=== PATIENT | male | born 1970 | race Caucasian/White ===

== ENCOUNTER 2021-11-07 06:23 | Outpatient (REF) | payer BC, SELFPAY ==
[2021-11-07 11:33] LABS: Appearance Urine TURBID; Color Urine YELLOW; Glucose Urine UA NEG (NEG); Leukocyte Esterase Urine NEG (NEG); Nitrite Urine NEG (NEG); Specific Gravity - Urine >= 1.030 (1.005-1.025); Urine Blood NEG (NEG); Urine Ketones NEG (NEG); Urine Protein NEG (NEG-TRACE)
[2021-11-07 12:00] LABS: Hematocrit 42.7 % (42.0-52.0); Hemoglobin 14.9 g/dl (14.0-18.0); Mean Corpuscular HGB Conc 34.9 g/dl (31.0-36.0); Mean Corpuscular Volume 91.8 fL (80.0-98.0); Mean Platelet Volume 10.6 fL (9.4-12.4); Platelet Count 236 X10*3/uL (160-400); Red Blood Count 4.65 X10*6/uL (4.60-5.80); Red Cell Distribution Width 11.2 % (11.0-16.0); White Blood Count 4.8 X10*3/uL (4.8-10.8)
[2021-11-07 12:03] LABS: Amorphous Sediment Urine 4+ /LPF; RBC Urine 0 /HPF (0); Squamous Epithelial Cell Urine TRACE /LPF; WBC Urine 0 /HPF (0-4)
[2021-11-07 12:52] LABS: Prostate Specific Antigen Scr 2.74 ng/mL (<0.05-4.0)
[2021-11-07 13:21] LABS: Alanine Aminotransferase 31 U/L (0-40); Albumin Level 4.3 g/dL (3.5-5.0); Alkaline Phosphatase 73 U/L (39-117); Anion Gap 13 (12-20); Aspartate Amino Transferase 20 U/L (5-37); Blood Urea Nitrogen 14 mg/dL (9-16); Calcium 9.3 mg/dL (8.4-10.2); Carbon Dioxide 23 mmol/L (22-29); Chloride 107 mmol/L (96-108); Cholesterol 180 mg/dL; Estimated Glomerular Filt Rate > 60; Glucose Fasting 98 mg/dL (60-99); HDL Cholesterol 44 mg/dL; LDL Cholesterol Calculated 111 mg/dl; Potassium 4.2 mmol/L (3.3-5.1); Sodium 139 mmol/L (135-145); Total Protein 6.7 g/dL (6.5-8.0); Triglycerides 128 mg/dL
== END 2021-11-07 06:24 | disposition home or self-care (01) ==
LOC: HO.HMGCLDS 06:23
PROVIDERS: PCP Internal Medicine; Visit Provider Internal Medicine
DX: Z00.00 Encounter for general adult medical examination without abnormal findings (principal); Z12.5 Encounter for screening for malignant neoplasm of prostate; E78.2 Mixed hyperlipidemia
CPT/HCPCS: 36415; 80053; 80061; 81001; 84153; 85027

== ENCOUNTER 2022-03-13 11:40 | Outpatient (REF) | payer BC, SELFPAY ==
[2022-03-13 15:08] LABS: Blood Urea Nitrogen 14 mg/dL (9-16); Estimated Glomerular Filt Rate > 60
== END 2022-03-13 11:41 | disposition home or self-care (01) ==
LOC: HO.HMGCLDS 11:40
PROVIDERS: PCP Internal Medicine; Visit Provider Internal Medicine
DX: Z98.890 Other specified postprocedural states (principal); Z82.49 Family history of ischemic heart disease and other diseases of the circulatory system
CPT/HCPCS: 36415; 82565; 84520

== ENCOUNTER 2022-03-25 08:58 | Outpatient (REF) | payer BC, SELFPAY ==
--- NOTE | ~2022-03-25 | CT_ITS ---
EXAMINATION: CTA OF THE CHEST WITHOUT AND WITH CONTRAST CLINICAL INFORMATION: Family history of ischemic heart disease COMPARISON: Chest x-ray 10/21/2016. TECHNIQUE: CT angiography of the chest was performed without and with contrast. 70 mL Omnipaque 350 administered intravenously without complication. 3D POSTPROCESSING: Multiple 3-D angiographic images were processed from the initial data set by the [facility] under concurrent physician supervision. DOSE LOWERING TECHNIQUES: This CT examination was performed using dose optimization techniques as appropriate, variously including the following: - Automated exposure control - Adjustment of mA and/or kV according to patient size (this includes techniques or standardized protocols for targeted exams where dose is matched to indication/reason for exam; i.e. extremities or head) - Use of iterative construction technique DOSE-LENGTH PRODUCT: 1087 FINDINGS: CORONARY ARTERIES: No substantial calcium. ASCENDING AORTA: Pulsation artifact obscures the aortic root and creates artifact. The valve appears tricuspid and the sinuses measure up to 5.1 x 4.3 cm, which may be artifactually enlarged due to pulsation. This could be correlated with echocardiogram. The sinotubular junction measures 4.5 x 3.9 cm. The tubular segment measures 4.6 x 4.3 cm. AORTIC ARCH: The proximal aortic arch measures 3.8 x 3.5 cm. The distal aortic arch measures 3.0 x 2.8 cm. Variant aortic arch anatomy. The innominate artery and the left common carotid artery share an origin. The left vertebral artery arises independently from the arch as the second vessel. The left subclavian artery is the third vessel. The origins are widely patent. There is minimal atherosclerosis of the proximal left subclavian artery. DESCENDING AORTA: The proximal segment measures 3.0 x 2.8 cm. The distal segment measures 2.8 x 2.6 cm. INCLUDED UPPER ABDOMINAL AORTA: The upper abdominal aorta is normal in caliber. The included celiac artery is mildly stenosed at the origin. PULMONARY ARTERIES: The exam was performed in the systemic arterial phase and not timed to evaluate the pulmonary arteries. NONVASCULAR: Arterial phase imaging limits evaluation of nonvascular structures. No suspicious lung nodules. No mediastinal adenopathy. Fatty liver. Degenerative changes in the thoracic spine. CT/CT angio chest aorta IMPRESSION: Ascending aortic aneurysm measuring 4.6 x 4.3 cm. Pulsation artifact limits accurate evaluation of the aortic root which measures up to 5.1 x 4.3 cm. Recommend correlation with echocardiogram.
[2022-03-25] MEDS: iohexoL 350 MG/ML 75 ML INFUS..BTL 70 ML IV (09:50)
== END 2022-03-25 08:59 | disposition home or self-care (01) ==
LOC: HO.CT 08:58
PROVIDERS: PCP Internal Medicine; Visit Provider Internal Medicine
DX: Z13.6 Encounter for screening for cardiovascular disorders (principal); Z82.49 Family history of ischemic heart disease and other diseases of the circulatory system
CPT/HCPCS: 71275; Q9967

== ENCOUNTER → 2022-04-23 08:26 | Outpatient (REF) | payer BC, SELFPAY ==
--- NOTE | 2022-04-23 08:31 | CA_ITS ---
Transthoracic Echocardiogram Patient (Last, First, Middle): Stefano Simmons A Gender: Male Date of : 1970 Age: 51 Procedure Date: 04/23/2022 Procedure Type: Transthoracic Echocardiogram Location: OP Height: 190.5 cm Weight: 103.42 kg BSA: 2.32 m2 Heart Rate: 60 bpm BP: 130 / 100 mmHg Embroidery Supervisor: JANELLE García MD: Diane Polanco MD Marble Installer Supervisor: Devin Jay MD Symptoms: I77.810 - Thoracic aortic ectasia Study Quality: Fair ECG Rhythm: Sinus Conclusions: - 1. Moderately dilated ascending aorta at 4.5 cm 2. Normal LV systolic and diastolic function 3. Normal RV systolic pressure 4. Normal cardiac valvular Doppler 5. No gross pericardial effusion Findings Left Ventricle Normal left ventricular size, thickness, and systolic function. The visually estimated ejection fraction is between 55-60%. Spectral Doppler is indicative of a normal filling pattern. Right Ventricle Normal right ventricular cavity size. There is low normal right ventricular systolic function. Atria The left atrium is likely dilated. There is no evidence of interatrial shunt. The right atrium is normal in size. Aortic Valve There is mild calcification of the aortic valve. There is no aortic valve stenosis. There is no aortic valve regurgitation. Mitral Valve Normal mitral valve structure and function. There is trace mitral valve regurgitation. There is no mitral valve stenosis. Pulmonic Valve The pulmonic valve is likely normal. Tricuspid Valve Likely normal tricuspid valve structure and function. The right ventricular systolic pressure is normal. The right ventricular systolic pressure is 20 mmHg. Normal right atrial pressure. There is no evidence of pulmonary hypertension. Great Vessels The pulmonary artery was not well visualized. There is moderate dilatation of the ascending aorta measuring 4.50 cm. Venous The inferior vena cava is normal in size and collapses greater than 50% with inspiration. Pericardium/Pleural There is no evidence of pericardial effusion. Prior Study Comparison No prior study available for comparison. Measurements 2D Linear Measurements IVSd: 1.24 0.6-0.9/0.6-1.0 cm LVIDd: 5.44 3.9-5.3/4.2-5.9 cm LVIDd Index: 2.34 2.4-3.2/2.2-3.1 cm/m2 LVIDs: 3.58 2.0-3.6 cm LVPWd: 0.95 0.7-1.1 cm LA Diam: 4.00 2.7-3.8/3.0-4.0 cm LAIDs Index: 1.72 1.5-2.3 cm/m2 LV Mass: 295.26 67-162/88-224 g LV Mass Index: 127.27 43-95/49-115 g/m2 LVOT Diam: 2.60 3.0+(-)1.3 cm 2D Systolic Function EF 4C: 55.30 >55% EF 2C: 58.40 >55% EF BiP: 55.80 >55% Mitral Valve MV Pk E: 0.63 MV PK A: 0.52 MV Decel Time: 180.00 E/A: 1.20 E'Lateral: 11.30 E'Medial: 6.42 E/E' Med: 9.80 E/E' Lat: 5.50 PHT: 53.00 MVA PHT: 4.15 Decel [place]: 3.48 Aortic Valve AoV Pk Jean-Pierre: 1.24 AoV Mn Jean-Pierre: 0.92 AoV VTI: 0.28 AoV Pk Grad: 6.00 Aov Mn Grad: 4.00 SHAREE Cont.VTI: 4.95 LVOT LVOT Pk Jean-Pierre: 1.20 LVOT Mn Jean-Pierre: 0.75 LVOT VTI: 0.26 LVOT Pk Grad: 6.00 LVOT Mn Grad: 3.00 LVOT Diam: 2.60 LVOT Area: 5.31 Diastolic Function MV Pk E: 0.63 MV Pk A: 0.52 E/A: 1.20 E'Medial: 6.42 E/E' Med: 9.80 E' Laterial: 11.30 E/E' Lat: 5.50 Right Ventricle TAPSE (mm): 16.80 TVS' Jean-Pierre: 13.80 Tricuspid Valve TR Pk Jean-Pierre: 2.04 TR Pk Grad: 17.00 RA Press: 3.00 RVSP: 20.00 Great Vessels Aorta Sinus of Valsalva: 5.00 2.0-3.5 cm Ao Asc: 4.50 2.1-3.4 cm Pulmonary Valve PV Pk Jean-Pierre: 0.71 Peak PV Grad: 2.00 Updated in Other Vendor System with Status of Final Devin Jay MD electronically signed on 04/23/2022 12:02:24 PM with status of Final
== END ==
LOC: HO.CARD 08:26
PROVIDERS: PCP Internal Medicine; Visit Provider Internal Medicine
DX: I77.810 Thoracic aortic ectasia (principal)
CPT/HCPCS: 93306

== ENCOUNTER → 2023-04-16 10:16 | Outpatient (BNVA) | payer SELFPAY | PROVIDERS: PCP Internal Medicine; Visit Provider Physician Assistant ==

== ENCOUNTER 2023-04-23 08:48 | Outpatient (AMB) | payer BC, SELFPAY ==
[2023-04-23 08:57] VITALS: BP 110/76; PULSE 65; O2SAT 97; BMI 29.7
--- NOTE | 2023-04-23 08:57 | A.OFFPC_ITS ---
Vital Signs 04/23/23 08:57 Height 6 ft 3 in Weight 238 lb BMI 29.7 BP 110/76 Blood Pressure Location Lt brachial Position Sitting Pulse 65 Pulse Source Pulse Oximeter Pulse Oximetry (%) 97 Oxygen Delivery Method Room Air Intake Visit Reasons: Annual PE Intake Note: Pt is here today for PE. Allergies No Known Allergies Allergy (Verified 04/23/23 08:57) Medication List - Last Reconciled 04/23/23 by Diane Polanco MD omeprazole 20 mg PO DAILY simvastatin 20 mg PO DAILY Tobacco use date assessed: 04/23/23 Dental Screening Dental Screen Date: 04/23/23 Did you have a dental visit in the last 12 months?: Yes Did you have a dental problem in the last 6 months where you did not have access to dental care?: No Was dental information given to patient?: Patient has dentist HPI Annual PE HPI Details Patient presents for physical PFSH Medical History (Updated 04/23/23 @ 09:58 by Diane Polanco MD) Annual physical exam Surgical History (Updated 04/23/23 @ 09:59 by Diane Polanco MD) H/O esophagogastroduodenoscopy H/O colonoscopy Family History Father No problems noted. Mother No problems noted. Social History Household Members Other:: , 2 daughters in [place] school Housing: House Patient Tobacco Use Status: Never used Tobacco e-Cigarette/Vaping Use: Never Used Current occupational status: employed Cognitive needs: No Hearing needs: No Vision needs: No Questionnaire PHQ-9 Over the last 2 weeks, how often have you been bothered by any of the following problems? 1. Little interest or pleasure in doing things: not at all 2. Feeling down, depressed, or hopeless: not at all 3. Trouble falling or staying asleep, or sleeping too much: not at all 4. Feeling tired or having little energy: not at all 5. Poor appetite or overeating: not at all 6. Feeling bad about yourself - or that you are a failure or have let yourself or your family down: not at all 7. Trouble concentrating on things, such as reading the newspaper or watching television: not at all 8. Moving or speaking so slowly that other people could have noticed. Or the opp osite - being so fidgety or restless that you have been moving around a lot more than usual: not at all 9. Thoughts that you would be better off or of hurting yourself in some way: not at all Total score: 0 Depression Screening Interpretation: Negative Source: Developed by Drs. Ervin Sprague, Tiffany Siegel, Yuriy Burton and colleagues, with an educational oliverio from [employer]. Thrive Questionnaire Date Thrive assessed: 04/23/23 I am a: Patient What is your living situation today?: I have a steady place to live Within the past 12 months, did the food you bought not last and you didn't have the money to get more?: Never true Within the past 12 months, did you worry whether your food would run out before you got money to buy more?: Never true Do you have trouble paying for medicines?: No Do you have trouble getting transportation to medical appointments?: No Do you have trouble paying your heating and electricity bill?: No Do you have trouble taking care of your child, family member or friend?: No Do you have trouble with day-to-day activities such as bathing, preparing meals, shopping, managing finances, etc.?: No Are you currently unemployed and looking for a job?: No Are you interested in more education?: No Please select the resources that you would like help with: None Currently or been in a relationship where the following occur: no concerns reported AUDIT C Alcohol Use Questionnaire (AUDIT-C) 1. How often do you have a drink containing alcohol?: 2-3 times a week 2. How many drinks containing alcohol do you have on a typical day when you are drinking?: 3 or 4 3. How often do you have six or more drinks on one occasion?: Never Total Score: 4 RACIEL-7 AMB Questionnaire RACIEL-7 Date RACIEL - 7 assessed: 04/23/23 Feeling nervous, anxious, or on edge: 0 = Not at all Not being able to stop or control worryin = Not at all Worrying too much about different things: 0 = Not at all Trouble relaxin = Not at all Being so restless that it is hard to sit still: 0 = Not at all Becoming easily annoyed or irritable: 0 = Not at all Feeling afraid as if something awful might happen: 0 = Not at all Total RACIEL-7 score (0-4 normal; 5-9 mild; 10-14 moderate; 15-21 severe): 0 Source: Developed by Drs. Ervin Sprague, Tiffany Siegel, Yuriy Burton and colleagues, with an educational oliverio from [employer]. Review of Systems Const All systems reviewed & are unremarkable except as noted in HPI and below Reports no additional complaints Eyes Reports no additional complaints ENT Reports no additional complaints Card Reports no additional complaints Resp Reports no additional complaints GI Reports no additional complaints Reports no additional complaints Physical exam (Primary Care) Vital Signs: Last Vital Signs Pulse 65 04/23/23 08:57 BP 110/76 04/23/23 08:57 Pulse Ox 97 04/23/23 08:57 Oxygen Delivery Method Room Air 04/23/23 08:57 BMI result Body Mass Index 29.7 Tobacco/Smoking Status: Tobacco use Status Tobacco use date assessed 04/23/23 04/23/23 09:00 Patient Tobacco Use Status Never used Tobacco 04/23/23 09:00 e-Cigarette/Vaping Use Never Used 04/23/23 08:57 PHQ-9: PHQ-9 Score PHQ-9: Total score 0 04/23/23 09:13 Depression Screening Interpretation: Negative Thrive Assessment: Date of Thrive Assessment Date Thrive assessed 04/23/23 04/23/23 09:13 Currently or been in a relationship where the following occur: no concerns reported Const General: no acute distress HENOR Head: Yes normal to inspection Ears: hearing grossly normal bilaterally Face and sinus: Yes normal facial exam Throat: Yes posterior oropharynx normal Eyes General: appearance normal, both eyes and all related structures Neck Neck: Yes no lymphadenopathy and Yes supple Resp Effort & Inspection: normal respiratory effort Auscultation: clear to auscultation bilaterally Cardio Rhythm: regular rhythm Heart sounds: S1 normal heart sound present and S2 normal heart sound present GI Inspection: Yes normal to inspection Palpation (GI): Soft to palpation Percussion: Yes normal to percussion Auscultation: normal bowel sounds Assessment and Plan Assessment & Plan (1) Ascending aorta dilation: Comment: 4.4 cm , 06/2022, unchanged 10/2022 f/u with [facility] cardiac surgeon , CT Q 6 months Code(s): I77.810 - Thoracic aortic ectasia (2) FHx: aortic aneurysm: Comment: FATHER chest aneurysm, paternal chest aneurysm uncle 58 Code(s): Z82.49 - Family history of ischemic heart disease and other diseases of the circulatory system (3) Mixed hyperlipidemia: Code(s): E78.2 - Mixed hyperlipidemia Plan: Simvastatin will be changed to Crestor 20 mg a day to keep LDL less than 100. Patient will return for fasting blood work 1 month after starting Crestor. Low- cholesterol diet regular physical activity discussed with the patient (4) Annual physical exam: Code(s): Z00.00 - Encounter for general adult medical examination without abnormal findings Plan: Well-balanced diet regular physical activity discussed with the patient. He is up-to-date with colonoscopy EGD. Patient will return in 1 year for physical with fasting labs before (5) H/O esophagogastroduodenoscopy: Comment: pre Barretts esphagus EGD 2017, repeat [address] Elias, on lifetime PPI Code(s): Z98.890 - Other specified postprocedural states Plan: Continue PPI Orders: Orders Comprehensive [place]. Panel Fast Today E78.2 - Mixed hyperlipidemia, I77.810 - Thoracic aortic ectasia, Z00.00 - Encounter for general adult medical examination without abnormal findings, Z82.49 - Family history of ischemic heart disease and other diseases of the circulatory system Lipid Panel Today E78.2 - Mixed hyperlipidemia, I77.810 - Thoracic aortic ectasia, Z00.00 - Encounter for general adult medical examination without abnormal findings, Z82.49 - Family history of ischemic heart disease and other diseases of the circulatory system PSA,Total (Free>4and<10) Today E78.2 - Mixed hyperlipidemia, I77.810 - Thoracic aortic ectasia, Z00.00 - Encounter for general adult medical examination without abnormal findings, Z82.49 - Family history of ischemic heart disease and other diseases of the circulatory system Lipid Panel 365 Days E78.2 - Mixed hyperlipidemia, I77.810 - Thoracic aortic ectasia, Z00.00 - Encounter for general adult medical examination without abnormal findings PSA,Total (Free>4and<10) 365 Days E78.2 - Mixed hyperlipidemia, I77.810 - Thoracic aortic ectasia, Z00.00 - Encounter for general adult medical examination without abnormal findings Complete Blood Count Auto Diff Today E78.2 - Mixed hyperlipidemia, I77.810 - Thoracic aortic ectasia, Z00.00 - Encounter for general adult medical examination without abnormal findings, Z82.49 - Family history of ischemic heart disease and other diseases of the circulatory system TSH reflex Free T4 Today E78.2 - Mixed hyperlipidemia, I77.810 - Thoracic aortic ectasia, Z00.00 - Encounter for general adult medical examination without abnormal findings, Z82.49 - Family history of ischemic heart disease and other diseases of the circulatory system Comprehensive [place]. Panel Fast 365 Days E78.2 - Mixed hyperlipidemia, I77.810 - Thoracic aortic ectasia, Z00.00 - Encounter for general adult medical examination without abnormal findings Complete Blood Count Auto Diff 365 Days E78.2 - Mixed hyperlipidemia, I77.810 - Thoracic aortic ectasia, Z00.00 - Encounter for general adult medical examination without abnormal findings Medications: New rosuvastatin (Crestor) 20 mg PO DAILY 90 tabs 3RF Coding Level of Care Code Est Pt Prev Care 40-64y(94362) Diagnoses Ascending aorta dilation I77.810 FHx: aortic aneurysm Z82.49 Mixed hyperlipidemia E78.2 Annual physical exam Z00.00 H/O esophagogastroduodenoscopy Z98.890
== END 2023-04-23 10:00 | disposition home or self-care (01) ==
PROVIDERS: PCP Internal Medicine; Visit Provider Internal Medicine
DX: Z00.00 Encounter for general adult medical examination without abnormal findings (principal); I77.810 Thoracic aortic ectasia; Z82.49 Family history of ischemic heart disease and other diseases of the circulatory system; Z98.890 Other specified postprocedural states; E78.2 Mixed hyperlipidemia
CPT/HCPCS: 99396

== ENCOUNTER 2023-06-20 07:07 | Outpatient (REF) | payer BC, SELFPAY ==
[2023-06-20 11:22] LABS: MANUAL DIFF FLAG NO
[2023-06-20 11:42] LABS: Basophils Percent Auto 0.4 % (0-2); Eosinophils Absolute Auto 0.1 X10*3/uL (0.0-0.4); Eosinophils Percent Auto 2.7 % (0-4); Hematocrit 44.1 % (42.0-52.0); Hemoglobin 15.5 g/dl (14.0-18.0); Imm Gran Abs Auto 0.02 X10*3/uL (0.00-0.03); Imm Gran Pct Auto 0.4 % (0.0-0.4); Lymphocytes Absolute Auto 1.1 X10*3/uL (1.2-4.9); Lymphocytes Percent Auto 20.9 % (20-40); Mean Corpuscular HGB Conc 35.1 g/dl (31.0-36.0); Mean Corpuscular Hemoglobin 32.3 pg (27.0-33.0); Mean Corpuscular Volume 91.9 fL (80.0-98.0); Mean Platelet Volume 10.9 fL (9.4-12.4); Monocytes Absolute Auto 0.6 X10*3/uL (0.1-1.2); Monocytes Percent Auto 10.6 % (2-11); Neutrophils Absolute Auto 3.4 x10*3/uL (2.0-8.3); Platelet Count 262 X10*3/uL (160-400); Red Cell Distribution Width 11.2 % (11.0-16.0); White Blood Count 5.3 X10*3/uL (4.8-10.8)
[2023-06-20 12:17] LABS: PSA,Total (Free>4and<10) 2.96 ng/mL (0.00-4.00)
[2023-06-20 12:28] LABS: Alanine Aminotransferase 40 U/L (0-40); Albumin Level 4.5 g/dL (3.5-5.0); Alkaline Phosphatase 81 U/L (39-117); Anion Gap 11 (12-20); Aspartate Amino Transferase 25 U/L (5-37); Bilirubin Total 0.4 mg/dL (0.0-1.0); Blood Urea Nitrogen 14 mg/dL (9-16); Calcium 9.5 mg/dL (8.4-10.2); Carbon Dioxide 25 mmol/L (22-29); Chloride 110 mmol/L (96-108); Cholesterol 189 mg/dL (<200); Estimated Glomerular Filt Rate > 60; Glucose Fasting 93 mg/dL (60-99); HDL Cholesterol 46 mg/dL (>40); LDL Cholesterol Calculated 96 mg/dL (<100); Potassium 4.5 mmol/L (3.3-5.1); Sodium 141 mmol/L (135-145); Total Protein 7.3 g/dL (6.5-8.0); Triglycerides 239 mg/dL (<150)
[2023-06-20 12:29] LABS: TSH reflex Free T4 1.42 uIU/mL (0.32-4.0)
== END 2023-06-20 07:08 | disposition home or self-care (01) ==
LOC: HO.HMGCLDS 07:07
PROVIDERS: PCP Internal Medicine; Visit Provider Internal Medicine
DX: Z00.00 Encounter for general adult medical examination without abnormal findings (principal); Z12.5 Encounter for screening for malignant neoplasm of prostate; I77.810 Thoracic aortic ectasia; E78.2 Mixed hyperlipidemia; Z82.49 Family history of ischemic heart disease and other diseases of the circulatory system
CPT/HCPCS: 36415; 80053; 80061; 84153; 84443; 85025

== ENCOUNTER 2024-04-20 06:16 | Outpatient (REF) | payer BC, SELFPAY ==
[2024-04-20 10:41] LABS: Anion Gap 11 (12-20); Blood Urea Nitrogen 14 mg/dL (9-16); Calcium 9.6 mg/dL (8.4-10.2); Carbon Dioxide 25 mmol/L (22-29); Chloride 106 mmol/L (96-108); Estimated Glomerular Filt Rate > 60; Glucose Fasting 108 mg/dL (60-99); Potassium 4.2 mmol/L (3.3-5.1); Sodium 138 mmol/L (135-145)
== END 2024-04-20 06:17 | disposition home or self-care (01) ==
LOC: HO.HMGCLDS 06:16
PROVIDERS: PCP Internal Medicine; Visit Provider Internal Medicine Cardiovascular Disease
DX: E78.2 Mixed hyperlipidemia (principal); I71.21 Aneurysm of the ascending aorta, without rupture
CPT/HCPCS: 36415; 80048

== ENCOUNTER 2024-05-03 08:00 | Outpatient (AMB) | payer BC, SELFPAY ==
[2024-05-03 08:01] VITALS: BP 120/76; PULSE 67; O2SAT 96; BMI 29.0
--- NOTE | 2024-05-03 08:01 | MHC.PC.OV ---
Vital Signs 05/03/24 08:01 Height 6 ft 3 in Weight 232 lb BMI 29.0 BP 120/76 Blood Pressure Location Rt brachial Position Sitting Pulse 67 Pulse Source Pulse Oximeter Pulse Oximetry (%) 96 Oxygen Delivery Method Room Air Intake Visit Reasons: PE Intake Note: Pt is here today for PE. Allergies No Known Allergies Allergy (Verified 05/03/24 08:03) Medication List - Last Reconciled 05/03/24 by Diane Polanco MD omeprazole 20 mg PO DAILY rosuvastatin 20 mg PO DAILY Tobacco use date assessed: 05/03/24 Dental Screening Dental Screen Date: 05/03/24 Did you have a dental visit in the last 12 months?: Yes Did you have a dental problem in the last 6 months where you did not have access to dental care?: No Was dental information given to patient?: Patient has dentist HPI PE HPI Details Patient presents for physical. He is scheduled to have chest and abdominal CT angiogram of aorta to follow-up on ascending aorta aneurysm. Patient follows up with the Cardiology in [place]. Patient reports his witnessed him having apnea episodes and loud snoring. [facility] Medical History (Updated 05/03/24 @ 08:17 by Diane Polanco MD) Annual physical exam Surgical History H/O esophagogastroduodenoscopy H/O colonoscopy Family History Father No problems noted. Mother No problems noted. Social History Household Members Other:: , 2 daughters in [place] school Housing: House Patient Tobacco Use Status: Never used Tobacco e-Cigarette/Vaping Use: Never Used service: No Current occupational status: employed Cognitive needs: No Hearing needs: No Vision needs: No Questionnaire PHQ-9 Over the last 2 weeks, how often have you been bothered by any of the following problems? 1. Little interest or pleasure in doing things: not at all 2. Feeling down, depressed, or hopeless: not at all 3. Trouble falling or staying asleep, or sleeping too much: not at all 4. Feeling tired or having little energy: not at all 5. Poor appetite or overeating: not at all 6. Feeling bad about yourself - or that you are a failure or have let yourself or your family down: not at all 7. Trouble concentrating on things, such as reading the newspaper or watching television: not at all 8. Moving or speaking so slowly that other people could have noticed. Or the opposite - being so fidgety or restless that you have been moving around a lot more than usual: not at all 9. Thoughts that you would be better off or of hurting yourself in some way: not at all Total score: 0 Depression Screening Interpretation: Negative Depression Screening Done: Yes 54524 - PHQ-9 Billing: Yes Source: Developed by Drs. Ervin Sprague, Tiffany Siegel, Yuriy Burton and colleagues, with an educational oliverio from [employer]. Thrive Questionnaire Date Thrive assessed: 05/03/24 I am a: Patient What is your living situation today?: I have a steady place to live Within the past 12 months, did the food you bought not last and you didn't have the money to get more?: Never true Within the past 12 months, did you worry whether your food would run out before you got money to buy more?: Never true Do you have trouble paying for medicines?: No Do you have trouble getting transportation to medical appointments?: No Do you have trouble paying your heating and electricity bill?: No Do you have trouble taking care of your child, family member or friend?: No Do you have trouble with day-to-day activities such as bathing, preparing meals, shopping, managing finances, etc.?: No Are you currently unemployed and looking for a job?: No Are you interested in more education?: No Please select the resources that you would like help with: None Currently or been in a relationship where the following occur: No concerns reported THRIVE Score: 0 AUDIT C Alcohol Use Questionnaire (AUDIT-C) 1. How often do you have a drink containing alcohol?: 2-3 times a week 2. How many drinks containing alcohol do you have on a typical day when you are drinking?: 3 or 4 3. How often do you have six or more drinks on one occasion?: Monthly Total Score: 6 RACIEL-7 AMB Questionnaire RACIEL-7 Date RACIEL - 7 assessed: 05/03/24 Feeling nervous, anxious, or on edge: 0 = Not at all Not being able to stop or control worryin = Not at all Worrying too much about different things: 0 = Not at all Trouble relaxin = Not at all Being so restless that it is hard to sit still: 0 = Not at all Becoming easily annoyed or irritable: 0 = Not at all Feeling afraid as if something awful might happen: 0 = Not at all Total RACIEL-7 score (0-4 normal; 5-9 mild; 10-14 moderate; 15-21 severe): 0 Source: Developed by Drs. Ervin Sprague, Tiffany Siegel, Yuriy Burton and colleagues, with an educational oliverio from [employer]. RACIEL-7 Assessment Billing RACIEL-7 Assessment Tool: RACIEL-7 Assessment 04648 Review of Systems Const All systems reviewed & are unremarkable except as noted in HPI and below Eyes Reports no additional complaints ENT Reports no additional complaints Card Reports no additional complaints Resp Reports no additional complaints GI Reports no additional complaints Reports no additional complaints Musc Reports no additional complaints Physical exam (Primary Care) Vital Signs: Last Vital Signs Pulse 67 05/03/24 08:01 BP 120/76 05/03/24 08:01 Pulse Ox 96 05/03/24 08:01 Oxygen Delivery Method Room Air 05/03/24 08:01 BMI result Body Mass Index 29.0 Tobacco/Smoking Status: Tobacco use Status Tobacco use date assessed 05/03/24 05/03/24 08:06 Patient Tobacco Use Status Never used Tobacco 05/03/24 08:02 e-Cigarette/Vaping Use Never Used 05/03/24 08:02 PHQ-9: PHQ-9 Score PHQ-9: Total score 0 05/03/24 08:06 Depression Screening Interpretation: Negative Thrive Assessment: Date of Thrive Assessment Date Thrive assessed 05/03/24 05/03/24 08:06 Currently or been in a relationship where the following occur: No concerns reported Const General: no acute distress HENMT Head: Yes normal to inspection Ears: hearing grossly normal bilaterally General nose exam: Normal external nose present Mouth: Normal oral and palatal mucosa present Throat: Yes posterior oropharynx normal Eyes General: appearance normal, both eyes and all related structures Neck Neck: Yes no lymphadenopathy and Yes supple Resp Effort & Inspection: normal respiratory effort Auscultation: clear to auscultation bilaterally Cardio Rhythm: regular rhythm Heart sounds: S1 normal heart sound present and S2 normal heart sound present GI Inspection: Yes normal to inspection Palpation (GI): Soft to palpation Percussion: Yes normal to percussion Auscultation: normal bowel sounds Assessment and Plan Assessment & Plan (1) Mixed hyperlipidemia: Code(s): E78.2 - Mixed hyperlipidemia Plan: Continue rosuvastatin return for fasting labs including lipid profile (2) Annual physical exam: Code(s): Z00.00 - Encounter for general adult medical examination without abnormal findings Plan: Well-balanced diet regular physical activity discussed with the patient. He is up-to-date with colonoscopy (3) Ascending aorta dilation: Comment: 4.4 cm , 06/2022, unchanged 10/2022 f/u with [facility] cardiac surgeon , CT Q 6 months Code(s): I77.810 - Thoracic aortic ectasia Plan: Follow-up with Cardiology (4) Sleep apnea: Code(s): G47.30 - Sleep apnea, unspecified Plan: Scheduled sleep test to evaluate for obstructive sleep apnea (5) FHx: aortic aneurysm: Comment: FATHER chest aneurysm, paternal chest aneurysm uncle 58 Code(s): Z82.49 - Family history of ischemic heart disease and other diseases of the circulatory system Orders: Orders Hemoglobin A1c Today E78.2 - Mixed hyperlipidemia, Z00.00 - Encounter for general adult medical examination without abnormal findings UA w Microscopic 1 Year E78.2 - Mixed hyperlipidemia, G47.30 - Sleep apnea, unspecified, Z00.00 - Encounter for general adult medical examination without abnormal findings, Z82.49 - Family history of ischemic heart disease and other diseases of the circulatory system PSA,Total (Free>4and<10) 1 Year Z00.00 - Encounter for general adult medical examination without abnormal findings Comprehensive [place]. Panel Fast Today E78.2 - Mixed hyperlipidemia, I77.810 - Thoracic aortic ectasia, Z00.00 - Encounter for general adult medical examination without abnormal findings Lipid Panel Today E78.2 - Mixed hyperlipidemia, I77.810 - Thoracic aortic ectasia, Z00.00 - Encounter for general adult medical examination without abnormal findings Complete Blood Count Auto Diff Today E78.2 - Mixed hyperlipidemia, I77.810 - Thoracic aortic ectasia, Z00.00 - Encounter for general adult medical examination without abnormal findings PSA,Total (Free>4and<10) Today E78.2 - Mixed hyperlipidemia, I77.810 - Thoracic aortic ectasia, Z00.00 - Encounter for general adult medical examination without abnormal findings UA w Microscopic Today E78.2 - Mixed hyperlipidemia, I77.810 - Thoracic aortic ectasia, Z00.00 - Encounter for general adult medical examination without abnormal findings RT home sleep study Today G47.30 - Sleep apnea, unspecified Comprehensive [place]. Panel Fast 1 Year E78.2 - Mixed hyperlipidemia, G47.30 - Sleep apnea, unspecified, Z00.00 - Encounter for general adult medical examination without abnormal findings, Z82.49 - Family history of ischemic heart disease and other diseases of the circulatory system Lipid Panel 1 Year E78.2 - Mixed hyperlipidemia, G47.30 - Sleep apnea, unspecified, Z00.00 - Encounter for general adult medical examination without abnormal findings, Z82.49 - Family history of ischemic heart disease and other diseases of the circulatory system Complete Blood Count Auto Diff 1 Year E78.2 - Mixed hyperlipidemia, G47.30 - Sleep apnea, unspecified, Z00.00 - Encounter for general adult medical examination without abnormal findings, Z82.49 - Family history of ischemic heart disease and other diseases of the circulatory system Coding Level of Care Code Est Pt Prev Care 40-64y(74217) Diagnoses Mixed hyperlipidemia E78.2 Annual physical exam Z00.00 Ascending aorta dilation I77.810 Sleep apnea G47.30 FHx: aortic aneurysm Z82.49 Additional Codes RACIEL-7 Assessment Billing - RACIEL-7 Assessment Tool: RACIEL-7 Assessment [id number] ([id number])
== END 2024-05-03 08:41 | disposition home or self-care (01) ==
PROVIDERS: PCP Internal Medicine; Visit Provider Internal Medicine
DX: E78.2 Mixed hyperlipidemia (principal); Z00.00 Encounter for general adult medical examination without abnormal findings; I77.810 Thoracic aortic ectasia; G47.30 Sleep apnea, unspecified; Z82.49 Family history of ischemic heart disease and other diseases of the circulatory system

== ENCOUNTER → 2024-05-03 08:00 | Outpatient (BNVA) | payer BC, SELFPAY | PROVIDERS: PCP Internal Medicine; Visit Provider Internal Medicine | DX: Z00.00 Encounter for general adult medical examination without abnormal findings (principal); E78.2 Mixed hyperlipidemia; I77.810 Thoracic aortic ectasia; G47.30 Sleep apnea, unspecified; Z79.899 Other long term (current) drug therapy; Z82.49 Family history of ischemic heart disease and other diseases of the circulatory system | CPT/HCPCS: 96127 ==

== ENCOUNTER 2024-05-05 06:14 | Outpatient (REF) | payer BC, SELFPAY ==
[2024-05-05 10:10] LABS: MANUAL DIFF FLAG NO
[2024-05-05 10:17] LABS: Basophils Percent Auto 0.6 % (0-2); Eosinophils Absolute Auto 0.1 X10*3/uL (0.0-0.4); Eosinophils Percent Auto 1.8 % (0-4); Hematocrit 42.7 % (42.0-52.0); Hemoglobin 14.8 g/dl (14.0-18.0); Imm Gran Abs Auto 0.02 X10*3/uL (0.00-0.03); Imm Gran Pct Auto 0.4 % (0.0-0.4); Lymphocytes Absolute Auto 1.1 X10*3/uL (1.2-4.9); Lymphocytes Percent Auto 21.2 % (20-40); Mean Corpuscular HGB Conc 34.7 g/dl (31.0-36.0); Mean Corpuscular Volume 92.4 fL (80.0-98.0); Mean Platelet Volume 10.5 fL (9.4-12.4); Monocytes Absolute Auto 0.5 X10*3/uL (0.1-1.2); Monocytes Percent Auto 10.7 % (2-11); Neutrophils Absolute Auto 3.3 x10*3/uL (2.0-8.3); Neutrophils Percent Auto 65.3 % (45-73); Platelet Count 244 X10*3/uL (160-400); Red Blood Count 4.62 X10*6/uL (4.60-5.80); Red Cell Distribution Width 11.6 % (11.0-16.0)
[2024-05-05 10:31] LABS: Estimated Average Glucose 103 mg/dL; Hemoglobin A1C 123.7751 umol/L; Hemoglobin A1c % 5.2 % (<6.0)
[2024-05-05 10:34] LABS: Appearance Urine Clear; Color Urine Yellow; Glucose Urine UA Negative (Negative); Leukocyte Esterase Urine Negative (Negative); Nitrite Urine Negative (Negative); Specific Gravity - Urine 1.025 (1.005-1.025); Urine Blood Negative (Negative); Urine Ketones Negative (Negative); Urine Protein Negative (Neg-Trace)
[2024-05-05 10:45] LABS: Bacteria Urine None Seen (None Seen); Hyaline Casts Urine 0-2 /LPF (0-2); PSA,Total (Free>4and<10) 2.66 ng/mL (0.00-4.00); RBC Urine 0-2 /HPF (0-2); Squamous Epithelial Cell Urine 0-2 /HPF (0-2); WBC Urine 0-5 /HPF (0-5)
[2024-05-05 10:50] LABS: Alanine Aminotransferase 37 U/L (0-40); Albumin Level 4.4 g/dL (3.5-5.0); Alkaline Phosphatase 75 U/L (39-117); Anion Gap 10 (12-20); Aspartate Amino Transferase 22 U/L (5-37); Bilirubin Total 0.8 mg/dL (0.0-1.0); Blood Urea Nitrogen 17 mg/dL (9-16); Calcium 9.8 mg/dL (8.4-10.2); Carbon Dioxide 25 mmol/L (22-29); Chloride 107 mmol/L (96-108); Cholesterol 193 mg/dL (<200); Estimated Glomerular Filt Rate > 60; Glucose Fasting 112 mg/dL (60-99); HDL Cholesterol 53 mg/dL (>40); LDL Cholesterol Calculated 104 mg/dL (<100); Potassium 4.4 mmol/L (3.3-5.1); Sodium 138 mmol/L (135-145); Total Protein 7.2 g/dL (6.5-8.0); Triglycerides 182 mg/dL (<150)
== END 2024-05-05 06:15 | disposition home or self-care (01) ==
LOC: HO.HMGCLDS 06:14
PROVIDERS: PCP Internal Medicine; Visit Provider Internal Medicine
DX: Z00.00 Encounter for general adult medical examination without abnormal findings (principal); E78.2 Mixed hyperlipidemia; I77.810 Thoracic aortic ectasia; Z12.5 Encounter for screening for malignant neoplasm of prostate; Z13.1 Encounter for screening for diabetes mellitus
CPT/HCPCS: 36415; 80053; 80061; 81001; 83036; 84153; 85025

== ENCOUNTER → 2024-06-23 09:12 | Outpatient (REF) | payer BC, SELFPAY | LOC: HO.SL 09:12 | PROVIDERS: PCP Internal Medicine; Visit Provider Internal Medicine | DX: G47.30 Sleep apnea, unspecified (principal) | CPT/HCPCS: 95806 ==

== ENCOUNTER → 2024-06-23 09:32 | Outpatient (BNV) | payer BC, SELFPAY | PROVIDERS: PCP Internal Medicine; Visit Provider Internal Medicine | DX: R06.83 Snoring (principal) | CPT/HCPCS: 95806 ==

== ENCOUNTER 2024-09-06 06:24 | Outpatient (REF) | payer BC, SELFPAY ==
--- OUTSIDE RECORDS SUMMARY | 2024-09-06 06:37 | XMS_ITS | Encounter Summary ---
Author Organization [facility] Address [address] [place] [address] Care Team Providers Care Date Night Sitter Name Role Phone Diane Polanco MD Primary Care Provider [phone] Encounter Details Date Type Department Care Team (Latest Contact Info) Description 05/20/2024 9:04 AM EDT Hospital Encounter TH HISTORIC ENCOUNTERS EASTERN CONVERSION ONLY Mixed hyperlipidemia; Aneurysm of the ascending aorta, without rupture (CMS/HCC) Social History Tobacco Use Types Packs/Day Years Used Date Smoking Tobacco: Never Smokeless Tobacco: Never Alcohol Use Standard Drinks/Week Comments Yes 3 (1 standard drink = 0.6 oz pur e alcohol) soc Sex and Gender Information Value Date Recorded Sex Assigned at Male 09/01/2024 2:12 PM EST Gender Identity Male 09/01/2024 2:12 PM EST Sexual Orientation Not on file Job Start Date Occupation Industry Not on file Not on file Not on file documented as of this encounter Last Filed [...] documented in this encounter Plan of Treatment Scheduled Procedures Name Priority Associated Diagnoses Date/Ti me LEFT HEART CATH / CORONARY ANGIOGRAPHY CVD (cardiovascular disease) documented as of this encounter Procedures Procedure Name Priority Date/Time Associated Diagnosis Comments TRANSTHORACIC ECHOCARDIOGRAM (TTE) COMPLETE (CONTRAST/BUBBLE/3D/JASON CARDIAL STRAIN PRN) Routine 05/20/2024 9:32 AM EDT Mixed hyperlipidemia Aneurysm of the ascending aorta, without rupture (CMS/HCC) documented in this encounter Results * Transthoracic Echocardiogram (Tte) Complete (Contrast/Bubble/3D/Myocardial Strain Prn) (05/20/2024 9:32 AM EDT) Anatomical Region Laterality Modality Other 05/20/2024 Narrative 05/20/2024 9:32 AM EDT Report completed outside of [facility]. ??Refer to scanned document and/or notes for final report. Not Vldtd Procedure Note Historical, Cardiovascular Results, MD - 06/08/2024 Report completed outside of [facility]. Refer to scanned document and/or notesfor final report. Not Vldtd Victoriano Hanley MD CV HISTORICAL CONV P ROCEDURES documented in this encounter Visit Diagnoses Diagnosis Mixed hyperlipidemia Aneurysm of the ascending aorta, without rupture (CMS/HCC) documented in this encounter Care Teams Date Night Sitter Relationship Specialty Start Date End Date Diane Polanco MD [address] [place] [address] PCP - General 04/07/24 documented as of this encounter
--- OUTSIDE RECORDS SUMMARY | 2024-09-06 06:37 | XMS_ITS | Encounter Summary ---
Author Organization [facility] Address [address] [place] [address] Care Team Providers Care Web Engineer Name Role Phone Diane Polanco MD Primary Care Provider [phone] Reason for Visit * Consultation (Urgent) - Closed Specialty Diagnoses / Procedures Referred By Contac t Referred To Contact Cardiothoracic Surgery Diagnoses Mixed hyperlipidemia Aneurysm of ascending aorta without rupture (CMS/HCC) Elevated blood pressure reading Victoriano Hanley MD [address] [place] [address] Kit Gonzalez MD [address] [facility] [address] [place] [address] Referral ID Status Reason Start Date Expiration Date V isits Requested Visits Authorized [id number] Closed Specialty Services Required 08/10/2024 08/10/2025 1 1 Encounter Details Date Type Department Care Team ([facility] Contact Info) Description 08/12/2024 1:30 PM EST Consult Cardiothoracic Surgery - [place] [address] [facility] [address] [place] [phone] Kit Gonzalez MD [address] [facility] [address] [place] [address] Mixed hyperlipidemia; Aneurysm of ascending aorta without rupture (CMS/HCC); Elevated blood pressure reading Social History Tobacco Use Types Packs/Day Years [...] Sign Reading Time Taken Comments Blood Pressure 132/87 08/12/2024 1:29 PM EST Pulse 78 08/12/2024 1:29 PM EST Temperature - - Respiratory Rate 18 08/12/2024 1:29 PM EST Oxygen Saturation 96% 08/12/2024 1:29 PM EST Inhaled Oxygen Concentration - - Weight 107 kg (235 lb) 08/12/2024 1:29 PM EST Height 190.5 cm (6' 3 ) 08/12/2024 1:29 PM EST Body Mass Index 29.37 08/12/2024 1:29 PM EST documented in this encounter Progress Notes * Kit Gonzalez MD - 08/12/2024 1:30 PM EST Cardiac surgery consult note new patient visit This is a patient being referred by Dr. Hanley for consideration of aortic root and ascending aorta replacement. This a 53-year-old male who has a family history on his father side of both aortic and cerebral aneurysms. He has had no symptoms of shortness of breath syncope presyncope angina or back pain. His aneurysm was found incidentally and seen on both echo as well as CAT scan. His past medical history is significant for hyperlipidemia and an elevated blood pressure and GERD. No surgical history Afebrile vital signs stable Normocephalic atraumatic No scars over his chest no pectus Lungs clear Abdomen soft nontender No swelling in his legs I seen the report of the CAT scan with a 4.9 cm aortic root and a 4.7 ascending aorta. I have reviewed the echo myself with a 4.9 cm dilated root with only trace AI and what appears to be a trileaflet valve and normal ventricular function. Impression 53-year-old gentleman with a family history of aortic and cerebral aneurysms on his father side of the family and he has been genetic tested which has resulted in a negative genetic test. He has some degree of hypertension. I have given him 2 options based on the fact that this is a condition that is well-established and his family's booking about and has been a concern. 1 option is to follow his aorta closely with gated CAT scans and to start on a low-dose of losartan Second option is to have his aorta repaired at this point. We have gone over what a valve sparing aortic root is as well as replacing his ascending aorta with it. I have told him that even with this procedure I will still recommend that he go on losartan. This condition occupies his thoughts every day and is a concern for him he understands the indications for aortic replacement in the general population is 5.5 cm and that in patients that have established genetic conditions indications can be as low as 4.5 cm and that his is in nongenetic variant with a strong family history. Being at almost 5 cm and his valve being in good shape for a valve sparing aortic root the plan will be to get a gated CAT scan here at [facility] and a cardiac catheterization and then proceed with valve sparing aortic root replacement. He and his have had the opportunity to ask questions which were answered and there appeared roxana no barriers to learning. documented in this encounter Plan of Treatment Scheduled Procedures Name Priority Associated Diagnoses Date/Ti me LEFT HEART CATH / CORONARY ANGIOGRAPHY CVD (cardiovascular disease) documented as of this encounter Visit Diagnoses Diagnosis Mixed hyperlipidemia Aneurysm of ascending aorta without rupture (CMS/HCC) Elevated blood pressure reading Elevated blood pressure reading without diagnosis of hypertension documented in this encounter Orders Outpatient Referral Count Last Ordered Date Fir st Ordered Date AMB REFERRAL TO CARDIOTHORACIC SURGERY 1 documented in this encounter Care Teams Web Engineer Relationship Specialty Start Date End Date Diane Polanco MD [address] [place] [phone] PCP - General 04/07/24 documented as of this encounter
--- OUTSIDE RECORDS SUMMARY | 2024-09-06 06:37 | XMS_ITS ---
Author Name [facility] Organization Unknown History of Medication Use Medication Directions Dispensed Refills Start Date End Date Stat us iopamidoL (ISOVUE-370) 370 mg iodine /mL (76 %) injection 100 mL 100 mL, intravenous, Once in imaging, Starting on Fri09/01/24 at 1525, For 1 dose 09/01/2024 09/01/2024 completed sodium chloride 0.9 % intravenous solution 50 mL 50 mL, intravenous, Once in imaging, Starting on Fri09/01/24 at 1525, For 1 dose 09/01/2024 09/01/2024 completed sodium chloride 0.9 % flush 10 mL 10 mL, intravenous, Once, On Fri09/01/24 at 1545, For 1 dose 09/01/2024 09/01/2024 completed omeprazole (PriLOSEC) 20 MG capsule Take 1 capsule (20 mg total) by mouth daily. 03/22/2024 active Problems Problem Status Onset Date Problem Type Date of Resolution Source Aortic root dilatation (CMS/HCC) active EncounterDiagnosisAct CT_THSFRAN Aneurysm of ascending aorta without rupture (HCC) active EncounterDiagnosisAct CTTHNE MG Mixed hyperlipidemia active EncounterDiagnosisA ct CTTHNEMG
--- OUTSIDE RECORDS SUMMARY | 2024-09-06 06:37 | XMS_ITS | Encounter Summary ---
Author Organization [facility] Address [address] [place] [address] Care Team Providers Care Geophysical Prospecting Permit Agent Name Role Phone Diane Polanco MD Primary Care Provider [phone] Encounter Details Date Type Department Care Team (Late st Contact Info) Description 08/17/2024 Telephone Cardiothoracic Surgery - [facility] [address] [place] [address] Gala Giordano MA Social History Tobacco Use Types Packs/Day Years [...] on file documented as of this encounter Progress Notes * Gala Giordano MA - 08/17/2024 1:43 PM EST [facility] cert number : [id number] FOR CTA CHEST ON 09/01/24. 08/17/2024-10/15/2024 CALLED ALFA @140PM documented in this encounter Plan of Treatment Scheduled Procedures Name Priority Associated Diagnoses Date/Ti me LEFT HEART CATH / CORONARY ANGIOGRAPHY CVD (cardiovascular disease) documented as of this encounter Visit Diagnoses Not on filedocumented in this encounter Care Teams Geophysical Prospecting Permit Agent Relationship Specialty Start Date End Date Diane Polanco MD [address] [place] [address] PCP - General 04/07/24 documented as of this encounter
--- OUTSIDE RECORDS SUMMARY | 2024-09-06 06:37 | XMS_ITS | Clinical Summary ---
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 0 03/22/2024 Active rosuvastatin (CRESTOR) tablet 20 mg Take 1 tablet (20 mg total) by mouth daily. 0 02/11/2024 Active Family History Medical History Relation Name Comments Aneurysm Father Supra renal Aor tic Aneurysm repair in 55 Lung cancer Mother Kidney failure Sister 1 Renal Transpl ant Kidney failure Sister 2 Renal transpa lnt Relation Name Status Comments Brother Alive Father Mother Sister 1 Alive Sister 2 Alive Social History Tobacco Use Types Packs/Day Years Used Date Smoking Tobacco: Never Smokeless Tobacco: Never Tobacco Cessation:Counseling Given: Not Answered Alcohol Use Standard Drinks/Week Comments Yes 3 (1 standard drink = 0.6 oz pur e alcohol) 7-8 per week Sex and Gender Information Value Date Recorded Sex Assigned at Male 04/15/2024 9:42 AM EDT Gender Identity Not on file Sexual Orientation Not on file Job Start Date Occupation Industry Not on file Not on file Not on file Last Filed Vital Signs Vital Sign Reading Time Taken Comments Blood Pressure 120/88 04/15/2024 10:13 AM EDT Pulse 60 04/15/2024 10:13 AM EDT Temperature - - Respiratory Rate - - Oxygen Saturation 99% 04/15/2024 10:13 AM EDT Inhaled Oxygen Concentration - - Weight 107.5 kg (237 lb) 04/15/2024 10:13 AM EDT Height 190.5 cm (6' 3 ) 04/15/2024 10:13 AM EDT Body Mass Index 29.62 04/15/2024 10:13 AM EDT Plan of Treatment Health Maintenance Due Date Last Done Comments Hepatitis B Vaccines (1 of 3 - 3-dose series) 1968 Hepatitis C Screening 1968 COVID-19 Vaccine (#1) 05/21/1969 Depression Screening 1980 BMI Counseling 1986 Preventative Health Evaluation 1986 DTap / Tdap / Td (1 - Tdap) 11/20/1987 Colon Cancer Screening (Colonoscopy) 2013 Shingrix-Zoster Vaccine (1 of 2) 2018 Influenza Vaccine (#1) 2024 Pneumococcal Vaccine Aged Out No long er eligible based on patient's age to complete this topic RSV Ped < 20 months Aged Out No longe r eligible based on patient's age to complete this topic Care Teams Continuous Mining Machine Coal Miner Relationship Specialty Start Date End Date Diane Polanco MD [address] [place] [address] PCP - General Digital Retoucher 04/07/24
--- OUTSIDE RECORDS SUMMARY | 2024-09-06 06:37 | XMS_ITS | Encounter Summary ---
Author Organization [facility] Address [address] [place] [address] Care Team Providers Care Cardiac Cath Tech Name Role Phone Diane Polanco MD Primary Care Provider [phone] Reason for Referral * Consultation (Urgent) - Closed Specialty Diagnoses / Procedures Referred By Contac t Referred To Contact Cardiothoracic Surgery Diagnoses Mixed hyperlipidemia Aneurysm of ascending aorta without rupture (CMS/HCC) Elevated blood pressure reading Victoriano Hanley MD [address] [place] [address] Kit Richard MD [address] [place] [address] Referral ID Status Reason Start Date Expiration Date V isits Requested Visits Authorized [id number] Closed Specialty Services Required 08/10/2024 08/10/2025 1 1 Encounter Details Date Type Department Care Team (Late st Contact Info) Description 08/10/2024 11:15 AM EST Office Visit [facility] - [address] [place] [id number] Victoriano Hanley MD [address] [place] [address] Mixed hyperlipidemia (Primary Dx); Aneurysm of ascending aorta without rupture (CMS/HCC); [...] Sign Reading Time Taken Comments Blood Pressure 140/100 08/10/2024 11:20 AM EST Pulse 97 08/10/2024 11:20 AM EST Temperature - - Respiratory Rate - - Oxygen Saturation 96% 08/10/2024 11:20 AM EST Inhaled Oxygen Concentration - - Weight 110 kg (243 lb) 08/10/2024 11:20 AM EST Height 190.5 cm (6' 3 ) 08/10/2024 11:20 AM EST Body Mass Index 30.37 08/10/2024 11:20 AM EST documented in this encounter Patient Instructions * Attachments The following attachments cannot be sent through Care Everywhere. * Aneurysm: Thoracic Aortic (Arabic) documented in this encounter Progress Notes * Victoriano Hanley MD - 08/10/2024 11:15 AM EST DO: Maintain a healthy blood pressure (ideally, at or below 130/80). Your doctor can help you understand the blood pressure numbers that are right for you. Keep your body at a healthy weight. Get mild to moderate physical activity regularly (walking, biking, swimming, dancing, light joggingor stair climbing). Eat a heart-healthy diet (foods low in sodium, fat and cholesterol). Take antibiotics before a dental procedure or any invasive procedure if you've had a surgical repair of your aortic aneurysm. Follow up with your doctor regularly to monitor your aneurysm and overall health. Have all first-degree relatives (parents, siblings and adult children) screened by their doctors for a thoracic aortic aneurysm. Avoid a class of antibiotics known as fluoroquinolones: Cipro (ciprofloxacin), Levaquin (levofloxacin), Factive (gemifloxacin) and Avelox (moxifloxacin). These medications may increase the risk of aortic dissections or ruptures. DON'T: Push, pull, bear down or lift anything heavier than 30 pounds (or 10 pounds for patients recoveringfrom surgery). Get a tattoo or body piercing. Smoke (or be exposed to secondhand smoke) or use any other tobacco products. Shovel snow, chop wood, dig earth or use a sledgehammer or citrix lead. Take illicit drugs. Go on amusement park rides. Participate in rigorous, competitive or contact sports. Use a shotgun that has recoil energy of more than 45 foot-pounds (a specialist can recommend products to reduce recoil energy). Use a bow that has draw weight of more than 45 pounds (a specialist can recommend products to reduce draw weight). * Victoriano Hanley MD - 08/10/2024 11:15 AM EST Images from the original note were not included. [facility], [facility] SUBJECTIVE: The patient comes in for a follow-up hyperlipidemia, family history of aortic aneurysm and aortic aneurysm rupture in his father has significant history of snoring has been diagnosed withdescending thoracic aortic aneurysm. OBJECTIVE: Vitals: height is 1.905 m (75 ) and weight is 110 kg (243 lb). His blood pressure is 140/100 (abnormal) andhis pulse is 97. His oxygen saturation is 96%. Body mass index is 30.37 kg/m??. Review of system: ?Cardiovascular ?Neurological ? - + [x] [] Chest Discomfort [x] [] Palpitations [x] [] Fainting [x] [] High Blood Pressure [] [] Shortness of Breath [] [x] Cholesterol [x] [] Orthopnea or PND [x] [] Edema - + [x] [] Numbness [x] [] Visual Disturbance [x] [] Weakness [x] [] Vertigo [x] [] Sleep Disorder [x] [] Speech [x] [] Seizure - + [] [] Impotence [] [] Urinary Frequency [] [] Incontinence [] [] Menstrual Irregularity [] [] Bloody Urine [] [] Painful Urination ?Respiratory ?Musculoskeletal ?GI - + [x] [] Cough [x] [] Hemoptysis [x] [] Difficulty Breathing [x] [] Pleuritic Pain [x] [] Fever [x] [] Wheezing - + [x] [] Swollen or Painful Joints [x] [] Claudication [x] [] Edema [x] [] Myalgia [x] [] Injury - + [] [] Indigestion [] [] Pain [] [] Bloody Stools [] [] Constipation [] [] Diarrhea ?Eyes ?E-N-T ?Endocrine - + [x] [] Blurred Vision [x] [] Double Vision [x] [] Amaurosis - + [x] [] Nose Bleed [x] [] Difficulty Swallowing [x] [] Difficulty Hearing [x] [] Tinnitus - + [] [] Diabetes [] [] Weight Gain [] [] Weight Loss [] [] Hyperthyroid ?Head ?Neck ?Skin - + [x] [] Jaw Pain [x] [] Headache [x] [] Injury - + [x] [] Swelling [x] [] Pain - + [] [] Rash [] [] Itching [] [] Bruising ?Psychiatric ?Allergies - + [x] [] Depression [x] [] Anxiety - + [] [] Environmental [] [] Drug [] No Change since 06/13/2014 Comments: [] Past Medical History Reviewed: Past Medical History: Diagnosis Date HLD (hyperlipidemia) DX:HLD (hyperlipidemia) Thoracic aortic aneurysm (CMS/HCC) DX:Thoracic aortic aneurysm (HCC) Past Surgical History Reviewed: Past Surgical History: Procedure Laterality Date CYST REMOVAL PROCEDURE:CYST REMOVAL VASECTOMY PROCEDURE:VASECTOMY Family / Social History Reviewed: Family History Problem Relation Name Age of Onset Lung cancer Mother Aneurysm Father Supra renal Aortic Aneurysm repair in 57 Kidney failure Sister Renal Transplant Kidney failure Sister Renal transpalnt Social History Socioeconomic History Marital status: Spouse name: Not on file Number of children: Not on file Years of education: Not on file Highest education level: Not on file Occupational History Not on file Tobacco Use Smoking status: Never Smokeless tobacco: Never Substance and Sexual Activity Alcohol use: Yes Alcohol/week: 3.0 - 4.0 standard drinks of alcohol Drug use: Not Currently Sexual activity: Not on file Other Topics Concern Not on file Social History Narrative Not on file Allergies Reviewed: No Known Allergies Scheduled Medications Reviewed: Current Outpatient Medications Medication Sig Dispense Refill omeprazole (PriLOSEC) [address] capsule Take 1 capsule (20 mg total) by mouth 1 (one) time each day. rosuvastatin (CRESTOR) 20 mg tablet Take 1 tablet (20 mg total) by mouth 1 (one) time each day. No current facility-administered medications for this visit. Physical Exam: *Eyes Arcus Negative ?Xanthelasma Negative ?Lid Lag Negative ?Exopthalmus Negative ?Conjuntivae Normal ?Fundi Not examined Comments: *Ears, Nose, Mouth and Throat ?Teeth/Dentures Normal ?Mucosa: Pallor Negative ?Cyanosis Negative Comments: *Neck ?Thyroid [x] Normal [] Enlarged []Nodules ?Jugular Veins Normal Comments: *Respiratory ?A-P Diam Normal Effort: [x] Normal Lungs Clear to auscultation and percussion Comments: *Cardiovascular ?Palpation PMI Normal Lift Negative Thrill Negative ?Auscultation Rhythm [x] Regular Murmur Negative [] S1 Normal S2 Normal S3 Negative S4 Negative Click Negative Examination of ?Carotids (R) Normal (L) Normal[] Bruits None ?Abdominal aorta Normal [] Bruits Negative [] ?Femoral (R) 4/4 (L) 4/4 Bruits Negative ?Radial arteries (R) 4/4 (L) 4/4 ?Pedal pulses DP (R) 4/4 (L) 4/4 PT (R) 4/4 (L) 4/4 ?Edema Negative Varicosities Negative Comments: *Gastrointestinal ?Examination of ?Abdomen Soft, active bowel sounds, nontender ?Liver Not palpable Spleen Not palpable ?[] Obtain Stool sample (Patients who are considered for thrombolytic and anticoagulant therapy) Comments: *Musculoskeletal ?Back: Kyphosis Negative [] Scoliosis Negative ?Gait Normal Tendons Normal ?Muscle Strength Normal Comments: *Extremities ?Nails Normal Clubbing Negative Lesions Negative Cyanosis Negative Edema Negative Comments: *Skin ?Stasis dermatitis Negative Xanthomas Negative Ulcers Negative Comments: *Neurological ?Orientation X3 DTR Normal Gait Normal ?Mood Normal [] Strength Normal Comments: Labs Reviewed: Diagnostics Data Reviewed: CTA ABDOMINAL AORTA AND BILAT ILIOFEMORAL RUNOFF CTA AORTOILIOFEMORAL RUNOFF HISTORY: family history of Abd aortic aneurysm. History of thoracic aortic ectasia. TECHNIQUE: Helical CTA images of the abdomen are obtained from the dome of the liver to soles of the feet during the intravenous administration of 125 mL nonionic [id number] contrast with 1.5, 2 and 5 mm axial and coronal and sagittal MIP reconstructions at 3 mm and axial MIP reconstructions 3 mm. Repeat imaging of the calves after a brief delay was performed with 2 mm and 5 mm axial images as well as 3 mm axial and 3 mm coronal and sagittal MIP reformatted images. Automated exposure control (AEC) adjustment of the mA and/or KVP has been used according to patient's size for the purpose of dose reduction. Supervised, concurrent 3D Volume rendered reconstructions are obtained at a separate, in dependent workstation. COMPARISON: None. FINDINGS: SOFT TISSUE EVALUATION: ABDOMEN: Evaluation of the lung bases demonstrated no focal consolidation, pleural or pericardial effusion. Evaluation of the solid abdominal organs is limited by the early phase of contrast administration. The liver is normal in size and shape and appears essentially homogeneous in attenuation. There is no intra- or extrahepatic biliary dilatation. There is no perihepatic or pericholecystic fluid. There is a small amount of dependent density in the gallbladder, compatible with cholelithiasis. Spleen is also normal in size and shape and appears heterogeneous in attenuation, due to the early phase of contrast administration. The adrenal glands were normal in size and configuration. The pancreas is normal in size and configuration. The kidneys enhance symmetrically with contrast. There is no hydronephrosis or perinephric fluid. No focal cortical lesion is identified. There is no retroperitoneal or mesenteric adenopathy. There is no evidence for free air or free fluid throughout the abdomen. Evaluation of the GI tract is limited without oral contrast. There is a periampullary duodenal diverticulum. There are no dilated loops of small or large bowel. There is no evidence for pericolonic or perienteric inflammatory change. A normal appendix is seen. PELVIS: The urinary bladder is unremarkable. There is no pelvis or inguinal adenopathy. There are multiple pelvic phleboliths. LOWER EXTREMITIES: There is a symmetric appearance of the lower extremity musculature. OSSEOUS STRUCTURES: Osseous structures appear unremarkable for age. ANGIOGRAPHIC EVALUATION (INCLUDING EVALUATION OF 3D IMAGING): ABDOMEN The descending thoracic aorta tapers normally through the diaphragmatic hiatus. There is a downgoing celiac with moderate proximal stenosis which may be due to median arcuate ligament compression. There is poststenotic dilatation. 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 The superior mesenteric artery ap pears widely patent. There is a replaced common hepatic to the superior mesenteric. The inferior mesenteric artery is widely patent and demonstrates conventional branching anatomy. There are bilateral single renal arteries. Both appear widely patent. The abdominal aorta tapers normally. The common iliac arteries are widely patent. PELVIS: The internal iliac arteries are patent bilaterally. The external iliac arteries are patent bilaterally. RIGHT LOWER EXTREMITY: The common femoral artery appears patent. The profunda femoris artery appears patent. The superficial femoral artery appears patent. The popliteal artery appears patent. The tibioperoneal trunk appears patent. The anterior tibial artery appear patent and continues as the dorsalis pedis. The posterior tibial artery appears patent. There is mild atherosclerotic change present distally within the posterior tibial artery. The peroneal artery is patent but also demonstrates mild atherosclerotic changes.. A partial pedal arch is identified. LEFT LOWER EXTREMITY: The common femoral artery appears patent. The profunda femoris artery appears patent. The superficial femoral artery appears patent. The popliteal artery appears patent. The tibioperoneal trunk appears patent. The anterior tibial artery appear patent and continues as the dorsalis pedis. The posterior tibial artery appears patent. There is mild atherosclerotic change present distally within the posterior tibial artery. The peroneal artery appears patent. A partial pedal arch is identified. IMPRESSION: No abdominal aortic, peripheral or visceral artery aneurysms are identified. 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 There is a replaced common hepatic to the superior mesenteric which is widely patent. Mild atherosclerotic changes are present in the tibial vessels particularly the distal posterior tibial artery on each side but there is essentially 3 vessel runoff bilaterally. There is no aortoiliac inflow disease or significant peripheral arterial disease present. Cholelithiasis. Report reviewed and signed by : Dr. Alf Ascencio on 05/25/2024 1:09 PM. Workstation Name - [id number] Not Vldtd No results found for this or any previous visit (from the past 4464 hour(s)). CTA Review: Date 05/10/24: Aortic root 4.9 cm ascending aorta: 4.7 cm, proximal arch 3.9 cm, descending aorta 3.0 cm, aorta at from 2.5 cm. Date: 10/24/2023 Ao root: 4.5 cm Ascending Ao: 4.4 cm Transverse Ao: 4.3 cm Date: 11/04/2022 Ascending Ao: 4.5 cm Transverse Ao: 4.3 cm Date 03/25/2022 Ascending Ao: 4.5 cm Transverse Ao: 4.3 cm Ascending Aortic Aneurysm with variable size discrepancies due to different CT scanners and modalities with strong family hx of aneurysms. Genetic testing for Comprehensive Aortopathy panel was non diagnostic and his sisters have been evaluated. Echo: May 20, 2024 Left ventricle is mildly dilated with LVEF of 55 to 65%. Trace amount of aortic valve regurgitation. The aortic root is dilated at 5.0 cm and ascending aorta is dilated measuring up to 4.5 cm. CTA:05/25/24 No abdominal aortic, peripheral or visceral artery aneurysms are identified. 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 There is a replaced common hepatic to the superior mesenteric which is widely patent. Mild atherosclerotic changes are present in the tibial vessels particularly the distal posterior tibial artery on each side but there is essentially 3 vessel runoff bilaterally. There is no aortoiliac inflow disease or significant peripheral arterial disease present. Cholelithiasis. Tests Ordered: [ x] Chem-18, lipid profile, glycohemoglobin, TSH. [ x] CTA chest. Assessment: Patient is a 53 y.o. male who has past medical history significant for hyperlipidemia, family history of aortic aneurysm and aortic aneurysm rupture in his father has significant history of snoring has been diagnosed with ascending thoracic aorta /aortic root aneurysm of 4.9 cm remains hemodynamically stable, clinically appears euvolemic and has no symptoms for angina or CHF. He has elevated blood pressure in my office. Plan: Patient will be continued on current medications, he was advised to monitor his blood pressure at least 3 times a week and keep a diary and if blood pressure persistently remains elevated above 20 over 80 mmHg he must be considered for antihypertensive therapy in view of patient's aortic aneurysm. Patient was referred for CT surgery evaluation referral sent to Dr. Richard and also texted him for him to be seen [facility]. Patient was provided written material regarding aortic aneurysm and do's and don'ts. All questions were answered to patient patient's satisfaction. CTA suggested 6 months after last study which appears to be in October 2024 or earlier if deemed necessary by Dr. Kit Richard. Risk stratification, lifestyle modifications were discussed and recommended. Patient was advised to reduce caloric intake, observe portion controlled strictly, avoid sodium andsalt intake, exercise a regular basis to reduce weight for optimization of BMI for cardiovascular preventive purposes. Patient was encouraged to increase high-fiber diet with increase intake of fruits and vegetables, olive oil, beans, nuts, legumes as tolerated unless contraindicated in in the dietand avoid processed food/carbonated beverages for preventive purposes. Patient was advised to call us to check on his blood work-up or other diagnostic studies if not hear back from us to discuss the results and findings and plan of care. Follow-up in 3 months or earlier if patient develops new symptoms or current symptoms get worse. Victoriano Hanley MD., FACC., FASNC., FCPS., FACP. [facility], [facility] [phone]. 10:50 AM EST08/10/2024 This dictation was performed using voice recognition software. Word substitution may have occurred and may have gone unnoticed and uncorrected. documented in this encounter Plan of Treatment Scheduled Orders Name Type Priority Associated Diagnoses Orde r Schedule ECG 12 lead ECG Routine Mixed hyperlipidemia Aneurysm of ascending aorta without rupture (CMS/HCC) Elevated blood pressure reading Ordered: 08/10/2024 Scheduled Procedures Name Priority Associated Diagnoses Date/Ti me LEFT HEART CATH / CORONARY ANGIOGRAPHY CVD (cardiovascular disease) Scheduled Referrals Name Type Priority Associated Diagnoses Order Schedule Ambulatory referral to Cardiothoracic Surgery Outpatient Referral Routine Mixed hyperlipidemia Aneurysm of ascending aorta without rupture (CMS/HCC) Elevated blood pressure reading 1 Occurrences starting 08/10/2024 until 08/10/2025 documented as of this encounter Visit Diagnoses Diagnosis Mixed hyperlipidemia- Primary Aneurysm of ascending aorta without rupture (CMS/HCC) Elevated blood pressure reading Elevated blood pressure reading without diagnosis of hypertension documented in this encounter Care Teams Cardiac Cath Tech Relationship Specialty Start Date End Date Diane Polanco MD [address] [place] [address] PCP - General 04/07/24 documented as of this encounter
--- OUTSIDE RECORDS SUMMARY | 2024-09-06 06:37 | XMS_ITS | Clinical Summary ---
Author Organization [facility] ter Address [address] [place] [address] Phone Care Team Providers Care Service Captain Name Role Phone Diane Polanco MD Primary Care Provider [phone] Allergies No known active allergies Medications Medication Sig Dispensed Refills Start Date End Date Status rosuvastatin (CRESTOR) 20 mg tablet Take 1 tablet (20 mg total) by mouth 1 (one) time each day. 02/11/2024 Active omeprazole (PriLOSEC) [address] capsule Take 1 capsule (20 mg total) by mouth 1 (one) time each day. 03/22/2024 Active Encounters Date Type Department Care Team Description 09/01/2024 2:12 PM EST - 09/01/2024 11:59 PM EST Hospital Encounter [facility] CT Scan [address] [place] [address] Aortic root dilatation (CMS/HCC) Discharge Disposition: Home or Self Care 08/17/2024 Telephone Cardiothoracic Surgery [facility] [address] [place] [address] Gala Giordano [place] 08/12/2024 1:30 PM EST Consult Cardiothoracic Surgery [facility] [address] [place] [address] Kit Gonzalez MD Mixed hyperlipidemia; Aneurysm of ascending aorta without rupture (CMS/HCC); Elevated blood pressure reading 08/10/2024 11:15 AM EST Office Visit [facility] [place] [facility] [address] [place] [address] Victoriano Hanley MD Mixed hyperlipidemia (Primary Dx); Aneurysm of ascending aorta without rupture (CMS/HCC); Elevated blood pressure reading from Last 3 Months Surgical History Surgery Date Site/Laterality Comments CYST REMOVAL PROCEDURE:CYST REMOVAL VASECTOMY PROCEDURE:VASECTOMY Medical History Medical History Date Comments Thoracic aortic aneurysm (CMS/HCC) DX:Thoracic aortic aneurysm (HCC) HLD (hyperlipidemia) DX:HLD (hyp erlipidemia) Family History Medical History Relation Name Comments [...] file Not on file Not on file Obstetrics History Last Filed Vital Signs Vital Sign Reading [...] Mass Index 29.37 08/12/2024 1:29 PM EST Plan of Treatment Scheduled Procedures Name Priority Associated Diagnoses Date/Ti me LEFT HEART CATH / CORONARY ANGIOGRAPHY CVD (cardiovascular disease) Health Maintenance Due Date Last Done Comments DTaP,Tdap,and Td Vaccines (1 - Tdap) 11/20/1987 Hepatitis A Vaccines (1 of 2 - Risk 2-dose series) 11/20/1987 Hepatitis B Vaccines (1 of 3 - 19+ 3-dose series) 11/20/1987 Zoster Vaccines (1 of 2) 2018 Cholesterol Screening (Lipid Panel) 09/09/2023 Colorectal Cancer Screening: Colonoscopy 09/09/2023 Depression Screening 09/09/2023 HIV Screening 09/09/2023 Hepatitis C Screening 09/09/2023 Social Influencers of Health Screening 09/09/2023 COVID-19 Vaccine ( - 2023-2 5 season) 2024 Influenza Vaccine (#1) 2024 HIB Vaccines Aged Out No longer eligi ble based on patient's age to complete this topic HPV Vaccines Aged Out No longer eligi ble based on patient's age to complete this topic IPV Vaccines Aged Out No longer eligi ble based on patient's age to complete this topic MMR Vaccines Aged Out No longer eligi ble based on patient's age to complete this topic Meningococcal ACWY Vaccine Aged Out N o longer eligible based on patient's age to complete this topic Pneumococcal Vaccine: Pediat rics (0 to 5 Years) and At-Risk Patients (6 to 64 Years) Aged Out No longer eligible b ased on patient's age to complete this topic RSV Immunization Patients Un concepción 20 months Aged Out No longer eligible b ased on patient's age to complete this topic Varicella Vaccines Aged Out No longer eligible based on patient's age to complete this topic Procedures Procedure Name Priority Date/Time Associated Diagnosis Comments CT ANGIO CHEST WO AND/OR W CONTRAST Routine 09/01/2024 3:28 PM EST Aortic root dilatation (CMS/HCC) from Last 3 Months Results * CT Angio Chest wo and/or w Contrast (09/01/2024 3:28 PM EST) Anatomical Region Laterality Modality Body Computed Tomogra phy 09/01/2024 6:10 PM EST Impressions 09/01/2024 7:01 PM EST 1. Fusiform aneurysm of the aortic root (sinus of Valsalva measures 50.1 mm in diameter) and proximal ascending thoracic aorta (measuring up to 50.7 mm in diameter). The remaining thoracic aorta is normal in course and caliber. There is no thoracic aortic intramural hematoma or dissection. The aortic valve is tricuspid with no valvular thickening or calcifications. 2. Widely patent coronary arteries arising from the right and left coronary cusps. CAD-RADS category 0. 3. Normal appearance and opacification of the left heart. CAD-RADS? 2.0: 2021 Coronary Artery Disease-Reporting and Data System An Expert Consensus Document of the Society of Cardiovascular Computed Tomography (SCCT), the [place] [employer] Cardiology (ACC), the [place] College of Radiology (ACR), and the [place] Society of Cardiovascular Imaging (NASCI) Category ?Stenosis ?Interpretation ? CAD-RADS 0 ??0% ?Absence of CAD CAD-RADS 1 ??1?24% (Minimal stenosis or plaque with no stenosis) ?Minimal non-obstructive CAD CAD-RADS 2 ??25?49% (Mild stenosis) ?Mild non-obstructive CAD CAD-RADS 3 ??50?69% (Moderate stenosis) ?Moderate stenosis CAD-RADS 4 ??A - 70?99% stenosis or ?Severe stenosis ?B - Left main ?50% or 3- vessel obstructive (?70%) disease CAD-RADS 5 ??100% (Total occlusion) ?Total coronary occlusion or sub-total occlusion CAD-RADS N ??Non-diagnostic study ?Obstructive CAD cannot be excluded J Cardiovasc Comput Tomogr. 2021; 16:536-557. Report reviewed and signed by : Dr. Davon Quijano on 09/01/2024 7:01 PM. Workstation Name - [id number] -------- FINAL REPORT -------- Dictated By: Davon Quijano Dictated Date: 09/01/2024 18:10 ET Assigned Physician: Davon Quijano Reviewed and Electronically Signed By: Davon Quijano Signed Date: 09/01/2024 19:01 ET Workstation ID: [id number] Transcribed By: Self Edit Transcribed Date: 09/01/2024 18:10 ET Narrative 09/01/2024 7:[address] ANGIOGRAM CHEST DATE OF SERVICE: 09/01/2024 2:55 PM. HISTORY: SERVANDO HIDALGO is a 53 years-old Male with aortic root and ascending thoracic aortic aneurysm. Preoperative planning. COMPARISON: CTA abdomen/pelvis with runoff 05/25/2024. TECHNIQUE: Noncontrast axial imaging of the chest was performed at 5 mm intervals with coronal and sagittal reconstructions. Following the uneventful intravenous administration of iodinated contrast, repeat postcontrast axial imaging of the chest was performed at 1 mm intervals with prospective EKG gating. Postcontrast coronal and sagittal reconstructions were obtained. Contrast: 100 mL IOPAMIDOL 370 MG IODINE/ML (76 %) INTRAVENOUS SOLUTION Route: intravenous. All CT imaging was performed utilizing a combination of automated exposure control, adjustment of the mA and/or kV according to patient size and use of iterative reconstruction techniques to achieve dose as low as reasonably achievable. CT Dose Summary Up-to-date CT equipment and radiation dose reduction techniques were employed. CTDIvol: .6 - 16.4 mGy. DLP: 780 mGy-cm. These indicators are not patient dose, but values generated from the CT scanner acquisition factors. FINDINGS: Noncontrast imaging does not demonstrate any thoracic aortic intramural hematoma. There is fusiform aneurysm of the aortic root and proximal ascending thoracic aorta without dissection. The aortic annulus measures 29.7 mm in diameter. The sinus of Valsalva measures 50.1 mm in diameter. The sinotubular junction measures 39.1 mm in diameter. The aortic valve is tricuspid with no valvular thickening or calcifications. The proximal ascending thoracic aorta just above the sinotubular junction measures 50.7 x 43.1 mm in transverse dimensions and the at the level of the main pulmonary artery the ascending thoracic aorta measures 48.8 x 45 mm in transverse dimensions. The distal most ascending thoracic aorta is normal in caliber as is the aortic arch with type I configuration with variant anatomy of bovine origin of the left common carotid artery as well as direct origin of the left vertebral artery. The proximal great vessels are widely patent. The descending thoracic aorta is normal in course and caliber (measuring 29.1 mm in diameter at the level of the main pulmonary artery). The suprarenal abdominal aorta is normal in caliber with redemonstration of median arcuate ligament anatomy of the celiac origin and a replaced proper hepatic artery. The heart is normal in size and configuration with normal appearance and opacification of the left heart. The coronary arteries arise from the right and left coronary cusps and are widely patent with right dominance. There are no significant coronary artery calcifications. The pulmonary arteries are normal in caliber and patent with no proximal pulmonary embolism. The pulmonary veins are grossly unremarkable. There is trace physiologic pericardial effusion. There is no mediastinal mass or adenopathy. Lungs are clear. Upper abdominal structures are normal. Osseous structures are intact with degenerative changes in the thoracic spine. Soft tissues are normal. Procedure Note Davon Quijano MD - 09/01/2024 CT ANGIOGRAM CHEST DATE OF SERVICE: 09/01/2024 2:55 PM. HISTORY: SERVANDO HIDALGO is a 53 years-old Male with aortic root andascending thoracic aortic aneurysm. Preoperative planning. COMPARISON: CTA abdomen/pelvis with runoff 05/25/2024. TECHNIQUE: Noncontrast axial imaging of the chest was performed at 5 mmintervals with coronal and sagittal reconstructions. Following theuneventful intravenous administration of iodinated contrast, repeatpostcontrast axial imaging of the chest was performed at 1 mm intervalswith prospective EKG gating. Postcontrast coronal and sagittalreconstructions were obtained. Contrast: 100 mL IOPAMIDOL 370 MG IODINE/ML (76 %) INTRAVENOUS SOLUTIONRoute: intravenous. All CT imaging was performed utilizing a combination of automated exposurecontrol, adjustment of the mA and/or kV according to patient size and useof iterative reconstruction techniques to achieve dose as low asreasonably achievable. CT Dose Summary Up-to-date CT equipment and radiation dose reduction techniques wereemployed. CTDIvol: .6 - 16.4 mGy. DLP: 780 mGy-cm. These indicators are not patient dose, but values generated from the CTscanner acquisition factors. FINDINGS: Noncontrast imaging does not demonstrate any thoracic aorticintramural hematoma. There is fusiform aneurysm of the aortic root and proximal ascendingthoracic aorta without dissection. The aortic annulus measures 29.7 mm indiameter. The sinus of Valsalva measures 50.1 mm in diameter. Thesinotubular junction measures 39.1 mm in diameter. The aortic valve istricuspid with no valvular thickening or calcifications. The proximal ascending thoracic aorta just above the sinotubular junctionmeasures 50.7 x 43.1 mm in transverse dimensions and the at the level ofthe main pulmonary artery the ascending thoracic aorta measures 48.8 x 45mm in transverse dimensions. The distal most ascending thoracic aorta isnormal in caliber as is the aortic arch with type I configuration withvariant anatomy of bovine origin of the left common carotid artery as wellas direct origin of the left vertebral artery. The proximal great vesselsare widely patent. The descending thoracic aorta is normal in course and caliber (mokwdjyki21.1 mm in diameter at the level of the main pulmonary artery). Thesuprarenal abdominal aorta is normal in caliber with redemonstration ofmedian arcuate ligament anatomy of the celiac origin and a replaced properhepatic artery. The heart is normal in size and configuration with normal appearance andopacification of the left heart. The coronary arteries arise from theright and left coronary cusps and are widely patent with right dominance.There are no significant coronary artery calcifications. The pulmonaryarteries are normal in caliber and patent with no proximal pulmonaryembolism. The pulmonary veins are grossly unremarkable. There is trace physiologic pericardial effusion. There is no mediastinalmass or adenopathy. Lungs are clear. Upper abdominal structures arenormal. Osseous structures are intact with degenerative changes in thethoracic spine. Soft tissues are normal. IMPRESSION: 1. Fusiform aneurysm of the aortic root (sinus of Valsalva measures 50.1mm in diameter) and proximal ascending thoracic aorta (measuring up to50.7 mm in diameter). The remaining thoracic aorta is normal in course andcaliber. There is no thoracic aortic intramural hematoma or dissection.The aortic valve is tricuspid with no valvular thickening orcalcifications. 2. Widely patent coronary arteries arising from the right and leftcoronary cusps. CAD-RADS category 0. 3. Normal appearance and opacification of the left heart. CAD-RADS? 2.0: 202 Coronary Artery Disease-Reporting and Data System An Expert Consensus Document of the Society of Cardiovascular ComputedTomography (SCCT), the [place] [employer] Cardiology (ACC), the AmericanCollege of Radiology (ACR), and the [place] Society ofCardiovascular Imaging (NASCI) Category Stenosis Interpretation CAD-RADS 0 0% Absence of CAD CAD-RADS 1 1?24% (Minimal stenosis or plaque with no stenosis) Minimalnon- obstructive CAD CAD-RADS 2 25?49% (Mild stenosis) Mild non-obstructive CAD CAD-RADS 3 50?69% (Moderate stenosis) Moderate stenosis CAD-RADS 4 A - 70?99% stenosis or Severe stenosis B - Left main ?50% or 3- vessel obstructive (?70%) disease CAD-RADS 5 100% (Total occlusion) Total coronary occlusionor sub-total occlusion CAD-RADS N Non-diagnostic study Obstructive CAD cannot beexcluded J Cardiovasc Comput Tomogr. 2021; 16:536-557. Report reviewed and signed by : Dr. Davon Quijano on 09/01/2024 7:01 PM.Workstation Name - [id number] -------- FINAL REPORT -------- Dictated By: Davon Quijano Dictated Date: 09/01/2024 18:10 ET Assigned Physician: Davon Quijano Reviewed and Electronically Signed By: Davon Quijano Signed Date: 09/01/2024 19:01 ET Workstation ID: [id number] Transcribed By: Self Edit Transcribed Date: 09/01/2024 18:10 ET Kit Gonzalez MD IMG CT PROCEDURE S from Last 3 Months Care Teams Service Captain Relationship Specialty Start Date End Date Diane Polanco MD [address] [place] [address] PCP - General 04/07/24
--- OUTSIDE RECORDS SUMMARY | 2024-09-06 06:37 | XMS_ITS | Encounter Summary ---
Author Organization [facility] Address [address] [place] [address] Care Team Providers Care Material Dispatcher Name Role Phone Diane Polanco MD Primary Care Provider [phone] Reason for Referral * Imaging (Routine) - Closed Specialty Diagnoses / Procedures Referred By Contac t Referred To Contact Radiology Diagnoses Aortic root dilatation (CMS/HCC) Procedures CT Angio Chest wo and/or w Contrast Kit Gonzalez MD [address] [place] [address] [facility] [address] Referral ID Status Reason Start Date Expiration Date Visits Re quested Visits Authorized [id number] Closed 08/17/2024 10/15/2024 1 1 Reason for Visit * Imaging (Routine) - Closed Specialty Diagnoses / Procedures Referred By Contac t Referred To Contact Radiology Diagnoses Aortic root dilatation (CMS/HCC) Procedures CT Angio Chest wo and/or w Contrast Kit Gonzalez MD [address] [place] [address] [place] [address] [facility] [address] Referral ID Status Reason Start Date Expiration Date Visits Re quested Visits Authorized [id number] Closed 08/17/2024 10/15/2024 1 1 Encounter Details Date Type Department Care Team (Latest Contact Info) Description 09/01/2024 2:12 PM EST - 09/01/2024 11:59 PM EST Hospital Encounter [facility] CT Scan [address] [place] [address] Aortic root dilatation (CMS/HCC) Discharge Disposition: Home or Self Care Social History Tobacco Use Types Packs/Day Years [...] on file documented as of this encounter Medications at Time of Discharge Medication Sig Dispensed Refills Start Date End Date omeprazole (PriLOSEC) [address] capsule Take 1 capsule (20 mg total) by mouth 1 (one) time each day. 03/22/2024 rosuvastatin (CRESTOR) 20 mg tablet Take 1 tablet (20 mg total) by mouth 1 (one) time each day. 02/11/2024 documented as of this encounter Discharge Disposition Disposition Code Departure Means Destination Home or Self Care documented in this encounter Plan of Treatment Scheduled Procedures Name Priority Associated Diagnoses Date/Ti me LEFT HEART CATH / CORONARY ANGIOGRAPHY CVD (cardiovascular disease) documented as of this encounter Procedures Procedure Name Priority Date/Time Associated Diagnosis Comments CT ANGIO CHEST WO AND/OR W CONTRAST Routine 09/01/2024 3:28 PM EST Aortic root dilatation (CMS/HCC) documented in this encounter Results * CT Angio Chest wo and/or [...] Society of Cardiovascular Computed Tomography (SCCT), the [place] College [employer] Cardiology (ACC), the [place] College of Radiology (ACR), and the North [...] on 09/01/2024 7:01 PM. Workstation Name - [id number] -------- FINAL REPORT -------- Dictated By: Davon Quijano Dictated Date: 09/01/2024 18:10 ET Assigned Physician: Davon Quijano Reviewed and Electronically Signed By: Davon Quijano Signed Date: 09/01/2024 19:01 ET Workstation ID: [id number] Transcribed By: Self Edit Transcribed Date: 09/01/2024 [...] aorta is normal in course and caliber (ixywdkitt47.1 mm in diameter at the level of [...] the Society of Cardiovascular ComputedTomography (SCCT), the [place] College [employer] Cardiology (ACC), the AmericanCollege of [...] Quijano on 09/01/2024 7:01 PM.Workstation Name - [id number] -------- FINAL REPORT -------- Dictated By: Davon Quijano Dictated Date: 09/01/2024 18:10 ET Assigned Physician: Davon Quijano Reviewed and Electronically Signed By: Davon Quijano Signed Date: 09/01/2024 19:01 ET Workstation ID: [id number] Transcribed By: Self Edit Transcribed Date: 09/01/2024 18:10 ET Kit Gonzalez MD IMG CT PROCEDURE S documented in this encounter Visit Diagnoses Diagnosis Aortic root dilatation (CMS/HCC) Thoracic aneurysm without mention of rupture documented in this encounter Administered Medications Inactive Administered Medications - up to 3 most recent administrations Medication Order MAR Action Action Date Dose Rate Site iopamidoL (ISOVUE-370) 370 mg iodine /mL (76 %) injection 100 mL 100 mL, intravenous, Once in imaging, Starting on Fri09/01/24 at 1525, For 1 dose Given 09/01/2024 3:29 PM EST 100 mL sodium chloride 0.9 % flush 10 mL 10 mL, intravenous, Once, On Fri09/01/24 at 1545, For 1 dose Given 09/01/2024 3:28 PM EST 10 mL sodium chloride 0.9 % intravenous solution 50 mL 50 mL, intravenous, Once in imaging, Starting on Fri09/01/24 at 1525, For 1 dose Given 09/01/2024 3:29 PM EST 50 mL documented in this encounter Care Teams Material Dispatcher Relationship Specialty Start Date End Date Diane Polanco MD [address] [place] [address] PCP - General 04/07/24 documented as of this encounter
[2024-09-06 10:46] LABS: Alanine Aminotransferase 42 U/L (0-40); Albumin Level 4.3 g/dL (3.5-5.0); Alkaline Phosphatase 80 U/L (39-117); Anion Gap 11 (12-20); Aspartate Amino Transferase 24 U/L (5-37); Bilirubin Total 0.6 mg/dL (0.0-1.0); Blood Urea Nitrogen 13 mg/dL (9-16); Calcium 9.2 mg/dL (8.4-10.2); Carbon Dioxide 24 mmol/L (22-29); Chloride 109 mmol/L (96-108); Estimated Glomerular Filt Rate > 60; Glucose Random 96 mg/dL (60-115); Potassium 4.2 mmol/L (3.3-5.1); Sodium 140 mmol/L (135-145)
== END 2024-09-06 06:25 | disposition home or self-care (01) ==
LOC: HO.HMGCLDS 06:24
PROVIDERS: PCP Internal Medicine; Visit Provider Nurse Practitioner Family
DX: E78.5 Hyperlipidemia, unspecified (principal); Z82.49 Family history of ischemic heart disease and other diseases of the circulatory system
CPT/HCPCS: 36415; 80053

== ENCOUNTER 2024-09-07 06:48 | Outpatient (REF) | payer BC, SELFPAY ==
--- OUTSIDE RECORDS SUMMARY | 2024-09-07 06:52 | XMS_ITS | Encounter Summary ---
Author Organization [facility] Address [address] [place] [address] Care Team Providers Care Feedlot Manager Name Role Phone Diane Polanco MD Primary Care Provider [phone] Reason for Visit * Consultation (Urgent) - Closed Specialty Diagnoses / Procedures Referred By Contac t Referred To Contact Cardiothoracic Surgery Diagnoses Mixed hyperlipidemia Aneurysm of ascending aorta without rupture (CMS/HCC) Elevated blood pressure reading Victoriano Hanley MD [address] [place] [address] Kit Gonzalez MD [address] [facility] [address] [place] [address] Referral ID Status Reason Start Date Expiration Date V isits Requested Visits Authorized [id number] Closed Specialty Services Required 08/10/2024 08/10/2025 1 1 Encounter Details Date Type Department Care Team ([facility] Contact Info) Description 08/12/2024 1:30 PM EST [facility] [address] [place] [phone] Kit Gonzalez MD [address] [facility] [address] [place] [address] Mixed hyperlipidemia; Aneurysm of ascending aorta without [...] get a gated CAT scan here at [place] and a cardiac catheterization and then proceed with valve sparing aortic root replacement. He and his have had the opportunity to ask questions which were answered and there appeared roxana no barriers to learning. documented in this encounter Plan of Treatment Upcoming Encounters Date Type Department Care Team (Latest Contact Info) Description 09/10/2024 9:30 AM EST Hospital Encounter [facility] Card[facility] [address] [place] [phone] Kit Houser, DO [address] [place] [address] CVD (cardiovascular disease) 09/10/2024 9:30 AM EST - 09/10/2024 11:00 AM EST Surgery [facility] Cardiac [facility] [address] [place] [phone] Kit Houser, DO [address] [place] [address] Left heart cath / Coronary angiography documented as of this encounter Visit Diagnoses Diagnosis Mixed hyperlipidemia Aneurysm of ascending aorta without rupture (CMS/HCC) Elevated blood pressure reading Elevated blood pressure reading without diagnosis of hypertension CVD (cardiovascular disease)- Primary Unspecified cardiovascular disease CVD (cardiovascular disease) Unspecified cardiovascular disease documented in this encounter Historical Medications * This list may reflect changes made after this encounter. Medication Sig Dispensed Refills Start Date End Date losartan (COZAAR) 25 mg tablet Take 1 tablet (25 mg total) by mouth 1 (one) time each day. added in this encounter Orders Outpatient Referral Count Last Ordered Date Fir st Ordered Date AMB REFERRAL TO CARDIOTHORACIC SURGERY 1 documented in this encounter Care Teams Feedlot Manager Relationship Specialty Start Date End Date Diane Polanco MD [address] [place] [address] PCP - General 04/07/24 documented as of this encounter
--- OUTSIDE RECORDS SUMMARY | 2024-09-07 06:52 | XMS_ITS | Clinical Summary ---
Author Organization [facility] Address [address] [place] [address] Care Team Providers Care Bevel Mill Operator Name Role Phone Diane Polanco MD Primary Care Provider [phone] Allergies No known active allergies Medications Medication [...] age to complete this topic Care Teams Bevel Mill Operator Relationship Specialty Start Date End Date Diane Polanco MD [address] [place] [address] PCP - General Hand Driller 04/07/24
--- OUTSIDE RECORDS SUMMARY | 2024-09-07 06:52 | XMS_ITS | Encounter Summary ---
Author Organization [facility] Address [address] [place] [address] Care Team Providers Care Arranging Funeral Director Name Role Phone Diane Polanco MD Primary Care Provider [phone] Encounter Details Date Type Department Care Team (Late st Contact Info) Description 08/17/2024 Telephone Cardiothoracic Surgery [facility] [address] [place] [phone] Gala Giordano MA Social History Tobacco [...] Giordano MA - 08/17/2024 1:43 PM EST [facility] cert number : [id number] FOR CTA CHEST ON 09/01/24. 08/17/2024-10/15/2024 CALLED ALFA @140PM documented in this encounter Plan of Treatment Upcoming Encounters Date Type Department Care Team (Latest Contact Info) Description 09/10/2024 9:30 AM EST Hospital Encounter [facility] Cardiac [facility] [address] [place] [address] Kit Houser, DO [address] [address] CVD (cardiovascular disease) 09/10/2024 9:30 AM EST - 09/10/2024 11:00 AM EST Surgery [facility] Cardiac [facility] [address] [place] [phone] Kit Houser, DO [address] [address] Left heart cath / Coronary angiography documented as of this encounter Visit Diagnoses Not on filedocumented in this encounter Care Teams Arranging Funeral Director Relationship Specialty Start Date End Date Diane Polanco MD [address] [place] [address] PCP - General 04/07/24 documented as of this encounter
--- OUTSIDE RECORDS SUMMARY | 2024-09-07 06:52 | XMS_ITS | Encounter Summary ---
Author Organization [facility] Address [address] [place] [address] Care Team Providers Care Induction Machine Operator Name Role Phone Diane Polanco MD Primary Care Provider [phone] Reason for Visit * Reason Onset Date Comments procedure booking 09/06/2024 Encounter Details Date Type Department Care Team (Late st Contact Info) Description 09/06/[address] [place] [address] Lew Rollins LPN procedure booking Social History Tobacco Use Types Packs/Day Years [...] as of this encounter Progress Notes * Lew Rollins LPN - 09/06/2024 9:22 AM EST Cath schedule 09/10 Instructions given to patient All questions answered documented in this encounter Plan of Treatment Upcoming Encounters Date Type Department Care Team (Latest Contact Info) Description 09/10/2024 9:30 AM EST Hospital Encounter [facility] Cardiac Bread Room Hand [address] [place] [address] Kit Houser, DO [address] [address] CVD (cardiovascular disease) 09/10/2024 9:30 AM EST - 09/10/2024 11:00 AM EST Surgery [facility] Cardiac Bread Room Hand [address] [place] [address] Kit Houser F, DO [address] [address] Left heart cath / Coronary angiography documented as of this encounter Visit Diagnoses Not on filedocumented in this encounter Care Teams Induction Machine Operator Relationship Specialty Start Date End Date Diane Polanco MD [address] [place] [address] PCP - General 04/07/24 documented as of this encounter
--- OUTSIDE RECORDS SUMMARY | 2024-09-07 06:52 | XMS_ITS | Encounter Summary ---
Author Organization [facility] Address [address] [place] [address] Care Team Providers Care Chief Of Production Name Role Phone Diane Polanco MD Primary Care Provider [phone] Reason for Referral * Imaging (Routine) - Closed Specialty Diagnoses / Procedures Referred By Contac t Referred To Contact Radiology Diagnoses Aortic root dilatation (CMS/HCC) Procedures CT Angio Chest wo and/or w Contrast Kit Gonzalez MD [address] [place] [address] [facility] [place] Referral ID Status Reason Start Date Expiration Date Visits Re quested Visits Authorized [id number] Closed 08/17/2024 10/15/2024 1 1 Reason for Visit * Imaging (Routine) - Closed Specialty Diagnoses / Procedures Referred By Contac t Referred To Contact Radiology Diagnoses Aortic root dilatation (CMS/HCC) Procedures CT Angio Chest wo and/or w Contrast Kit Gonzalez MD [address] [place] [address] [place] [address] [facility] [place] Referral ID Status Reason Start Date Expiration Date Visits Re quested Visits Authorized [id number] Closed 08/17/2024 10/15/2024 1 1 Encounter Details Date Type Department Care Team (Latest Contact Info) Description 09/01/2024 2:12 PM EST - 09/01/2024 11:59 PM EST Hospital Encounter [facility] CT Scan [address] [place] [address] Aortic root dilatation (CMS/HCC) Discharge Disposition: Home [...] by mouth 1 (one) time each day. omeprazole (PriLOSEC) [address] capsule Take [...] Description 09/10/2024 9:30 AM EST Hospital Encounter [facility] Cardiac Methods Examiner [address] [place] [phone] Kit Houser, DO [address] [place] [address] CVD (cardiovascular disease) 09/10/2024 9:30 AM EST - 09/10/2024 11:00 AM EST Surgery [facility] Cardiac Methods Examiner [address] [place] [phone] Kit Houser, DO [address] [place] [address] Left heart cath / Coronary angiography documented as of this encounter Procedures Procedure [...] Society of Cardiovascular Computed Tomography (SCCT), the [place] College of Cardiology (ACC), the [place] College of Radiology (ACR), and the [place] [...] on 09/01/2024 7:01 PM. Workstation Name - [id number] -------- FINAL REPORT -------- Dictated By: Davon Quijano Dictated Date: 09/01/2024 18:10 ET Assigned Physician: Davon Quijano Reviewed and Electronically Signed By: Davon Quijano Signed Date: 09/01/2024 19:01 ET Workstation ID: [id number] Transcribed By: Self Edit Transcribed Date: 09/01/2024 [...] aorta is normal in course and caliber (cahuyaezd73.1 mm in diameter at the level of [...] the Society of Cardiovascular ComputedTomography (SCCT), the [place] College of Cardiology (ACC), the AmericanCollege of [...] Quijano on 09/01/2024 7:01 PM.Workstation Name - [id number] -------- FINAL REPORT -------- Dictated By: Davon Quijano Dictated Date: 09/01/2024 18:10 ET Assigned Physician: Davon Quijano Reviewed and Electronically Signed By: Davon Quijano Signed Date: 09/01/2024 19:01 ET Workstation ID: [id number] Transcribed By: Self Edit Transcribed Date: 09/01/2024 18:10 ET Kit Gonzalez MD IMG CT PROCEDURE S documented in this encounter Visit Diagnoses Diagnosis Aortic root dilatation (CMS/HCC) Thoracic aneurysm without mention of rupture CVD (cardiovascular disease)- Primary Unspecified cardiovascular disease CVD (cardiovascular disease) Unspecified cardiovascular disease documented in this encounter Administered Medications Inactive [...] mL documented in this encounter Care Teams Chief Of Production Relationship Specialty Start Date End Date Diane Polanco MD [address] [place] [address] PCP - General 04/07/24 documented as of this encounter
--- OUTSIDE RECORDS SUMMARY | 2024-09-07 06:52 | XMS_ITS | Encounter Summary ---
Author Organization [facility] Address [address] [place] [address] Care Team Providers Care Pattern Grader Name Role Phone Diane Polanco MD Primary Care Provider [phone] Encounter Details Date Type Department Care Team [...] Description 09/10/2024 9:30 AM EST Hospital Encounter [facility] Cardiac Tool Turret Lathe Set Up Operator [address] [place] [address] Kit Houser, DO [address] [phone] CVD (cardiovascular disease) 09/10/2024 9:30 AM EST - 09/10/2024 11:00 AM EST Surgery [facility] Cardiac Tool Turret Lathe Set Up Operator [address] [place] [address] Kit Houser, DO 19 [facility] [address] [place] [address] Left heart cath / Coronary angiography documented [...] 9:32 AM EDT Report completed outside of [employer]. ??Refer to scanned document and/or notes for final report. Not Vldtd Procedure Note Historical, Cardiovascular Results, - 06/08/2024 Report completed outside of [employer]. Refer to scanned document and/or notesfor final report. Not Vldtd Victoriano Hanley MD CV HISTORICAL CONV P ROCEDURES documented in this encounter Visit Diagnoses Diagnosis Mixed hyperlipidemia Aneurysm of the ascending aorta, without rupture (CMS/HCC) CVD (cardiovascular disease)- Primary Unspecified cardiovascular disease CVD (cardiovascular disease) Unspecified cardiovascular disease documented in this encounter Care Teams Pattern Grader Relationship Specialty Start Date End Date Diane Polanco MD [address] [place] [address] PCP - General 04/07/24 documented as of this encounter
--- OUTSIDE RECORDS SUMMARY | 2024-09-07 06:52 | XMS_ITS | Clinical Summary ---
Author Organization [facility] ter Address [address] [place] [address] Phone Care Team Providers Care Sweater Operator Name Role Phone Diane Polanco MD Primary Care Provider [phone] Allergies No known active allergies Medications Medication Sig Dispensed Refills Start Date End Date Status rosuvastatin (CRESTOR) 20 mg tablet Take 1 tablet (20 mg total) by mouth 1 (one) time each day. 02/11/2024 Active omeprazole (PriLOSEC) [address] capsule Take 1 capsule (20 mg total) by mouth 1 (one) time each day. 03/22/2024 Active losartan (COZAAR) 25 mg tablet Take 1 tablet (25 mg total) by mouth 1 (one) time each day. Active Active Problems Problem Noted Date Diagnosed Date CVD (cardiovascular disease) 09/03/2024 Encounters Date Type Department Care Team Description 09/06/2024 Telephone [facility] Cardiology [address] [place] [phone] Lew Rollins LPN procedure booking 09/01/2024 2:12 PM EST - 09/01/2024 11:59 PM EST Hospital Encounter [facility] CT Scan [address] [place] [address] Aortic root dilatation (CMS/HCC) Discharge Disposition: Home or Self Care 08/17/2024 Telephone Cardiothoracic Surgery [facility] [address] [place] [phone] Gala Giordano MA 08/12/2024 1:30 PM EST Consult Cardiothoracic Surgery [facility] [address] [place] [address] Kit Gonzalez MD Mixed hyperlipidemia; Aneurysm of ascending aorta without rupture (CMS/HCC); Elevated blood pressure reading 08/10/2024 11:15 AM EST Office Visit [facility] [address] [facility] [address] [place] [address] Victoriano Hanley MD Mixed hyperlipidemia [...] 08/12/2024 1:29 PM EST Plan of Treatment Upcoming Encounters Date Type Department Care Team (Latest Contact Info) Description 09/10/2024 9:30 AM EST Hospital Encounter [facility] Cardiac Business Transformation Analyst [address] [facility] [place] [address] Kit Houser, DO [address] [phone] CVD (cardiovascular disease) 09/10/2024 9:30 AM EST - 09/10/2024 11:00 AM EST Surgery [facility] Cardiac Business Transformation Analyst [address] [facility] [place] [address] MikKit, DO [address] [phone] Left heart cath / Coronary angiography Health Maintenance Due Date Last Done Comments [...] Influencers of Health Screening 09/09/2023 COVID-19 Vaccine (1 - 2023-2 5 season) 2024 Influenza Vaccine [...] Society of Cardiovascular Computed Tomography (SCCT), the [place] College of Cardiology (ACC), the [place] College of Radiology (ACR), and the North [...] on 09/01/2024 7:01 PM. Workstation Name - [id number] -------- FINAL REPORT -------- Dictated By: Davon Quijano Dictated Date: 09/01/2024 18:10 ET Assigned Physician: Davon Quijano Reviewed and Electronically Signed By: Davon Quijano Signed Date: 09/01/2024 19:01 ET Workstation ID: [id number] Transcribed By: Self Edit Transcribed Date: 09/01/2024 [...] aorta is normal in course and caliber (uzsfuuzqc48.1 mm in diameter at the level of [...] the Society of Cardiovascular ComputedTomography (SCCT), the [place] College of Cardiology (ACC), the AmericanCollege of [...] Quijano on 09/01/2024 7:01 PM.Workstation Name - [id number] -------- FINAL REPORT -------- Dictated By: Davon Quijano Dictated Date: 09/01/2024 18:10 ET Assigned Physician: Davon Quijano Reviewed and Electronically Signed By: Davon Quijano Signed Date: 09/01/2024 19:01 ET Workstation ID: [id number] Transcribed By: Self Edit Transcribed Date: 09/01/2024 18:10 ET Kit Gonzalez MD IMG CT PROCEDURE S from Last 3 Months Care Teams Sweater Operator Relationship Specialty Start Date End Date Diane Polanco MD [address] [place] [address] PCP - General 04/07/24
--- OUTSIDE RECORDS SUMMARY | 2024-09-07 06:52 | XMS_ITS | Encounter Summary ---
Author Organization [facility] Address [address] [place] [address] Care Team Providers Care Rubber Extrusion Machine Operator Name Role Phone Diane Polanco MD Primary Care Provider [phone] Reason for Referral * Consultation (Urgent) - Closed Specialty Diagnoses / Procedures Referred By Contac t Referred To Contact Cardiothoracic Surgery Diagnoses Mixed hyperlipidemia Aneurysm of ascending aorta without rupture (CMS/HCC) Elevated blood pressure reading Victoriano Hanely MD [address] [place] [address] Kit Richard MD [address] [place] [address] Referral ID Status Reason Start Date Expiration Date V isits Requested Visits Authorized [id number] Closed Specialty Services Required 08/10/2024 08/10/2025 1 1 Encounter Details Date Type Department Care Team (Late st Contact Info) Description 08/10/2024 11:15 AM EST Office Visit [facility] - [address] [place] [address] [place] [phone] Victoriano Hanley MD [address] [place] [address] Mixed hyperlipidemia (Primary Dx); Aneurysm of ascending [...] through Care Everywhere. * Aneurysm: Thoracic Aortic (Macedonian) documented in this encounter Progress Notes * [...] dig earth or use a sledgehammer or doctor of radiology. Take illicit drugs. Go on amusement park [...] from the original note were not included. [facility], [facility] SUBJECTIVE: The patient comes in for a [...] on 05/25/2024 1:09 PM. Workstation Name - [id number] Not Vldtd No results found for this [...] Victoriano Hanley MD., FACC., FASNC., FCPS., FACP. [facility], [facility] [phone]. 10:50 AM EST08/10/2024 This dictation was performed using voice recognition software. Word substitution may have occurred and may have gone unnoticed and uncorrected. documented in this encounter Plan of Treatment Upcoming Encounters Date Type Department Care Team (Latest Contact Info) Description 09/10/2024 9:30 AM EST Hospital Encounter [facility] Cardiac Poiser Balance [address] [place] [phone] Kit Houser, DO [address] [place] [address] CVD (cardiovascular disease) 09/10/2024 9:30 AM EST - 09/10/2024 11:00 AM EST Surgery [facility] Cardiac Poiser Balance [address] [place] [address] Kit Houser, DO [address] [place] [address] Left heart cath / Coronary angiography Scheduled Orders Name Type Priority Associated Diagnoses Orde r Schedule ECG 12 lead ECG Routine Mixed hyperlipidemia Aneurysm of ascending aorta without rupture (CMS/HCC) Elevated blood pressure reading Ordered: 08/10/2024 Scheduled Referrals Name Type Priority Associated Diagnoses [...] disease documented in this encounter Care Teams Rubber Extrusion Machine Operator Relationship Specialty Start Date End Date Diane Polanco MD [address] [place] [phone] PCP - General 04/07/24 documented as of this encounter
[2024-09-07 10:15] LABS: MANUAL DIFF FLAG NO
[2024-09-07 10:20] LABS: Basophils Percent Auto 0.5 % (0-2); Eosinophils Absolute Auto 0.2 X10*3/uL (0.0-0.4); Eosinophils Percent Auto 3.2 % (0-4); Hematocrit 40.7 % (42.0-52.0); Hemoglobin 14.5 g/dl (14.0-18.0); Imm Gran Abs Auto 0.03 X10*3/uL (0.00-0.03); Imm Gran Pct Auto 0.5 % (0.0-0.4); Lymphocytes Absolute Auto 1.3 X10*3/uL (1.2-4.9); Lymphocytes Percent Auto 22.2 % (20-40); Mean Corpuscular HGB Conc 35.6 g/dl (31.0-36.0); Mean Corpuscular Volume 89.8 fL (80.0-98.0); Mean Platelet Volume 10.5 fL (9.4-12.4); Monocytes Absolute Auto 0.6 X10*3/uL (0.1-1.2); Monocytes Percent Auto 10.9 % (2-11); Neutrophils Absolute Auto 3.5 x10*3/uL (2.0-8.3); Neutrophils Percent Auto 62.7 % (45-73); Platelet Count 238 X10*3/uL (160-400); Red Blood Count 4.53 X10*6/uL (4.60-5.80); Red Cell Distribution Width 11.4 % (11.0-16.0); White Blood Count 5.6 X10*3/uL (4.8-10.8)
[2024-09-07 10:23] LABS: INTERNATIONAL NORM RATIO 0.9 (0.9-1.1); Prothrombin Time 10.4 SEC (10.9-12.4)
[2024-09-07 10:48] LABS: Anion Gap 9 (12-20); Blood Urea Nitrogen 13 mg/dL (9-16); Calcium 9.4 mg/dL (8.4-10.2); Carbon Dioxide 25 mmol/L (22-29); Chloride 107 mmol/L (96-108); Estimated Glomerular Filt Rate > 60; Glucose Random 109 mg/dL (60-115); Potassium 4.3 mmol/L (3.3-5.1); Sodium 137 mmol/L (135-145)
== END 2024-09-07 06:49 | disposition home or self-care (01) ==
LOC: HO.HMGCLDS 06:48
PROVIDERS: PCP Internal Medicine; Visit Provider Internal Medicine Cardiovascular Disease
DX: Z01.810 Encounter for preprocedural cardiovascular examination (principal); Z79.01 Long term (current) use of anticoagulants
CPT/HCPCS: 36415; 80048; 85025; 85610

== ENCOUNTER 2024-11-08 10:39 | Outpatient (REF) | payer BC, SELFPAY ==
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
--- OUTSIDE RECORDS SUMMARY | 2024-11-08 12:01 | XMS_ITS | Clinical Summary ---
Author Organization [facility] Address [address] [place] [address] Phone Care Team Providers Care Space Operations Name Role Phone Diane Polanco MD Primary Care Provider [phone] Allergies No known active allergies Medications rosuvastatin (CRESTOR) 20 mg tablet Take 1 tablet (20 mg total) by mouth 1 (one) time each day. 024 Active omeprazole (PriLOSEC) [address] capsule Take 1 capsule (20 mg total) by mouth 1 (one) time each day. 024 Active amiodarone (PACERONE) 200 mg tabletIndicatio ns:atrial fibrillation Take 1 tablet (200 mg total) by mouth 1 (one) time each day. 30 each 1 5 12:31 PM EST 025 2025 Active omeprazole (PriLOSEC) [address] capsule Take 1 capsule (40 mg total) by mouth 1 (one) time each day before breakfast. 30 each 5 12:31 PM EST 025 2024 Active oxyCODONE (ROXICODONE) 5 mg immediate release tabletIndicatio ns:S/P aortic aneurysm repair Take 1 tablet (5 mg total) by mouth every 6 (six) hours if needed for severe pain. Max Daily Amount: 20 mg 30 tablet 5 12:31 PM EST 025 Active Additional Information Patient not taking.Reported on 10/26/2024 acetaminophen (TYLENOL) 325 mg tablet Take 1 tablet (325 mg total) by mouth every 6 (six) hours if needed for mild pain. Active docusate sodium (COLACE) 50 mg capsule Take 1 capsule (50 mg total) by mouth 2 (two) times a day. Active calcium carbonate-vitam in D 500 mg-5 mcg (200 unit) per tablet Take 1 tablet by mouth 1 (one) time each day. Active apixaban (Eliquis) 5 mg tablet Take 1 tablet (5 mg total) by mouth 2 (two) times a day. 180 each 1 025 2024 Active metoprolol succinate (TOPROL-XL) 25 mg 24 hr tablet Take 1 tablet (25 mg total) by mouth 1 (one) time each day. Do not crush or chew. 90 each 3 025 2025 Active losartan (COZAAR) 25 mg tablet Take 1 tablet (25 mg total) by mouth 1 (one) time each day. 2024 Discontinued(S top Taking at Discharge) acetaminophen (TYLENOL) 325 mg tablet Take 2 tablets (650 mg total) by mouth every 6 (six) hours if needed for mild pain, fever - temperature GREATER than 38 C (100.4 F), moderate pain or headaches for up to 10 days. 025 2024 aspirin 81 mg EC tablet Take 1 tablet (81 mg total) by mouth 1 (one) time each day. 30 each 1 5 12:31 PM EST 2024 Discontinued polyethylene glycol (MIRALAX) 17 gram packet Mix 1 packet (17 g) with 8oz of fluid (water, juice, coffee) and drink at bedtime for 3 days. 51 g 025 2024 docusate sodium (Colace) 100 mg capsule Take 1 capsule (100 mg total) by mouth 1 (one) time each day if needed for constipation for up to 7 days. 7 capsule 5 12:31 PM EST 025 2024 Active Problems Problem Noted Date Diagnosed Date Paroxysmal atrial fibrillation 10/04/2024 History of aortic root repair 10/04/2024 Ascending aortic aneurysm 10/03/2024 Aneurysm of ascending aorta without rupture 09/12 Hypertension 09/03/2024 GERD (gastroesophageal reflux disease) HLD (hyperlipidemia) Overview (09/23/2024): DX:HLD (hyperlipidemia) Thoracic aortic aneurysm Overview (09/23/2024): DX:Thoracic aortic aneurysm (HCC) Encounters Date Type Department Care Team Description 11/05/2024 12:30 PM EDT Procedure visit [place] [address] [phone] Patrizia Burroughs NP Paroxysmal atrial fibrillation (CMS/HCC) (Primary Dx) 11/05/[address] [facility] [address] [phone] Lew Rollins LPN procedure booking 11/05/2024 Telephone [facility]iology [address] [phone] Loulou Cobb LPN Plan of care A-FIB 11/05/[address] [facility] [address] [phone] Lew Rollins LPN Pre-procedural cardiovascular examination 10/29/2024 Telephone [facility] Cardiology [facility] [address] [place] [phone] Sandrita Giordano, LISBETH Medication Problem 10/29/[address] [facility] [address] [phone] Lew Rollins LPN Pre-procedural cardiovascular examination 10/26/2024 3:00 PM EDT Office [facility] [address] [phone] Dom Lawton NP CVD (cardiovascular disease) (Primary Dx); Paroxysmal atrial fibrillation (CMS/HCC) 10/22/[address] [facility] [address] [phone] Lew Rollins LPN Pre-procedural cardiovascular examination 10/15/[address] [facility] [address] [phone] Lew Rollins LPN Pre-procedural cardiovascular examination 10/12/2024 Telephone [facility] Cardiology [address] [phone] Emili Rod LPN 10/11/2024 Telephone [facility] CV Surg Card 8-[address] [place] [phone] Blanca Joya, RN Follow-up 10/11/2024 Telephone [facility] CV Surg Card 8-[address] [place] [phone] Blanca Joya, RN Follow-up 10/08/[address] [phone] Lew Rollins LPN Pre-procedural cardiovascular examination 10/04/2024 7:15 AM EST - 10/04/2024 11:45 AM EST Surgery [facility] CV OR [address] [place] [phone] Kit Gonzalez MD REPAIR ANEURYSM THORACIC AORTA ASCEND [06230 (CPT??)] 10/04/2024 7:15 AM EST Anesthesia Event [facility] CV OR [address] [place] [phone] Corby Britton MD Sakal, Angela, [facility] 10/03/2024 3:21 PM EST - 10/10/2024 12:32 PM EST Hospital Encounter [facility] CV Surg Card 8-[address] [place] [phone] Kit Gonzalez MD Aneurysm of ascending aorta without rupture (CMS/HCC) (Primary Dx); Aortic root aneurysm; S/P aortic aneurysm repair Discharge Disposition: Home-Health Care Sv 10/01/[address] [facility] [address] [phone] Lew Rollins LPN Pre-procedural cardiovascular examination 09/24/[address] [facility] [address] [phone] Lew Rollins LPN Pre-procedural cardiovascular examination 09/23/2024 10:40 AM EST - 09/23/2024 11:59 PM EST Hospital Encounter [facility] Pulmonary Lab [address] [place] [phone] Preop cardiovascular exam Discharge Disposition: Home or Self Care 09/23/2024 8:30 AM EST Consult [facility] CV Pre Admission Testing [address] [place] [phone] Arelis Miranda PA Pre-op testing (Primary Dx); Hyperlipidemia, unspecified hyperlipidemia type; Aneurysm of ascending aorta without rupture (CMS/HCC); Gastroesophageal reflux disease, unspecified whether esophagitis present; Primary hypertension 09/17/2024 [facility] [place] [facility] [address] [phone] Lew Rollins LPN Pre-procedural cardiovascular examination 09/10/2024 9:30 AM EST - 09/10/2024 11:00 AM EST Surgery [facility] Cardiac Cut Off Saw Set Up Operator [address] [place] [phone] Kit Houser DO Left heart cath / Coronary angiography 09/10/2024 7:03 AM EST - 09/10/2024 1:52 PM EST Hospital Encounter [facility] Cardiac Cut Off Saw Set Up Operator [address] [place] [phone] Kit Houser DO Aneurysm of ascending aorta without rupture (CMS/HCC) (Primary Dx); CVD (cardiovascular disease) Discharge Disposition: Home or Self Care 09/10/[address] [facility] [address] [phone] Lew Rollins LPN Pre-procedural cardiovascular examination 09/06/[address] [facility] [address] [phone] Lew Rollins LPN procedure booking 09/01/2024 2:12 PM EST - 09/01/2024 11:59 PM EST Hospital Encounter [facility] CT Scan [address] [facility] [place] [phone] Aortic root dilatation (CMS/HCC) Discharge Disposition: Home or Self Care 08/17/2024 Telephone Cardiothoracic Surgery [facility] [address] [place] [address] Gala Giordano MA 08/12/2024 1:30 PM EST Consult Cardiothoracic Surgery [facility] [address] [place] [address] Kit Gonzalez MD Mixed hyperlipidemia; Aneurysm of ascending aorta without rupture (CMS/HCC); Elevated blood pressure reading 08/10/2024 11:15 AM EST Office [facility] [place] [address] [facility] [address] [place] [address] Victoriano Hanley MD Mixed hyperlipidemia (Primary Dx); Aneurysm of ascending aorta without rupture (CMS/HCC); Elevated blood pressure reading from Last 3 Months Surgical History Surgery Date Site/Laterality Comments CYST REMOVAL Right foot & back VASECTOMY Medical History Medical History Date Comments Thoracic aortic aneurysm (CMS/HCC) DX:Thoracic aortic aneurysm (HCC) HLD (hyperlipidemia) DX:HLD (hyp erlipidemia) Hypertension Borderline GERD (gastroesophageal reflux disease) Graff's esophagus Family History Medical History Relation Name Comments No Known Problems Brother No Known Problems Daughter 1 Diabetes type I Daughter 2 Aneurysm Father Supra renal Aor tic Aneurysm repair in 57 Aneurysm Father's Brother 1 AAA Aneurysm Father's Brother 2 Cerebral Aneurysm Father's Sister AAA Colon cancer Mother Lung cancer Mother Aneurysm Paternal Grandfather AAA Kidney failure Sister 1 Renal Transpl ant Kidney failure Sister 2 Renal transpa lnt Relation Name Status Comments Brother Alive Daughter 1 Alive Daughter 2 Alive Father Father's Brother 1 Father's Brother 2 Father's Sister Alive Mother Paternal Grandfather Sister 1 Alive Sister 2 Alive Social [...] Orientation Straight 09/08/2024 11 :28 AM EST Obstetrics History Last Filed Vital Signs Vital Sign Reading Time Taken Comments Blood Pressure 118/70 10/26/2024 3:03 PM EDT Pulse 113 10/26/2024 3:03 PM EDT Temperature 37.3 ??C (99.1 ??F) 10/10/2024 3:00 AM ES T Respiratory Rate 25 10/10/2024 3:00 AM EST Oxygen Saturation 96% 10/26/2024 3:03 PM EDT Inhaled Oxygen Concentration - - Weight 104 kg (230 lb) 10/26/2024 3:03 PM EDT Height 190.5 cm (6' 3 ) 10/26/2024 3:03 PM EDT Body Mass Index 28.75 10/26/2024 3:03 PM EDT Plan of Treatment Upcoming Encounters Date Type Department Care Team (Latest Contact Info) Description 11/08/2024 1:00 PM EDT Appointment [facility] Non-Invasive Cardiology [address] [place] [phone] 11/08/2024 2:00 PM EDT Office Visit Cardiothoracic Surgery [facility] [address] [place] [phone] Kit Gonzalez MD [address] [place] [phone] 11/09/2024 7:00 AM EDT Hospital Encounter [facility] Non-Invasive Cardiology [address] [place] [phone] Victoriano Hanley MD [address] [phone] 11/12/[address] [facility] [place] 19 [facility] [address] [place] [phone] Lew Rollins LPN Pre-procedural cardiovascular examination 11/30/2024 4:00 PM EDT Office Visit [facility] [place] 19 [facility] [address] [place] [address] Victoriano Hanley MD 19 [facility] [address] [place], [place] [phone] Health Maintenance Due Date Last Done Comments DTaP,Tdap,and Td Vaccines (1 - Tdap) 11/20/1987 Hepatitis A Vaccines (1 of 2 - Risk 2-dose series) 11/20/1987 Hepatitis B Vaccines (1 of 3 - 19+ 3-dose series) 11/20/1987 Pneumococcal Vaccine: 50+ Years (1 of 1 - PCV) 2018 Zoster Vaccines (1 of 2) 2018 Colorectal Cancer Screening: Colonoscopy 09/09/2023 Depression Screening 09/09/2023 HIV Screening 09/09/2023 Hepatitis C Screening 09/09/2023 Social Influencers of Health Screening 09/09/2023 COVID-19 Vaccine ( - season) 2024 Influenza Vaccine (#1) 2024 Hypertension/CHF/CAD Annual BMP Blood Test 10/08/2025 10/08/2024, 10/06/2024, 10/05/2024, Additional history exists Cholesterol Screening (Lipid Panel) 09/23/2029 09/23/2024 HIB Vaccines Aged Out No longer eligi [...] patient's age to complete this topic Meningococcal B Vacine Aged Out No lo nger eligible based on patient's age to complete this topic Pneumococcal Vaccine: Pediatrics (0 to 5 Years) and At-Risk Patients (6 to 64 Years) Aged Out No longer eligible based on patient's age to complete this topic RSV Immunization Patients Under 20 months Aged Out No longer eligible based on patient's age to complete this topic Varicella Vaccines Aged Out No longer eligible based on patient's age to complete this topic Medical Devices Implanted Type Area Lidder Device Identifier Shelf Expiration Date Model / Serial / Lot Surgiflo Hemostatic Matrix - Sna - [id number] Implanted:Qt y: 2 on 10/04/2024 by Kit Gonzalez MD at [facility] Hemostasis N/A: Chest [employer] 06/17/2026 [id number] / [id number] / [id number] Cable Strnl 3 Blnt 1 Cut 4pk - Sna - [id number] Implanted:Qt y: 1 on 10/04/2024 by Kit Gonzalez MD at [facility] Internal and External Fixation N/A: Sternum BIOMET MICROFIXN- A AND E MED ITEMS 05/27/2029 [id number] / [id number] / [id number] System Perclose Prostyle Suture Medicated - [id number] - [id number] Implanted:Qt y: 1 on 09/10/2024 by Kit Houser DO at [facility] Vascular Closure Devices Right: Wrist [employer] [facility] [id number] 07/10/2026 [id number] / [id number] / [id number] Graft Vasc Valsalva [id number] Gelweave - [id number] - [id number] Implanted:Qt y: 1 on 10/04/2024 by Kit Gonzalez MD at [facility] Vascular Grafts N/A: Heart [employer] 02/07/2027 [id number] / [id number] / [id number] Procedures Procedure Name Priority Date/Time Associated Diagnosis Comments ECG 12-LEAD Routine 11/05/2024 2:42 PM EDT Paroxysmal atrial fibrillation (CMS/HCC) ECG 12-LEAD Routine 10/26/2024 4:55 PM EDT CVD (cardiovascular disease) MAGNESIUM Timed 10/10/2024 5:00 AM EST POTASSIUM Timed 10/10/2024 5:00 AM EST MAGNESIUM Timed 10/09/2024 5:22 AM EST POTASSIUM Timed 10/09/2024 5:22 AM EST XR ABDOMEN 1 VIEW STAT 10/08/2024 2:05 PM EST COMPREHENSIVE METABOLIC PANEL Timed 10/08/2024 3:38 AM EST COMPLETE BLOOD COUNT Timed 10/08/2024 3:38 AM EST MAGNESIUM Timed 10/08/2024 3:38 AM EST CALCIUM, IONIZED Timed 10/08/2024 3:38 AM EST XR CHEST 2 VIEWS Routine 10/07/2024 1:32 PM EST POTASSIUM Routine 10/07/2024 4:14 AM EST XR CHEST 1 VIEW STAT 10/06/2024 8:42 PM EST POCT GLUCOSE BLOOD Routine 10/06/2024 4:39 PM EST POCT GLUCOSE BLOOD Routine 10/06/2024 12:51 PM EST POCT GLUCOSE BLOOD Routine 10/06/2024 11:01 AM EST POCT GLUCOSE BLOOD Routine 10/06/2024 3:04 AM EST CBC WITH AUTO DIFFERENTIAL Timed 10/06/2024 2:56 AM EST MAGNESIUM Timed 10/06/2024 2:56 AM EST BASIC METABOLIC PANEL Timed 10/06/2024 2:56 AM EST CBC AND DIFFERENTIAL Timed 10/06/2024 2:56 AM EST POCT GLUCOSE BLOOD Routine 10/05/2024 10:13 PM EST POCT GLUCOSE BLOOD Routine 10/05/2024 4:45 PM EST POCT GLUCOSE BLOOD Routine 10/05/2024 1:33 PM EST POCT GLUCOSE BLOOD Routine 10/05/2024 11:03 AM EST POCT GLUCOSE BLOOD Routine 10/05/2024 8:05 AM EST TRANSTHORACIC ECHOCARDIOGRAM (TTE) LIMITED COLOR FLOW & DOPPLER STAT 10/05/2024 7:30 AM EST Aneurysm of ascending aorta without rupture (CMS/HCC) POCT BLOOD GAS, ARTERIAL Routine 025 6:33 AM EST POCT GLUCOSE BLOOD Routine 10/05/2024 6:27 AM EST ARTERIAL BLOOD GAS Routine 10/05/2024 6:19 AM EST ECG 12-LEAD Routine 10/05/2024 5:41 AM EST POCT GLUCOSE BLOOD Routine 10/05/2024 5:06 AM EST ACUTE KIDNEY INJURY SCORE Routine 10/05/2024 3:44 AM EST POCT GLUCOSE BLOOD Routine 10/05/2024 2:48 AM EST COMPLETE BLOOD COUNT Timed 10/05/2024 2:44 AM EST BASIC METABOLIC PANEL Timed 10/05/2024 2:44 AM EST MAGNESIUM Timed 10/05/2024 2:44 AM EST CALCIUM, IONIZED Timed 10/05/2024 2:44 AM EST PHOSPHORUS Timed 10/05/2024 2:44 AM EST ARTERIAL BLOOD GAS Timed 10/05/2024 2:44 AM EST MIXED VENOUS BLOOD GAS Timed 2:44 AM EST POCT GLUCOSE BLOOD Routine 10/04/2024 11:20 PM EST POCT GLUCOSE BLOOD Routine 10/04/2024 8:11 PM EST ACTIVATED PARTIAL THROMBOPLASTIN TIME Timed 10/04/2024 8:07 PM EST PROTHROMBIN TIME WITH INR Timed 10/04/2024 8:07 PM EST HEMOGLOBIN AND HEMATOCRIT Timed 10/04/2024 8:07 PM EST POTASSIUM Timed 10/04/2024 8:07 PM EST TRIGLYCERIDES Timed 10/04/2024 8:07 PM EST POCT GLUCOSE BLOOD Routine 10/04/2024 6:55 PM EST POCT GLUCOSE BLOOD Routine 10/04/2024 5:15 PM EST XR ABDOMEN 1 VIEW STAT 10/04/2024 4:29 PM EST XR CHEST 1 VIEW STAT 10/04/2024 4:29 PM EST POCT BLOOD GAS, ARTERIAL Routine 025 4:11 PM EST POCT GLUCOSE BLOOD Routine 10/04/2024 4:10 PM EST ECG 12-LEAD STAT 10/04/2024 3:50 PM EST POCT BLOOD GAS, ARTERIAL Routine 02/24/2 025 3:27 PM EST POCT GLUCOSE BLOOD Routine 10/04/2024 3:24 PM EST ARTERIAL BLOOD GAS STAT 10/04/2024 3:20 PM EST COMPLETE BLOOD COUNT STAT 10/04/2024 3:18 PM EST BASIC METABOLIC PANEL STAT 10/04/2024 3:18 PM EST CALCIUM, IONIZED STAT 10/04/2024 3:18 PM EST PHOSPHORUS STAT 10/04/2024 3:18 PM EST MIXED VENOUS BLOOD GAS STAT 3:18 PM EST ACTIVATED PARTIAL THROMBOPLASTIN TIME Timed 10/04/2024 3:18 PM EST PROTHROMBIN TIME WITH INR Timed 10/04/2024 3:18 PM EST POTASSIUM Timed 10/04/2024 3:18 PM EST VENTILATOR, ADULT Routine 10/04/2024 3:16 PM EST VENTILATOR, ADULT Routine 10/04/2024 3:16 PM EST RJ INTRA OP ONLY Routine 10/04/2024 2:09 PM EST Aneurysm of ascending aorta without rupture (CMS/HCC) POCT ARTERIAL BLOOD GAS CHEM4, HH Routine 10/04/2024 2:09 PM EST THROMBOELASTOGRAPH 6 GLOBAL HEMOSTASIS PANEL STAT 10/04/2024 2:08 PM EST Aortic root aneurysm TRANSFUSE PLATELETS Routine 10/04/2024 1:48 PM EST TRANSFUSE PLATELETS Routine 10/04/2024 1:37 PM EST PREPARE PLATELETS STAT 10/04/2024 12:32 PM EST POCT VENOUS BLOOD GAS CHEM4, HH Routine 10/04/2024 12:30 PM EST POCT ARTERIAL BLOOD GAS CHEM4, HH Routine 10/04/2024 11:41 AM EST POCT ARTERIAL BLOOD GAS CHEM4, HH Routine 10/04/2024 11:18 AM EST FIBRINOGEN STAT 10/04/2024 10:48 AM EST Aortic root aneurysm PLATELET COUNT STAT 10/04/2024 10:48 AM EST Aortic root aneurysm POCT ARTERIAL BLOOD GAS CHEM4, HH Routine 10/04/2024 10:45 AM EST POCT ARTERIAL BLOOD GAS CHEM4, HH Routine 10/04/2024 10:11 AM EST POCT ARTERIAL BLOOD GAS CHEM4, HH Routine 10/04/2024 9:40 AM EST POCT ARTERIAL BLOOD GAS CHEM4, HH Routine 10/04/2024 9:13 AM EST TISSUE EXAM Routine 10/04/2024 9:02 AM EST Aortic root aneurysm POCT ARTERIAL BLOOD GAS CHEM4, HH Routine 10/04/2024 8:46 AM EST POCT ARTERIAL BLOOD GAS CHEM4, HH Routine 10/04/2024 8:25 AM EST TH AN ENDOTRACHEAL(NO CHARGE) Routine 10/04/2024 8:01 AM EST ANESTHESIA PAC LINE PLACEMENT Routine 10/04/2024 8:00 AM EST NM ANESTHESIA CENTRAL LINE CORDIS DOUBLE Routine 10/04/2024 7:59 AM EST ANESTHESIA CENTRAL VENOUS LINE PLACEMENT Routine 10/04/2024 7:59 AM EST POCT ARTERIAL BLOOD GAS CHEM4, HH Routine 10/04/2024 7:40 AM EST ECHOCARDIOGRAM TRANSESOPHAGEAL 10/04/2024 6:57 AM EST Aortic root aneurysm Case Notes Aortic root Valve Sparing NM ASCENDING AORTA GRAFT W CP BYPASS W AORTIC ROOT REPL CORONARY RECONSTR 10/04/2024 6:57 AM EST Aortic root aneurysm Case Notes Aortic root Valve Sparing POCT GLUCOSE BLOOD Routine 10/04/2024 4:04 AM EST TYPE AND SCREEN STAT 10/03/2024 4:26 PM EST ACTIVATED PARTIAL THROMBOPLASTIN TIME STAT 10/03/2024 4:26 PM EST PROTHROMBIN TIME WITH INR STAT 10/03/2024 4:26 PM EST PREPARE RBC Routine 10/03/2024 3:47 PM EST OXYGEN THERAPY, ADULT Routine 10/03/2024 3:46 PM EST OXYGEN THERAPY, ADULT Routine 10/03/2024 3:46 PM EST ECG 12-LEAD Routine 10/03/2024 3:37 PM EST HC SPIROMETRY Routine 09/23/2024 11:09 AM EST Preop cardiovascular exam ECG 12-LEAD Routine 09/23/2024 8:43 AM EST Pre-op testing NICHOLAS URINE CULTURE TUBE Routine 09/23/19 8:15 AM EST Pre-op testing URINALYSIS WITH REFLEX MICROSCOPIC AND CULTURE Routine 09/23/2024 8:15 AM EST Pre-op testing CBC WITH AUTO DIFFERENTIAL Routine 09/23/2024 8:15 AM EST Pre-op testing URINALYSIS WITH REFLEX MICROSCOPIC AND CULTURE Routine 09/23/2024 8:15 AM EST Pre-op testing TYPE AND SCREEN Routine 09/23/2024 8:15 AM EST Pre-op testing PROTHROMBIN TIME WITH INR Routine 09/23/2024 8:15 AM EST Pre-op testing PREALBUMIN Routine 09/23/2024 8:15 AM EST Pre-op testing LIPID PANEL WITH REFLEX TO DIRECT LDL Routine 09/23/2024 8:15 AM EST Pre-op testing HEPATIC FUNCTION PANEL Routine 8:15 AM EST Pre-op testing HEMOGLOBIN A1C Routine 09/23/2024 8:15 AM EST Pre-op testing CBC AND DIFFERENTIAL Routine 09/23/2024 8:15 AM EST Pre-op testing B-TYPE NATRIURETIC PEPTIDE Routine 09/23/2024 8:15 AM EST Pre-op testing BASIC METABOLIC PANEL Routine 09/23/2024 8:15 AM EST Pre-op testing ACTIVATED PARTIAL THROMBOPLASTIN TIME Routine 09/23/2024 8:15 AM EST Pre-op testing LEFT HEART CATH / CORONARY ANGIOGRAPHY Routine 09/10/2024 10:13 AM EST CVD (cardiovascular disease) PROCEDURAL ECG Routine 09/10/2024 7:[address] ANGIO CHEST WO AND/OR W CONTRAST Routine 09/01/2024 3:28 PM EST Aortic root dilatation (CMS/HCC) from Last 3 Months Results * ECG 12 lead (11/05/2024 2:42 PM EDT) Only the most recent of6 resultswithin the time period is included. Narrative Patrizia Burroughs NP - 11/05/2024 2:42 PM EDT Atrial fibrillation 113 bpm us Patrizia Burroughs NP ECG ORDERABLES Final Result * (ABNORMAL) Potassium (10/10/2024 5:00 AM EST) Only the most recent of5 resultswithin the time period is included. Potassium 3.4(L) 3.5 - 5.1 mmol/L LAB CHEMISTRY METHOD 10/10/2024 6:07 AM EST [facility] Blood Venous blood specimen / Unknown Venipuncture / Unknown 10/10/2024 5:00 AM EST 10/10/2024 5:33 AM EST Fred FIGUEROA LAB BLOOD ORDERABLES Final Resul t Performing Organization Address City/[facility]/ZIP Co de Phone Number [facility] [address] [place] [address], [place] [phone] * Magnesium (10/10/2024 5:00 AM EST) Only the most recent of5 resultswithin the time period is included. Magnesium 2.3 1.7 - 2.8 mg/dL LAB CHEMISTRY METHOD 10/10/2024 6:07 AM EST [facility] Blood Venous blood specimen / Unknown Venipuncture / Unknown 10/10/2024 5:00 AM EST 10/10/2024 5:33 AM EST Fred FIGUEROA LAB BLOOD ORDERABLES Final Resul t [facility] [address] [place] [address], [place] [phone] * XR Abdomen 1 View (10/08/2024 2:05 PM EST) Only the most recent of2 resultswithin the time period is included. Anatomical Region Laterality Modality Body Radiographic Rhona ging 10/08/2024 2:38 PM EST Impressions 10/08/2024 2:40 PM EST No acute abdominal abnormality identified. ??Nonobstructive bowel gas pattern. Report reviewed and signed by : Dr. Cosme Man on 10/08/2024 2:40 PM. Workstation Name - [id number] -------- FINAL REPORT -------- Dictated By: Cosme Man Dictated Date: 10/08/2024 14:38 ET Assigned Physician: Cosme Man Reviewed and Electronically Signed By: Cosme Man Signed Date: 10/08/2024 14:40 ET Workstation ID: [id number] Transcribed By: Self Edit Transcribed Date: 10/08/2024 14:38 ET Narrative 10/08/2024 2:40 PM EST RADIOGRAPH OF THE ABDOMEN CLINICAL HISTORY: OTHER Abdominal Distension TECHNIQUE: Supine view of the abdomen. COMPARISON: 10/04/2024 FINDINGS: Median sternotomy wires. ??Colonic stool burden appears to be within normal limits. ??Nonobstructive bowel gas pattern. Procedure Note Cosme Man MD - 10/08/2024 RADIOGRAPH OF THE ABDOMEN CLINICAL HISTORY: OTHER Abdominal Distension TECHNIQUE: Supine view of the abdomen. COMPARISON: 10/04/2024 FINDINGS: Median sternotomy wires. Colonic stool burden appears to be within normallimits. Nonobstructive bowel gas pattern. IMPRESSION: No acute abdominal abnormality identified. Nonobstructive bowel gaspattern. Report reviewed and signed by : Dr. Cosme Man on 10/08/2024 2:40 PM.Workstation Name - [id number] -------- FINAL REPORT -------- Dictated By: Cosme Man Dictated Date: 10/08/2024 14:38 ET Assigned Physician: Cosme Man Reviewed and Electronically Signed By: Cosme Man Signed Date: 10/08/2024 14:40 ET Workstation ID: [id number] Transcribed By: Self Edit Transcribed Date: 10/08/2024 14:38 ET Chemo FIGUEROA IMG XR PROCEDURES Final Result * (ABNORMAL) Complete blood count (10/08/2024 3:38 AM EST) Only the most recent of3 resultswithin the time period is included. WBC 9.1 4.0 - 10.5 K/mcL LAB HEMETOLOGY METHOD 10/08/2024 4:17 AM [facility] RBC 2.69(L) 4.70 - 6.00 M/mcL LAB HEMETOLOGY METHOD 10/08/2024 4:17 AM [facility] Hemoglobin 8.6(L) 13.5 - 18.0 g/dL LAB HEMETOLOGY METHOD 10/08/2024 4:17 AM [facility] Hematocrit 25.2(L) 40.0 - 54.0 % LAB HEMETOLOGY METHOD 10/08/2024 4:17 AM [facility] MCV 93.7 78.0 - 100.0 FL LAB HEMETOLOGY METHOD 10/08/2024 4:17 AM [facility] [facility] MCH 32.1 25.0 - 33.0 pcg LAB HEMETOLOGY METHOD 10/08/2024 4:17 AM [facility] MCHC 34.2 32.0 - 36.0 g/dL LAB HEMETOLOGY METHOD 10/08/2024 4:17 AM [facility] RDW 12.2 12.1 - 17.7 % LAB HEMETOLOGY METHOD 10/08/2024 4:17 AM [facility] Platelets 180 150 - 450 K/mcL LAB HEMETOLOGY METHOD 10/08/2024 4:17 AM [facility] MPV 8.6 7.4 - 11.4 FL LAB HEMETOLOGY METHOD 10/08/2024 4:17 AM [facility] Blood Venous blood specimen / Unknown Venipuncture / Unknown 10/08/2024 3:38 AM EST 10/08/2024 3:57 AM EST us Kajal FIGUEROA LAB BLOOD ORDERABLES F inal Result [facility] [address] [place] [address], [place] [phone] * (ABNORMAL) Calcium, ionized (10/08/2024 3:38 AM EST) Only the most recent of3 resultswithin the time period is included. Calcium Ionized 1.18(L) 1.19 - 1.35 mg/dL LAB BLOOD GAS METHOD 10/08/2024 4:19 AM EST [facility] Blood Venous blood specimen / Unknown Venipuncture / Unknown 10/08/2024 3:38 AM EST 10/08/2024 3:52 AM EST Kajal FIGUEROA LAB BLOOD ORDERABLES F inal Result [facility] [address] [place] [address], [place] [phone] * (ABNORMAL) Comprehensive metabolic panel (10/08/2024 3:38 AM EST) Pathologist [facility] Sodium 136 135 - 145 mmol/L LAB CHEMISTRY METHOD 10/08/2024 4:41 AM [facility] Potassium 3.7 3.5 - 5.1 mmol/L LAB CHEMISTRY METHOD 10/08/2024 4:41 AM EST [facility] Chloride 99 98 - 107 mmol/L LAB CHEMISTRY METHOD 10/08/2024 4:41 AM EST [facility] CO2 28 24 - 32 mmol/L LAB CHEMISTRY METHOD 10/08/2024 4:41 AM EST [facility] Anion Gap 9 5 - 14 LAB CHEMISTRY METHOD 10/08/2024 4:41 AM [facility] Glucose 109 70 - 199 mg/dL LAB CHEMISTRY METHOD 10/08/2024 4:41 AM EST [facility] BUN 24(H) 9 - 20 mg/dL LAB CHEMISTRY METHOD 10/08/2024 4:41 AM [facility] Creatinine 0.90 0.70 - 1.30 mg/dL LAB CHEMISTRY METHOD 10/08/2024 4:41 AM [facility] eGFR 101 >=60 mL/min/1. 73m2 LAB CHEMISTRY METHOD 10/08/2024 4:41 AM [facility] Comment:Calculation based on the??Chronic Kidney Disease Epidemiology Collaboration (CKD-EPI) equation refit??without adjustment for race. BUN/Creatinine Ratio 26.7(H) 12.0 - 20.0 LAB CHEMISTRY METHOD 10/08/2024 4:41 AM [facility] Calcium 8.6 8.4 - 10.2 mg/dL LAB CHEMISTRY METHOD 10/08/2024 4:41 AM [facility] AST (SGOT) 36 5 - 40 unit/L LAB CHEMISTRY METHOD 10/08/2024 4:41 AM [facility] ALT (SGPT) 29 7 - 52 unit/L LAB CHEMISTRY METHOD 10/08/2024 4:41 AM [facility] Alkaline Phosphatase 76 34 - 104 unit/L LAB CHEMISTRY METHOD 10/08/2024 4:41 AM [facility] Total Protein 5.9(L) 6.4 - 8.5 g/dL LAB CHEMISTRY METHOD 10/08/2024 4:41 AM [facility] Albumin 3.5 3.5 - 5.0 g/dL LAB CHEMISTRY METHOD 10/08/2024 4:41 AM [facility] Total Bilirubin 1.5(H) 0.3 - 1.0 mg/dL LAB CHEMISTRY METHOD 10/08/2024 4:41 AM [facility] Blood Venous blood specimen / Unknown Venipuncture / Unknown 10/08/2024 3:38 AM EST 10/08/2024 3:57 AM EST Fred FIGUEROA LAB BLOOD ORDERABLES Final Resul t [facility] ([facility]) [facility] [address] [place] [address], [place] [phone] * XR Chest 2 Views (10/07/2024 1:32 PM EST) Anatomical Region Laterality Modality Body Radiographic Rhona ging 10/07/2024 3:22 PM EST Impressions 10/07/2024 3:27 PM EST Rule out small effusions, otherwise no change from prior examination. Report reviewed and signed by : Dr. Servando Castrejon on 10/07/2024 3:27 PM. Workstation Name - [id number] -------- FINAL REPORT -------- Dictated By: Servando Castrejon Dictated Date: 10/07/2024 15:22 ET Assigned Physician: Servando Castrejon Reviewed and Electronically Signed By: Servando Castrejon Signed Date: 10/07/2024 15:27 ET Workstation ID: [id number] Transcribed By: Self Edit Transcribed Date: 10/07/2024 15:22 ET Narrative 10/07/2024 3:27 PM EST 2 view chest. Comparison made to 10/06/2024 CLINICAL INDICATION: Postoperative FINDINGS: Cardiomegaly. ??Sternotomy changes. ??Small pleural effusions suggested posteriorly on lateral view. Procedure Note Servando Castrejon MD - 10/07/2024 2 view chest. Comparison made to 10/06/2024 CLINICAL INDICATION: Postoperative FINDINGS: Cardiomegaly. Sternotomy changes. Small pleural effusions suggestedposteriorly on lateral view. IMPRESSION: Rule out small effusions, otherwise no change from prior examination. Report reviewed and signed by : Dr. Servando Castrejon on 10/07/2024 3:27 PM.Workstation Name - [id number] -------- FINAL REPORT -------- Dictated By: Servando Castrejon Dictated Date: 10/07/2024 15:22 ET Assigned Physician: Servando Castrejon Reviewed and Electronically Signed By: Servando Castrejon Signed Date: 10/07/2024 15:27 ET Workstation ID: [id number] Transcribed By: Self Edit Transcribed Date: 10/07/2024 15:22 ET us Obinna FIGUEROA IMG XR PROCEDURES Final Result * XR Chest 1 View (10/06/2024 8:42 PM EST) Only the most recent of2 resultswithin the time period is included. Anatomical Region Laterality Modality Body Radiographic Rhona ging 10/06/2024 9:28 PM EST Impressions 10/06/2024 9:29 PM EST FINDINGS/IMPRESSION: Endotracheal and enteric tubes have been removed. ??Clear lungs. ??Cardiomegaly. ??Sternotomy changes. Report reviewed and signed by : Dr. Devin Mcmahan on 10/06/2024 9:29 PM. Workstation Name - [id number] -------- FINAL REPORT -------- Dictated By: Devin Mcmahan Dictated Date: 10/06/2024 21:28 ET Assigned Physician: Devin Mcmahan Reviewed and Electronically Signed By: Devin Mcmahan Signed Date: 10/06/2024 21:29 ET Workstation ID: [id number] Transcribed By: Self Edit Transcribed Date: 10/06/2024 21:28 ET Narrative 10/06/2024 9:29 PM EST XR CHEST 1 VIEW HISTORY:53 years Male ??hypoxia COMPARISON:10/04/2024 Procedure Note Devin Mcmahan MD - 10/06/2024 XR CHEST 1 VIEW HISTORY:53 years Male hypoxia COMPARISON:10/04/2024 IMPRESSION: FINDINGS/IMPRESSION: Endotracheal and enteric tubes have been removed. Clear lungs.Cardiomegaly. Sternotomy changes. Report reviewed and signed by : Dr. Devin Mcmahan on 10/06/2024 9:29 PM.Workstation Name - [id number] -------- FINAL REPORT -------- Dictated By: Devin Mcmahan Dictated Date: 10/06/2024 21:28 ET Assigned Physician: Devin Mcmahan Reviewed and Electronically Signed By: Devin Mcmahan Signed Date: 10/06/2024 21:29 ET Workstation ID: [id number] Transcribed By: Self Edit Transcribed Date: 10/06/2024 21:28 ET us Kajal FIGUEROA IMG XR PROCEDURES Abimbola l Result * POCT Glucose, blood (10/06/2024 4:39 PM EST) Only the most recent of19 resultswithin the time period is included. Pathologist [facility] Glucose POCT 100 70 - 199 mg/dL 10/06/2024 4:39 PM EST [facility] Comment: Fasting Reference Range: ? 70-99 mg/dL Non-Fasting Reference Range: 70-199 mg/dL Blood Capillary blood specimen / Unknown 10/06/2024 4:39 PM EST 10/06/2024 4:40 PM EST Kit Gonzalez MD LAB POINT OF CAR E TEST DOCKED DEVICE UNSOLICITED RESULTS Final Result [facility] [address] [place] [address], [place] [phone] * (ABNORMAL) CBC auto differential (10/06/2024 2:56 AM EST) Only the most recent of2 resultswithin the time period is included. WBC 11.0(H) 4.0 - 10.5 K/mcL LAB HEMETOLOGY METHOD 10/06/2024 3:25 AM EST [facility] RBC 2.93(L) 4.70 - 6.00 M/mcL LAB HEMETOLOGY METHOD 10/06/2024 3:25 AM EST [facility] Hemoglobin 9.3(L) 13.5 - 18.0 g/dL LAB HEMETOLOGY METHOD 10/06/2024 3:25 AM EST [facility] Hematocrit 27.3(L) 40.0 - 54.0 % LAB HEMETOLOGY METHOD 10/06/2024 3:25 AM EST [facility] MCV 93.4 78.0 - 100.0 FL LAB HEMETOLOGY METHOD 10/06/2024 3:25 AM EST [facility] MCH 31.8 25.0 - 33.0 pcg LAB HEMETOLOGY METHOD 10/06/2024 3:25 AM [facility] MCHC 34.0 32.0 - 36.0 g/dL LAB HEMETOLOGY METHOD 10/06/2024 3:25 AM [facility] RDW 12.6 12.1 - 17.7 % LAB HEMETOLOGY METHOD 10/06/2024 3:25 AM [facility] Platelets 119(L) 150 - 450 K/mcL LAB HEMETOLOGY METHOD 10/06/2024 3:25 AM [facility] MPV 9.0 7.4 - 11.4 FL LAB HEMETOLOGY METHOD 10/06/2024 3:25 AM [facility] Neutrophils Relative 83.5(H) 44.0 - 74.0 % LAB HEMETOLOGY METHOD 10/06/2024 3:25 AM [facility] Lymphocytes Relative 4.8(L) 20.0 - 48.0 % LAB HEMETOLOGY METHOD 10/06/2024 3:25 AM [facility] Monocytes Relative 11.5 2.0 - 12.0 % LAB HEMETOLOGY METHOD 10/06/2024 3:25 AM [facility] Eosinophils Relative 0.0 0.0 - 6.0 % LAB HEMETOLOGY METHOD 10/06/2024 3:25 AM [facility] Basophils Relative 0.2 0.0 - 2.0 % LAB HEMETOLOGY METHOD 10/06/2024 3:25 AM [facility] Neutrophils Absolute 9.20(H) 1.80 - 7.80 K/mcL LAB HEMETOLOGY METHOD 10/06/2024 3:25 AM EST [facility] Lymphocytes Absolute 0.50(L) 1.00 - 3.20 K/[facility] LAB HEMETOLOGY METHOD 10/06/2024 3:25 AM EST [facility] Monocytes Absolute 1.30(H) 0.00 - 0.80 K/mcL LAB HEMETOLOGY METHOD 10/06/2024 3:25 AM EST [facility] Eosinophils Absolute 0.00 0.00 - 0.50 K/[facility] LAB HEMETOLOGY METHOD 10/06/2024 3:25 AM EST [facility] Basophils Absolute 0.00 0.00 - 0.20 K/[facility] LAB HEMETOLOGY METHOD 10/06/2024 3:25 AM EST [facility] Blood Venous blood specimen / Unknown Venipuncture / Unknown 10/06/2024 2:56 AM EST 10/06/2024 3:06 AM EST us Sj FIGUEROA LAB BLOOD ORDERABLES Final Result [facility] [address] [place] [address], * (ABNORMAL) Basic metabolic panel (10/06/2024 2:56 AM EST) Only the most recent of4 resultswithin the time period is included. Sodium 134(L) 135 - 145 mmol/L LAB CHEMISTRY METHOD 10/06/2024 3:38 AM EST [facility] Potassium 4.0 3.5 - 5.1 mmol/L LAB CHEMISTRY METHOD 10/06/2024 3:38 AM EST [facility] Chloride 103 98 - 107 mmol/L LAB CHEMISTRY METHOD 10/06/2024 3:38 AM EST [facility] CO2 25 24 - 32 mmol/L LAB CHEMISTRY METHOD 10/06/2024 3:38 AM EST [facility] Anion Gap 6 5 - 14 LAB CHEMISTRY METHOD 10/06/2024 3:38 AM EST [facility] Glucose 138(H) 70 - 99 mg/dL LAB CHEMISTRY METHOD 10/06/2024 3:38 AM [facility] BUN 15 9 - 20 mg/dL LAB CHEMISTRY METHOD 10/06/2024 3:38 AM [facility] Creatinine 0.80 0.70 - 1.30 mg/dL LAB CHEMISTRY METHOD 10/06/2024 3:38 AM EST [facility] eGFR 105 >=60 mL/min/1. 73m2 LAB CHEMISTRY METHOD 10/06/2024 3:38 AM EST [facility] Comment:Calculation based on the??Chronic Kidney Disease Epidemiology Collaboration (CKD-EPI) equation refit??without adjustment for race. BUN/Creatinine Ratio 18.8 12.0 - 20.0 LAB CHEMISTRY METHOD 10/06/2024 3:38 AM EST [facility] Calcium 7.9(L) 8.4 - 10.2 mg/dL LAB CHEMISTRY METHOD 10/06/2024 3:38 AM EST [facility] Blood Venous blood specimen / Unknown Venipuncture / Unknown 10/06/2024 2:56 AM EST 10/06/2024 3:06 AM EST us Sj FIGUEROA LAB BLOOD ORDERABLES Final Result [facility] [address] [place] [address], [place] [phone] * TRANSTHORACIC ECHOCARDIOGRAM (TTE) LIMITED COLOR FLOW & DOPPLER (10/05/2024 7:30 AM EST) Left Atrium Major [place] 6.1 cm CV PACS LA Area Sys (A4C) 22 cm2 CV PACS AV Mean Gradient 5 mmHg CV PACS Ao VTI 25.8 cm CV PACS AV Peak Jean-Pierre 1.4 m/s CV PACS AV Peak Gradient 8 mmHg CV PACS AV Area Continuity Equation 2.9 cm2 CV PACS AV Area Peak Velocity 3.1 cm2 CV PACS Ascending Aorta 3.0 cm CV PACS LVOT Diameter 2.2 cm CV PACS LVOT Mean Grad 3 mmHg CV PACS LVOT Peak VTI 19.9 cm CV PACS LVOT Mean Jean-Pierre 0.8 m/s CV PACS LVOT Peak Jean-Pierre 1.1 m/s CV PACS LVOT Peak Gradient 5 mmHg CV PACS MV E' Tissue Velocity Lateral 7 cm/s CV PACS MV E' Tissue Velocity Septal 7 cm/s CV PACS LVOT Area 3.8 cm2 CV PACS LVOT Stroke Volume 76 mL CV PACS MV Deceleration [place] 4.8 m/s2 CV PACS E Wave Deceleration Time 180 119 - 242 ms CV PACS MV PHT 53 ms CV PACS MV Peak A Jean-Pierre 0.41 m/s CV PACS MV Peak E Jean-Pierre 0.87 m/s CV PACS MV Area PHT 4.2 cm2 CV PACS RV S' 4 cm/s CV PACS TR Peak Velocity 2.11 m/s CV PACS TR Peak Gradient 18 mmHg CV PACS E/E' Ratio Septal 12 CV PACS E/E' Ratio Averaged 12 CV PACS LVOT:AV VTI Index 0.77 CV PACS LVOT flow 304 mL/s CV PACS AV Velocity Ratio 0.79 CV PACS E/A Ratio 2.1 CV PACS E/E' Ratio Lateral 12 CV PACS Anatomical Region Laterality Modality Ultrasound Narrative 10/05/2024 10:07 AM EST ?Left ventricular systolic function is in the normal range with an ejection fraction of 55-60%. ?Left ventricle wall thickness is normal. ?Right ventricular systolic function is mildly reduced. ?There is mild aortic valve regurgitation with a eccentrically directed jet. ?This is a limited and technically difficult study. Left Ventricle Left ventricle was not well visualized. Wall thickness is normal. Systolic function is normal with an ejection fraction of 55-60%. Regional LV wall motion cannot be accurately assessed. Indeterminate diastolic function. Right Ventricle Right ventricle was not well visualized. Systolic function is mildly reduced. A pacer wire is present in the right ventricle. Left Atrium Left atrium cavity size is normal. Left atrium volume index is normal. Right Atrium Right atrium was not well visualized. IVC/SVC Inferior vena cava was not well visualized. Mitral Valve Mitral valve structure is normal. There is no significant mitral valve regurgitation. There is no evidence of mitral valve stenosis. Tricuspid Valve The tricuspid valve was not well visualized. There is trace regurgitation. There is no evidence of tricuspid valve stenosis. The right ventricular systolic pressure is normal. Aortic Valve Number of aortic valve cusps cannot be determined. There is mild regurgitation with a eccentrically directed jet. There is no evidence of aortic valve stenosis. Pulmonic Valve The pulmonic valve was not well visualized. No significant pulmonic valve regurgitation. There is no evidence of pulmonic valve stenosis. 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 Pericardium Pericardium appears normal. There is no pericardial effusion. Study Details Overall the study quality was technically difficult. Study was difficult due to: patient body habitus and procedure performed with the patient in a supine position. This is a limited study due to surgeon directing that echo is no longer needed. Wall Scoring Baseline Score Index: 1.00 The left ventricular wall motion is normal. us Kajal FIGUEROA CV ECHO PROCEDURES Fin al Result * (ABNORMAL) POCT Arterial blood gas (10/05/2024 6:33 AM EST) Only the most recent of3 resultswithin the time period is included. Sample Site POCT ART 10/06/2024 8:47 PM [facility] pH Arterial POCT 7.44 7.35 - 7.45 10/06/2024 8:47 PM [facility] pCO2 Arterial POCT 34.4(L) 35 - 45 mmHg 10/06/2024 8:47 PM [facility] pO2 Arterial POCT 105 80 - 105 mmHg 10/06/2024 8:47 PM [facility] HCO3 Arterial POCT 23.5 22.0 - 26.0 mmol/L 10/06/2024 8:47 PM [facility] Base Excess Arterial POCT -1(L) 0 - 2 mmol/L 10/06/2024 8:47 PM [facility] SO2 Arterial POCT 98 95 - 98 % 10/06/2024 8:47 PM [facility] Blood Arterial blood specimen / Unknown 10/05/2024 6:33 AM EST 10/06/2024 8:49 PM EST us Kit Gonzalez MD LAB POINT OF CAR E TEST DOCKED DEVICE UNSOLICITED RESULTS Final Result [facility] [address] [place] [address], [place] [phone] * (ABNORMAL) Arterial blood gas (10/05/2024 6:19 AM EST) Only the most recent of3 resultswithin the time period is included. pH, Arterial 7.42 7.35 - 7.45 pH LAB BLOOD GAS METHOD 10/05/2024 6:47 AM [facility] pCO2, Arterial 36 35 - 45 mmHg LAB BLOOD GAS METHOD 10/05/2024 6:47 AM [facility] pO2, Arterial 153(H) 80 - 105 mmHg LAB BLOOD GAS METHOD 10/05/2024 6:47 AM [facility] HCO3, Arterial 24.4 22.0 - 26.0 mmol/L LAB BLOOD GAS METHOD 10/05/2024 6:47 AM [facility] O2 Sat, Arterial 99.7(H) 95.0 - 98.0 % LAB BLOOD GAS METHOD 10/05/2024 6:47 AM [facility] Base Excess, Arterial -0.7(L) 0.0 - 2.0 mmol/L LAB BLOOD GAS METHOD 10/05/2024 6:47 AM [facility] Blood Arterial blood specimen / Unknown Arterial Puncture / Unknown 10/05/2024 6:19 AM EST 10/05/2024 6:39 AM EST us Kit Gonzalez MD LAB BLOOD ORDERABLES Fin al Result [facility] [address] [place] [address], [place] [phone] * (ABNORMAL) Acute kidney injury score (10/05/2024 3:44 AM EST) Pathologist [facility] JANNA Risk Score 0.93(H) <=0.31 LAB MICROBIOLOGY METHOD 10/05/2024 5:49 AM EST [facility] Urine Urine specimen obtained by clean catch procedure / Unknown Non-blood Collection / Unknown 10/05/2024 3:44 AM EST 10/05/2024 3:51 AM EST Narrative [facility] - 10/05/2024 5:49 AM EST Intended use patients 21 years of age or older with Nephrocheck JANNA Risk Scores of less than or equal to 0.30 are at a lower risk of developing moderate to severe JANNA within 12 hours of assessment than those with JANNA Risk Scores of > 0.30. Sj FIGUEROA LAB URINE ORDERABLES Final Result Performing Organization Address [facility] Co de Phone Number [facility] [address] [place] [address], [place] [phone] * Mixed venous blood gas (10/05/2024 2:44 AM EST) Only the most recent of2 resultswithin the time period is included. Pathologist [facility] pH, Mixed Venous Blood 7.38 7.35 - 7.45 pH LAB BLOOD GAS METHOD 10/05/2024 3:28 AM EST [facility] Carbon Dioxide Mixed Venous 43 mmHg LAB BLOOD GAS METHOD 10/05/2024 3:28 AM EST [facility] Comment:No established refer ence range. PO2 Mixed Venous 34 mmHg LAB BLOOD GAS METHOD 10/05/2024 3:28 AM EST [facility] Comment:No established refer ence range. Bicarbonate Mixed Venous 24.0 mmol/L LAB BLOOD GAS METHOD 10/05/2024 3:28 AM EST [facility] Comment:No established refer ence range. Oxygen Saturation Mixed Venous 66.6 % LAB BLOOD GAS METHOD 10/05/2024 3:28 AM EST [facility] Comment:No established refer ence range. Base Excess Mixed Venous 0.0 mmol/L LAB BLOOD GAS METHOD 10/05/2024 3:28 AM EST [facility] Comment:No established refer ence range. Blood Mixed venous blood specimen / Unknown Arterial Line / Unknown 10/05/2024 2:44 AM EST 10/05/2024 3:00 AM EST us Sj FIGUEROA LAB BLOOD ORDERABLES Final Result [facility] [address] [place] [address], [place] [phone] * Phosphorus (10/05/2024 2:44 AM EST) Only the most recent of2 resultswithin the time period is included. Pathologist [facility] Phosphorus 3.8 2.5 - 4.5 mg/dL LAB CHEMISTRY METHOD 10/05/2024 3:56 AM EST [facility] Blood Venous blood specimen / Unknown Venipuncture / Unknown 10/05/2024 2:44 AM EST 10/05/2024 2:59 AM EST us Sj FIGUEROA LAB BLOOD ORDERABLES Final Result [facility] [address] [place] [address], [place] [phone] * (ABNORMAL) Hemoglobin and hematocrit (10/04/2024 8:07 PM EST) Hemoglobin 11.1(L) 13.5 - 18.0 g/dL LAB HEMETOLOGY METHOD 10/04/2024 8:25 PM EST [facility] Hematocrit 31.1(L) 40.0 - 54.0 % LAB HEMETOLOGY METHOD 10/04/2024 8:25 PM EST [facility] Blood Venous blood specimen / Unknown Venipuncture / Unknown 10/04/2024 8:07 PM EST 10/04/2024 8:18 PM EST us Sj FIGUEROA LAB BLOOD ORDERABLES Final Result Performing Organization Address City/[facility]/ZIP Co de Phone Number [facility] [address] [place] [address], [place] [phone] * Activated partial thromboplastin time (10/04/2024 8:07 PM EST) Only the most recent of4 resultswithin the time period is included. aPTT 30.2 25.0 - 37.0 sec LAB COAGULATION METHOD 10/04/2024 9:02 PM EST [facility] Blood Venous blood specimen / Unknown Venipuncture / Unknown 10/04/2024 8:07 PM EST 10/04/2024 8:18 PM EST us Sj FIGUEROA LAB BLOOD ORDERABLES Final Result [facility] [address] [place] [address], [place] [phone] * Prothrombin time with INR (10/04/2024 8:07 PM EST) Only the most recent of4 resultswithin the time period is included. Protime 12.3 10.5 - 13.3 sec LAB COAGULATION METHOD 10/04/2024 9:02 PM EST [facility] INR 1.0 0.8 - 1.1 LAB COAGULATION METHOD 10/04/2024 9:02 PM EST [facility] Blood Venous blood specimen / Unknown Venipuncture / Unknown 10/04/2024 8:07 PM EST 10/04/2024 8:18 PM EST Narrative [facility] - 10/04/2024 9:02 PM EST Std. Therapy ?2.0-3.0 INR High Dose Therapy 3.0-4.5 INR Ranges may vary depending on clinical indications and protocol. Sj FIGUEROA LAB BLOOD ORDERABLES Final Result Performing Organization Address City/[facility]/ZIP Co de Phone Number [facility] [address] [place] [address], [place] [phone] * Triglyceride Monitoring (10/04/2024 8:07 PM EST) Triglycerides 114 <150 mg/dL LAB CHEMISTRY METHOD 10/04/2024 8:50 PM EST [facility] Blood Venous blood specimen / Unknown Venipuncture / Unknown 10/04/2024 8:07 PM EST 10/04/2024 8:18 PM EST Sj FIGUEROA LAB BLOOD ORDERABLES Final Result Performing Organization Address City/[facility]/ZIP Co de Phone Number [facility] [address] [place] [address], [place] [phone] * (ABNORMAL) POCT Arterial blood gas, NA, K, ICAL, GLU, HH (10/04/2024 2:09 PM EST) Only the most recent of10 resultswithin the time period is included. pH Arterial POCT 7.26(L) 7.35 - 7.45 10/04/2024 2:11 PM EST [facility] pH Temp Corrected Arterial, POCT 7.26(L) 7.35 - 7.45 10/04/2024 2:11 PM EST [facility] pCO2 Arterial POCT 44.9 35 - 45 mmHg 10/04/2024 2:11 PM [facility] pCO2 Temp Control Arterial, POCT 44.9 35 - 45 mmHg 10/04/2024 2:11 [facility] pO2 Arterial POCT 282(H) 80 - 105 mmHg 10/04/2024 2:11 PM [facility] pO2 Temp Corrected Arterial, POCT 282(HH) 35 - 45 mmHg 10/04/2024 2:11 PM [facility] HCO3 Arterial POCT 20.3(L) 22.0 - 26.0 mmol/L 10/04/2024 2:11 PM [facility] Base Excess Arterial POCT -7(L) 0 - 2 mmol/L 10/04/2024 2:11 PM [facility] SO2 Arterial POCT 100(H) 95 - 98 % 10/04/2024 2:11 PM [facility] FIO2 POCT 80.0 No Established Reference Range % 10/04/2024 2:11 PM [facility] Sodium Arterial POCT 140 135 - 145 mmol/L 10/04/2024 2:11 PM [facility] Potassium Arterial POCT 3.7 3.5 - 5.1 mmol/L 10/04/2024 2:11 PM [facility] Ionized Calcium, Arterial POCT 1.12(L) 1.19 - 1.35 mmol/L 10/04/2024 2:11 PM [facility] Glucose Arterial POCT 184 70 - 199 mg/dL 10/04/2024 2:11 PM [facility] Comment: Fasting Reference Range: ? 70-99 mg/dL Non-Fasting Reference Range: 70-199 mg/dL Hemoglobin Arterial POCT 10.2(L) 13.5 - 18.0 g/dL 10/04/2024 2:11 PM EST [facility] Hematocrit Arterial POCT 30(L) 40 - 54 % 10/04/2024 2:11 PM EST [facility] Patient Temperature POCT 37.0 C 10/04/2024 2:11 PM EST [facility] Blood Arterial blood specimen / Unknown 10/04/2024 2:09 PM EST 10/04/2024 2:12 PM EST us Kit Gonzalez MD LAB POINT OF CAR E TEST DOCKED DEVICE UNSOLICITED RESULTS Final Result [facility] [address] [place] [address], [place] [phone] * (ABNORMAL) Intraoperative RJ (10/04/2024 2:09 PM EST) Aortic Arch 3.2 cm CV PACS Ascending Aorta 3.8 cm CV PACS Descending Aorta 2.6 cm CV PACS Aortic Sintotubular Junction 3.9 cm CV PACS Aortic Sinus Valsalva 4.7 cm CV PACS LVIDD 5.1 4.2 - 5.8 cm CV PACS LVOT Diameter 2.0 cm CV PACS LVPWD 1.1(A) 0.6 - 1.0 cm CV PACS LVOT Area 3.1 cm2 CV PACS Relative Wall Thickness ratio 0.43 CV PACS Anatomical Region Laterality Modality Ultrasound Narrative 10/04/2024 6:55 PM EST Transesophageal Echo probe placed with ease and atraumatically. Probe removed at the end of the case with no issues. Pre Cardiopulmonary Bypass: - The left ventricle is of normal size has normal ??function. By visual estimate the ejection fraction is 55-60%. There is mild left ventricular hypertrophy. - There are no regional wall motion abnormalities appreciated. - The right ventricle is of normal size and has normal ??function. - There is no clot appreciated in the left atrial appendage by 2D imaging and left atrial appendage PWD velocities are greater than 40 cm/s - The aortic valve has no stenosis ??and trace regurgitation . - The mitral valve has no stenosis ??and trace regurgitation . - The tricuspid valve has no stenosis ??and trace regurgitation . - The pulmonic valve has no stenosis ??and trace regurgitation . - There is a PFO with left to right shunting appreciated. - The aortic root is dilated see with sinus of valsalva measured at 4.7 cm. - The aortic root, ascending aorta, and descending aorta are without dissection. - There is a linear hyperechoic structure seen traversing the superior vena cava into the right ventricle going into pulmonary artery consistent with a pulmonary artery catheter. - There is no pericardial effusion appreciated. Post Cardiopulmonary Bypass: - The left ventricle has normal ??function. By visual estimate the post bypass ejection fraction is 55-60%. - There are no regional wall motion abnormalities appreciated. - The right ventricle is of normal size and has normal ??function. - There is now mild to moderate aortic regurgitation appreciated. This appears to be an eccentric jet directed towards anterior mitral leaflet. On short axis view the regurgitation appears to be in the commissure between the non and left coronary cusps. On 2D imaging there does not appear to be an obvious or profound prolapse of the aortic valve leaflets. - There are no new valvular lesions appreciated. - The aortic root, ascending aorta, and descending aorta are without dilatation or dissection. - There is prosthetic material appreciated in the ascending aorta consistent with procedure done. ?? - There is no new pericardial effusion appreciated. Findings discussed with surgeon. Study Details Overall the study quality was adequate. The underlying ECG rhythm was sinus rhythm. The procedure, risks and alternatives were explained. Informed consent was obtained. The probe was inserted by the anesthesiologist. There was no probe insertion difficulty. General anesthesia was administered by anesthesia. The patient had no complications. Estimated blood loss: no blood loss. No specimens were collected. us Corby Britton MD CV ECHO PROCEDURES Final Result * (ABNORMAL) Thromboelastograph 6 global hemostasis panel (10/04/2024 2:08 PM EST) TEG Citrated Kaolin Reaction Time 6.9 4.6 - 9.1 min LAB COAGULATION METHOD 10/04/2024 2:51 PM EST [facility] TEG Citrated Kaolin Kinetic Time 2.3(H) 0.8 - 2.1 min LAB COAGULATION METHOD 10/04/2024 2:51 PM EST [facility] TEG Citrated Kaolin Angle 63.7 63.0 - 78.0 deg LAB COAGULATION METHOD 10/04/2024 2:51 PM EST [facility] Citrated Kaolin - Max Amplitude 49.3(L) 52.0 - 69.0 mm LAB COAGULATION METHOD 10/04/2024 2:51 PM EST [facility] Citrated Kaolin with Heparinase Reaction Time 6.3 4.3 - 8.3 min LAB COAGULATION METHOD 10/04/2024 2:51 PM EST [facility] Citrated Rapid TEG- Max Amplitude 51.5(L) 52.0 - 70.0 mm LAB COAGULATION METHOD 10/04/2024 2:51 PM EST [facility] TEG Citrated Functional Fibrinogen - Max Amplitude 15.1 15.0 - 32.0 mm LAB COAGULATION METHOD 10/04/2024 2:51 PM EST [facility] Citrated Functional Fibrinogen Level 275.5(L) 278.0 - 581.0 mg/dL LAB COAGULATION METHOD 10/04/2024 2:51 PM EST [facility] Blood Arterial blood specimen / Unknown 10/04/2024 2:08 PM EST 10/04/2024 2:13 PM EST Kit Gonzalez MD LAB BLOOD ORDERABLES Fin al Result [facility] [address] [place] [address], [place] [phone] * Transfuse platelets (10/04/2024 1:48 PM EST) Only the most recent of2 resultswithin the time period is included. Corby Britton MD BLOOD TRANSFUSION ORDERABLES Ed ited Result - Final * Prepare platelets: 2 Product (10/04/2024 12:32 PM EST) Product Code [id number] 10/04/2024 1:38 PM EST [facility] Unit Number [id number] 10/04/19 1:38 PM EST [facility] Dispense Status Transfused 10/04/2024 1:38 PM EST [facility] Unit ABO Rh OPOS 10/04/2024 1:38 PM EST [facility] Unit Expiration Date Time 10/04/2024 1:38 PM EST [facility] Unit Blood Type 5100 10/04/2024 1:38 PM EST [facility] Product Code [id number] 10/04/2024 1:38 PM EST [facility] Unit Number [id number] 10/04/19 1:38 PM EST [facility] Dispense Status Transfused 10/04/2024 1:38 PM EST [facility] Unit ABO Rh OPOS 10/04/2024 1:38 PM EST [facility] Unit Expiration Date Time 10/04/2024 1:38 PM EST [facility] Unit Blood Type 5100 10/04/2024 1:38 PM EST [facility] Blood Venous blood specimen / Unknown 10/04/2024 12:32 PM EST us Kit Gonzalez MD BLOOD BANK PRODUCT ORDER NAYLA Final Result [facility] [address] [place] [address], * (ABNORMAL) POCT Venous blood gas, NA, K, ICAL, GLU, HH (10/04/2024 12:30 PM EST) pH Venous POCT 7.30(L) 7.35 - 7.45 12:32 PM [facility] pH Temp Corrected Venous, POCT 7.30(L) 7.35 - 7.45 10/04/2024 12:32 PM [facility] pO2 Venous POCT 39 No Established Reference Range mmHg 10/04/2024 12:32 PM [facility] PO2 Temp Corrected Venous, POCT 39 No Established Reference Range mmHg 10/04/2024 12:32 PM [facility] pCO2 Venous POCT 47.4 No Established Reference Range mmHg 10/04/2024 12:32 PM [facility] PCO2 Temp Corrected Venous, POCT 47.4 No Established Reference Range mmHg 10/04/2024 12:32 PM [facility] HCO3 Venous POCT 23.5 No Established Reference Range mmol/L 10/04/2024 12:32 PM [facility] SO2 Venous POCT 67 No Established Reference Range % 10/04/2024 12:32 PM [facility] Base Excess Venous POCT -3 No Established Reference Range mmol/L 10/04/2024 12:32 PM [facility] Glucose Venous POCT 134 70 - 199 mg/dL 10/04/2024 12:32 PM [facility] Comment: Fasting Reference Range: ? 70-99 mg/dL Non-Fasting Reference Range: 70-199 mg/dL Sodium Venous POCT 139 135 - 145 mmol/L 10/04/2024 12:32 PM [facility] Potassium Venous POCT 3.9 3.5 - 5.1 mmol/L 10/04/2024 12:32 PM [facility] Ionized Calcium, Venous POCT 1.38(H) 1.19 - 1.35 mmol/L 10/04/2024 12:32 PM [facility] Hemoglobin Venous POCT 9.5(L) 13.5 - 18.0 g/dL 10/04/2024 12:32 PM EST [facility] Hematocrit Venous POCT 28(L) 40 - 54 % 10/04/2024 12:32 PM [facility] FIO2 POCT 85.0 No Established Reference Range % 10/04/2024 12:32 PM EST [facility] Patient Temperature POCT 37.0 C 10/04/2024 12:32 PM EST [facility] Blood Venous blood specimen / Unknown 10/04/2024 12:30 PM EST 10/04/2024 12:33 PM EST us Kit Gonzalez MD LAB POINT OF CAR E TEST DOCKED DEVICE UNSOLICITED RESULTS Final Result Performing Organization Address [facility]/ZIP Co de Phone Number [facility] [address] [place] [address], * Fibrinogen (10/04/2024 10:48 AM EST) Fibrinogen 234 145 - 415 mg/dL LAB COAGULATION METHOD 10/04/2024 11:11 AM EST [facility] Blood Arterial blood specimen / Unknown 10/04/2024 10:48 AM EST 10/04/2024 10:57 AM EST Comment:STAT pt in OR us Kit Gonzalez MD LAB BLOOD ORDERABLES Fin al Result [facility] [address] [place] [address], [place] [phone] * Platelet count (10/04/2024 10:48 AM EST) Platelets 203 150 - 450 K/mcL LAB HEMETOLOGY METHOD 10/04/2024 11:04 AM EST [facility] MPV 10/04/2024 11:04 AM EST [facility] Blood Arterial blood specimen / Unknown 10/04/2024 10:48 AM EST 10/04/2024 10:57 AM EST Comment:STAT pt in OR Kit Gonzalez MD LAB BLOOD ORDERABLES Fin al Result [facility] [address] [place] [address], * Tissue exam (10/04/2024 9:02 AM EST) Final Diagnosis Ascending aorta, aneurysm repair: Strips of benign aortic wall with degenerative changes. 10/05/2024 11:10 AM EST [facility] Gross Description A. Heart, Ascending Aorta: Received in formalin labeled ascending aorta are 2 irregular portions of rubbery pale yellow vascular tissue measuring 3.5 x 1.5 x 0.2 cm and 10.5 x 4.5 x 0.3 cm. There is not distinct separation of the vessel wall layers. One surface is smooth and yellow with bright pale yellow fatty streaks. The opposing surface has attached, glistening, mercer-yellow to red-purple hemorrhagic adipose tissue. Auto Service Dispatcher sections are submitted in 1 cassette labeled A1, 3 pieces. LNS 10/04/24. 10/05/2024 11:10 AM EST [facility] Disclaimer The technical components of this case were performed at [address] [address] CLIA # [id number] 10/05/2024 11:10 AM EST [facility] Tissue Heart structure / Unknown 10/04/2024 9:02 AM EST 10/04/2024 3:50 PM EST Kit Gonzalez MD LAB PATHOLOGY ORDERABLES Final Result Performing Organization Address City/[facility]/ZIP Co de Phone Number [facility] [address] [place] [address], [place] [phone] * TH AN ENDOTRACHEAL(NO CHARGE) (10/04/2024 8:01 AM EST) Corby Prince MD - 10/04/2024 8:01 AM EST Mati Larsen MD ? 10/04/2024 ??8:02 AM General Information and Staff Patient location during procedure: OR Anesthesiologist: Corby Britton MD Resident/LITIGATION ATTORNEY ASSOCIATE: Mati Larsen MD Performed: resident/LITIGATION ATTORNEY ASSOCIATE/CAA Performed by: Mati Larsen MD Authorized by: Corby Britton MD ?? Intubation Airway not difficult Urgency: elective Final Airway Details Successful airway: ETT Cuffed: yes Successful intubation technique: direct laryngoscopy Facilitating devices/methods: intubating stylet Endotracheal tube insertion site: oral Blade: Dianne Blade size: #3 ETT size (mm): 8.0 Cormack-Lehane Classification: grade IIa - partial view of glottis (cricoid pressure required) Placement verified by: chest auscultation and capnometry Measured from: lips Number of attempts at approach: 1 Number of other approaches attempted: 0Final airway type: endotracheal airway Indications and Patient Condition Indications for airway management: anesthesia Spontaneous Ventilation: absent Sedation level: Yes Preoxygenated: yes Soft Tissue Damage: No Dentition Unchanged: Yes Patient position: sniffing MILS maintained throughout Mask difficulty assessment: 1 - vent by mask Corby Britton MD ANESTHESIA ORDERABLES Final Res ult * ANESTHESIA PAC LINE PLACEMENT (10/04/2024 8:00 AM EST) Corby Prince MD - 10/04/2024 8:00 AM EST Mati Larsen MD ? 10/04/2024 ??8:01 AM PA Catheter Placement: A PA catheter was placed in the OR for the following indication(s): central venous access, CVP monitoring and cardiac monitoring performed. Staffing Performed: Resident/LITIGATION ATTORNEY ASSOCIATE/CAA Anesthesiologist: Corby Britton MD Resident/LITIGATION ATTORNEY ASSOCIATE: Mati Larsen MD Performed by: Mati Larsen MD Authorized by: Corby Britton MD ?? Completed: patient identified, IV checked, site marked, risks and benefits discussed, surgical consent, monitors and equipment checked, pre-op evaluation and timeout performed Procedure Information Sterility preparation included the following: provider hand hygiene performed prior to central venous catheter insertion, all 5 sterile barriers used (gloves, gown, cap, mask, large sterile drape) during central venous catheter insertion and skin prep agent completely dried prior to procedure. The site was prepped with ChloraPrep. Skin prep agent completely dried prior to procedure. The patient was placed in Trendelenburg position. PA catheter laterality: Right Site: internal jugular vein PA catheter placement: distal introducer port Introducer size: 9 Fr Catheter size: 7.5 Catheter type: oximetric Successful placement with 1 attempt(s) The PAC placement was confirmed by pressure tracing changes and RJ. Post insertion care included: dressing applied, line secured and line sutured. Procedure was uneventful. Additional notes: A pulmonary artery catheter was floated through introducer. Location of PA catheter confirmed by RJ and pressure waveform analysis. us Corby Britton MD ANESTHESIA ORDERABLES Final Res ult * TH AN CENTRAL LINE (NO CHARGE), NM ANESTHESIA CENTRAL LINE CORDIS DOUBLE (10/04/2024 7:59 AM EST) Corby Prince MD - 10/04/2024 7:59 AM EST Mati Larsen MD ? 10/04/2024 ??8:00 AM Central Venous Line Placement Performed by: Mati Larsen MD Authorized by: Corby Britton MD ??Consent: Written consent obtained. Risks and benefits: risks, benefits and alternatives were discussed Consent given by: patient Patient understanding: patient states understanding of the procedure being performed Patient consent: the patient's understanding of the procedure matches consent given Procedure consent: procedure consent matches procedure scheduled Relevant documents: relevant documents present and verified Required items: required blood products, implants, devices, and special equipment available Patient identity confirmed: arm band and verbally with patient Time out: Immediately prior to procedure a time out was called to verify the correct patient, procedure, equipment, business support coordinator and site/side marked as required. Indications: vascular access and central pressure monitoring Sedation: Patient sedated: yes Vitals: Vital signs were monitored during sedation. Preparation: skin prepped with 2% chlorhexidine Skin prep agent dried: skin prep agent completely dried prior to procedure Sterile barriers: all five maximum sterile barriers used - cap, mask, sterile gown, sterile gloves, and large sterile sheet Hand hygiene: hand hygiene performed prior to central venous catheter insertion Location details: right internal jugular Patient position: Trendelenburg Catheter size: 9 Fr Pre-procedure: landmarks identified Ultrasound guidance: yes Sterile ultrasound techniques: sterile gel and sterile probe covers were used Number of attempts: 1 Successful placement: yes Post-procedure: line sutured and dressing applied Assessment: blood return through all ports and free fluid flow (manometry) Patient tolerance: patient tolerated the procedure well with no immediate complications Comments: Circulating nurse witnessed removal of wire and dilator intact. Patient Location During Procedure: OR Staffing Anesthesiologist: Corby Britton MD Resident/LITIGATION ATTORNEY ASSOCIATE: Mati Larsen MD Corby Britton MD ANESTHESIA ORDERABLES Final Res ult * Type and screen (10/03/2024 4:26 PM EST) Only the most recent of2 resultswithin the time period is included. ABO Group O 10/03/2024 5:30 PM EST [facility] Rh Type Positive 10/03/2024 5:30 PM EST [facility] Antibody Screen Negative 10/03/2024 5:30 PM EST [facility] Blood Venous blood specimen / Unknown Venipuncture / Unknown 10/03/2024 4:26 PM EST 10/03/2024 4:32 PM EST us Arelis FIGUEROA LAB BLOOD BANK TEST ORDERA BLES Final Result [facility] [address] [place] [address], [place] [phone] * Prepare RBC: 4 Units (10/03/2024 3:47 PM EST) Product Code [id number] 10/04/2024 10:16 PM [facility] Unit Number [id number] 10/04/19 10:16 PM [facility] Crossmatch Compatible 10/03/2024 7:12 PM [facility] Dispense Status Released From Crossmatch 10/04/2024 10:16 PM [facility] Unit ABO Rh OPOS 10/04/2024 10:16 PM [facility] Unit Expiration Date Time [id number] 10/04/2024 10:16 PM [facility] Unit Blood Type 5100 10/04/2024 10:16 PM [facility] Product Code [id number] 10/04/2024 10:17 PM [facility] Unit Number [id number] 10/04/19 10:17 PM [facility] Crossmatch Compatible 10/03/2024 7:12 PM [facility] Dispense Status Released From Crossmatch 10/04/2024 10:17 PM [facility] Unit ABO Rh OPOS 10/04/2024 10:17 PM [facility] Unit Expiration Date Time [id number] 10/04/2024 10:17 PM [facility] Unit Blood Type 5100 10/04/2024 10:17 PM [facility] Product Code [id number] 10/04/2024 10:16 PM [facility] Unit Number [id number] 10/04/19 10:16 PM [facility] Crossmatch Compatible 10/03/2024 7:12 PM [facility] Dispense Status Released From Crossmatch 10/04/2024 10:16 PM [facility] Unit ABO Rh OPOS 10/04/2024 10:16 PM [facility] Unit Expiration Date Time [id number] 10/04/2024 10:16 PM [facility] Unit Blood Type 5100 10/04/2024 10:16 PM [facility] Product Code [id number] 10/04/2024 10:17 PM EST [facility] Unit Number [id number] 10/04/19 10:17 PM [facility] Crossmatch Compatible 10/03/2024 7:12 PM [facility] Dispense Status Released From Crossmatch 10/04/2024 10:17 PM [facility] Unit ABO Rh OPOS 10/04/2024 10:17 PM [facility] Unit Expiration Date Time [id number] 10/04/2024 10:17 PM [facility] Unit Blood Type 5100 10/04/2024 10:17 PM [facility] Blood Venous blood specimen / Unknown 10/03/2024 3:47 PM EST 10/03/2024 4:32 PM EST Arelis FIGUEROA BLOOD BANK PRODUCT ORDERAB LES Final Result [facility] [address] [place] [address], [place] [phone] * Pulmonary function testing: Carbon Monoxide Diffusing Capacity, Nitrogen Wash Out, Spirometry (09/23/2024 11:09 AM EST) Narrative Eduardo Hernández MD - 09/23/2024 11:50 AM EST FVC is normal FEV1 is normal Ratio of FEV1 to FVC is normal Total lung capacity is normal ERV is reduced Diffusion capacity is normal Impression: Normal spirometry and lung volumes, low ERV due to elevated BMI, normal diffusion capacity us Kit Gonzalez MD PFT ORDERABLES Final Re sult * (ABNORMAL) Urinalysis with reflex microscopic and culture (09/23/2024 8:15 AM EST) Color, Urine Yellow Yellow, Colorless LAB URINALYSIS - AUTOMATED METHOD 09/23/2024 9:16 AM [facility] Clarity, Urine Clear Clear LAB URINALYSIS - AUTOMATED METHOD 09/23/2024 9:16 AM [facility] Specific [place] Urine 1.018 1.005 - 1.030 LAB URINALYSIS - AUTOMATED METHOD 09/23/2024 9:16 AM [facility] pH, Urine 5.0(A) 5.0 - 8.0 pH LAB URINALYSIS - AUTOMATED METHOD 09/23/2024 9:16 AM [facility] Leukocytes, Urine Negative Negative WBCs/mcL LAB URINALYSIS - AUTOMATED METHOD 09/23/2024 9:16 AM [facility] Nitrite, Urine Negative Negative LAB URINALYSIS - AUTOMATED METHOD 09/23/2024 9:16 AM [facility] Protein, Urine Negative Negative mg/dL LAB URINALYSIS - AUTOMATED METHOD 09/23/2024 9:16 AM [facility] Glucose, Urine Negative Negative mg/dL LAB URINALYSIS - AUTOMATED METHOD 09/23/2024 9:16 AM [facility] Ketones, Urine Negative Negative mg/dL LAB URINALYSIS - AUTOMATED METHOD 09/23/2024 9:16 AM [facility] Blood, Urine Negative Negative mg/dL LAB URINALYSIS - AUTOMATED METHOD 09/23/2024 9:16 AM [facility] RBC, Urine <1 0 - 3 /HPF LAB URINALYSIS - AUTOMATED METHOD 09/23/2024 9:16 AM EST [facility] WBC, Urine <1 0 - 5 /HPF LAB URINALYSIS - AUTOMATED METHOD 09/23/2024 9:16 AM EST [facility] Squamous Epithelial, Urine 2 0 - 5 /HPF LAB URINALYSIS - AUTOMATED METHOD 09/23/2024 9:16 AM [facility] Mucus, Urine Present(A) Not Present /HPF LAB URINALYSIS - AUTOMATED METHOD 09/23/2024 9:16 AM [facility] Urine Urine specimen obtained by clean catch procedure / Unknown 09/23/2024 8:15 AM EST 09/23/2024 8:54 AM EST us Kit Gonzalez MD LAB URINE ORDERABLES Fin al Result Performing Organization Address [facility]/ZIP Co de Phone Number [facility] [address] [place] [address], [place] [phone] * Nicholas urine culture tube (09/23/2024 8:15 AM EST) Extra Tube Hold for add-ons. 09/23/2024 10:01 AM EST [facility] Comment:Auto resulted. Urine Urine specimen obtained by clean catch procedure / Unknown 09/23/2024 8:15 AM EST 09/23/2024 8:54 AM EST us Kit Gonzalez MD LAB URINE ORDERABLES Fin al Result [facility] [address] [place] [address], [place] [phone] * (ABNORMAL) Lipid panel with reflex to direct LDL (09/23/2024 8:15 AM EST) Cholesterol 187 0 - 200 mg/dL LAB CHEMISTRY METHOD 09/23/2024 9:28 AM [facility] Triglycerides 158(H) <150 mg/dL LAB CHEMISTRY METHOD 09/23/2024 9:28 AM EST [facility] HDL 54 32 - 70 mg/dL LAB CHEMISTRY METHOD 09/23/2024 9:28 AM EST [facility] LDL Calculated 101 50 - 130 mg/dL LAB CHEMISTRY METHOD 09/23/2024 9:28 AM EST [facility] VLDL Cholesterol Clint 31.6 mg/dL LAB CHEMISTRY METHOD 09/23/2024 9:28 AM EST [facility] Comment:No established refer ence range. Blood Venous blood specimen / Unknown Venipuncture / Unknown 09/23/2024 8:15 AM EST 09/23/2024 8:54 AM EST us Kit Gonzalez MD LAB BLOOD ORDERABLES Fin al Result Performing Organization Address City/[facility]/ZIP Co de Phone Number [facility] [address] [place] [address], * Prealbumin (09/23/2024 8:15 AM EST) Prealbumin 28 17 - 34 mg/dL LAB CHEMISTRY METHOD 09/23/2024 9:24 AM EST [facility] Blood Venous blood specimen / Unknown Venipuncture / Unknown 09/23/2024 8:15 AM EST 09/23/2024 8:54 AM EST us Kit Gonzalez MD LAB BLOOD ORDERABLES Fin al Result [facility] [address] [place] [address], [place] [phone] * B-type natriuretic peptide (09/23/2024 8:15 AM EST) BNP 15 0 - 100 pcg/mL LAB CHEMISTRY METHOD 09/23/2024 9:35 AM EST [facility] Blood Venous blood specimen / Unknown Venipuncture / Unknown 09/23/2024 8:15 AM EST 09/23/2024 8:54 AM EST us Kit Gonzalez MD LAB BLOOD ORDERABLES Fin al Result Performing Organization Address City/[facility]/ZIP Co de Phone Number [facility] [address] [place] [address], [place] [phone] * Hemoglobin A1c (09/23/2024 8:15 AM EST) Hemoglobin A1C 5.3 <5.7 % LAB CHEMISTRY METHOD 09/23/2024 9:26 AM EST [facility] Mean Bld Glu Estim. 105 mg/dL LAB CHEMISTRY METHOD 09/23/2024 9:26 AM EST [facility] Blood Venous blood specimen / Unknown Venipuncture / Unknown 09/23/2024 8:15 AM EST 09/23/2024 8:54 AM EST Narrative [facility] - 09/23/2024 9:26 AM EST ADA Guidelines: ?? Increased risk Diabetes Mellitus A1C 5.7 - 6.4% and Fasting Blood Glucose 100 - 125 mg/dl Diabetes Mellitus: A1C >6.5% and Fasting Blood Glucose >125 mg/dl Kit Gonzalez MD LAB BLOOD ORDERABLES Fin al Result [facility] [address] [place] [address], [place] [phone] * (ABNORMAL) Hepatic function panel (09/23/2024 8:15 AM EST) ALT (SGPT) 32 7 - 52 unit/L LAB CHEMISTRY METHOD 09/23/2024 9:28 AM EST [facility] AST (SGOT) 22 5 - 40 unit/L LAB CHEMISTRY METHOD 09/23/2024 9:28 AM EST [facility] Alkaline Phosphatase 79 34 - 104 unit/L LAB CHEMISTRY METHOD 09/23/2024 9:28 AM EST [facility] Bilirubin, Direct 0.1 0.0 - 0.2 mg/dL LAB CHEMISTRY METHOD 09/23/2024 9:28 AM EST [facility] Total Bilirubin 0.7 0.3 - 1.0 mg/dL LAB CHEMISTRY METHOD 09/23/2024 9:28 AM EST [facility] Total Protein 7.0 6.4 - 8.5 g/dL LAB CHEMISTRY METHOD 09/23/2024 9:28 AM EST [facility] Albumin 4.8 3.5 - 5.0 g/dL LAB CHEMISTRY METHOD 09/23/2024 9:28 AM EST [facility] Globulin, Total 2.2(L) 2.3 - 3.5 g/dL LAB CHEMISTRY METHOD 09/23/2024 9:28 AM EST [facility] A/G Ratio 2.2 LAB CHEMISTRY METHOD 09/23/2024 9:28 AM EST [facility] Blood Venous blood specimen / Unknown Venipuncture / Unknown 09/23/2024 8:15 AM EST 09/23/2024 8:54 AM EST us Kit Gonzalez MD LAB BLOOD ORDERABLES Fin al Result Performing Organization Address City/State/[facility] Co de Phone Number [facility] [address] [place] [address], * LEFT HEART CATH / CORONARY ANGIOGRAPHY (09/10/2024 10:13 AM EST) Anatomical Region Laterality Modality X-Ray Angiograph y Narrative 09/13/2024 10:21 AM EST Ascending aortic root aneurysm Normal-appearing coronary anatomy Elevated LVEDP Coronary Findings Diagnostic Dominance: Right Left Main: The vessel was visualized by angiography and is angiographically normal. Left Anterior Descending: The vessel was visualized by angiography and is angiographically normal. Left Circumflex: The vessel was visualized by angiography and is angiographically normal. Right Coronary Artery: The vessel was visualized by angiography and is angiographically normal. Intervention No interventions have been documented. Cardiac Cath Measurements Pressure measurements: LV pressure = 115/26 mmHg. LVED pressure = 22 mmHg. Clinical Background 53 y.o. male who has past medical history significant for hyperlipidemia, family history of aortic aneurysm and aortic aneurysm rupture in his father - has been diagnosed with ascending thoracic aorta /aortic root aneurysm of 4.9 cm. Procedure Details After explanation of the risks and benefits of the procedure, ?informed consent was obtained. The right groin was prepped ?and draped in the standard manner. US guided 2% mepivocaine ?was used to infiltrate the right groin.?? A 6F sheath was placed in the right femoral artery using the ?modified Seldinger technique. Coronary angiography was ?performed in multiple projections. After all catheters and ?the sheath were removed, adequate hemostasis was achieved- ??Perclose. The patient returned to the recovery unit in stable ?condition. The case was uncomplicated. Kit Houser DO CV CARDIAC CATH PROCEDURES F inal Result * ECG 12 lead - Procedural (No Charge) (09/10/2024 7:43 AM EST) Ventricular Rate ECG 69 BPM GEMUSE Atrial Rate 69 BPM GEMUSE P-R Interval 168 ms GEMUSE QRS Duration 110 ms GEMUSE Q-T Interval 394 ms GEMUSE QTc 422 ms GEMUSE P Wave [place] 36 degrees GEMUSE R [place] 36 degrees GEMUSE T [place] 17 degrees GEMUSE ECG Interpretation Normal sinus rhythm Normal ECG Confirmed by Rachael Greenberg ([id number]) on 09/10/2024 11:59:15 AM GEMUSE 09/10/2024 7:43 AM EST 09/10/2024 11:59 AM EST Kit Houser DO ECG ORDERABLES Final Result GEMUSE * CT Angio Chest wo and/or w [...] Society of Cardiovascular Computed Tomography (SCCT), the [place] [employer] (ACC), the [place] College [employer] Rad[employer] (ACR), and the [place] [...] cannot be excluded J Cardiovasc Comput Tomogr. 2022; 16:536-557. Report reviewed and signed by : Dr. Davon Quijano on 09/01/2024 7:01 PM. Workstation Name - [id number] -------- FINAL REPORT -------- Dictated By: Davon Quijano Dictated Date: 09/01/2024 18:10 ET Assigned Physician: Davon Quijano Reviewed and Electronically Signed By: Davon Quijano Signed Date: 09/01/2024 19:01 ET Workstation ID: [id number] Transcribed By: Self Edit Transcribed Date: 09/01/2024 [...] aorta is normal in course and caliber (tzlipxalp29.1 mm in diameter at the level of [...] the Society of Cardiovascular ComputedTomography (SCCT), the [place] College [employer] Cardiology (ACC), the AmericanCollege of [...] Quijano on 09/01/2024 7:01 PM.Workstation Name - [id number] -------- FINAL REPORT -------- Dictated By: Davon Quijano Dictated Date: 09/01/2024 18:10 ET Assigned Physician: Davon Quijano Reviewed and Electronically Signed By: Davon Quijano Signed Date: 09/01/2024 19:01 ET Workstation ID: [id number] Transcribed By: Self Edit Transcribed Date: 09/01/2024 18:10 ET Kit Gonzalez MD IMG CT PROCEDURES Final Result from Last 3 Months [facility] Advance Directives * Full Code - Confirmed (Latest Code Status on File) Date Activated Date Inactivated Comments 10/04/2024 3:16 PM 10/10/2024 2:38 PM This code sta tus was ascertained in the following way: Code status discussion: discussion with patient To update the patient's code status, place a code status order. Do not modify or discontinue any currently active code status orders. * Full Code - Default Date Activated Date Inactivated Comments 10/03/2024 3:46 PM 10/04/2024 3:16 PM This is orde r is used when code status has not been discussed with the patient, or code status is otherwise unknown/unconfirmed To update the patient's code status, place a code status order. Do not modify or discontinue any currently active code status orders. * Full Code - Default Date Activated Date Inactivated Comments 09/10/2024 10:32 AM 09/10/2024 4:14 PM This is ord er is used when code status has not been discussed with the patient, or code status is otherwise unknown/unconfirmed To update the patient's code status, place a code status order. Do not modify or discontinue any currently active code status orders. * Full Code - Default Date Activated Date Inactivated Comments 09/10/2024 7:18 AM 09/10/2024 10:32 AM This is ord er is used when code status has not been discussed with the patient, or code status is otherwise unknown/unconfirmed To update the patient's code status, place a code status order. Do not modify or discontinue any currently active code status orders. * Full Code - Default Date Activated Date Inactivated Comments 09/10/2024 7:18 AM 09/10/2024 7:18 AM This is orde r is used when code status has not been discussed with the patient, or code status is otherwise unknown/unconfirmed To update the patient's code status, place a code status order. Do not modify or discontinue any currently active code status orders. Care Teams Space Operations Relationship Specialty Start Date End Date Diane Polanco MD [address] [place] [phone] PCP - General 04/07/24
--- OUTSIDE RECORDS SUMMARY | 2024-11-08 12:01 | XMS_ITS | Encounter Summary ---
Author Organization [employer] Address [address] [place] [address] Care Team Providers Care Financial Advisor Name Role Phone Diane Polanco MD Primary Care Provider [phone] Encounter Details Date Type Department Care Team (Late st Contact Info) Description 10/12/2024 Telephone [facility] [place] [facility] 19 [facility] [address] [place] [address] Emili Rod LPN Social History Tobacco Use Types Packs/Day Years [...] as of this encounter Progress Notes * Victoriano Hanley MD - 10/13/2024 1:19 PM EST Ok * Emili Rod LPN - 10/13/2024 12:27 PM EST Called to F/U with patient regarding start of new medication for BLE edema. Patient states [facility] His nurse felt his swelling was not significant enough for him to start on a medication. Patient does not want to start on medication at this time * Victoriano Hanley MD - 10/13/2024 10:34 AM EST Please call for furosemide 20 mg every morning and add 1-2 bananas in diet on a daily basis. * Emili Rod LPN - 10/12/2024 4:03 PM EST Patient called concerned reporting BLE edema after being discharged from the hospital post open heart surgery. Patient states he had surgery last Friday and was discharged this past Friday and noticed BLE edema. Denies SOB, dizziness or edema elsewhere. Advised patient to go ER if symptoms worsen. documented in this encounter Plan of Treatment Upcoming Encounters Date Type Department Care Team (Latest Contact Info) Description 11/08/2024 1:00 PM EDT Appointment Non-Invasive Cardiology [address] [place] [phone] 11/08/2024 2:00 PM EDT Office Visit Cardiothoracic Surgery [facility] [address] [place] [phone] Kit Gonzalez MD 1000 [facility] [address] [place] [address] 11/09/2024 7:00 AM EDT Hospital Encounter Non-Invasive Cardiology [address] [place] [phone] Victoriano Hanley MD [address] [place] [address] 11/12/[address] [facility] - [place] 19 [facility] [address] [place] [phone] Lew Rollins LPN Pre-procedural cardiovascular examination 11/30/2024 4:00 PM EDT Office Visit [facility] [place] [facility] - [place] [address] [place] [address] Victoriano Hanley MD 19 [facility] [address] [place] [address] documented as of this encounter Visit Diagnoses Not on filedocumented in this encounter Care Teams Financial Advisor Relationship Specialty Start Date End Date Diane Polanco MD [address] [place] [phone] PCP - General 04/07/24 documented as of this encounter
--- OUTSIDE RECORDS SUMMARY | 2024-11-08 12:01 | XMS_ITS | Encounter Summary ---
Author Organization [facility] Address [address] [place] [address] Care Team Providers Care Tariff Clerk Name Role Phone Diane Polanco MD Primary Care Provider [phone] Encounter Details Date Type Department Care Team (Late st Contact Info) Description 11/05/[address] [facility] - [place] 19 [facility] [address] [place] [address] Lew Rollins LPN Pre-procedural cardiovascular examination Social History Tobacco Use Types Packs/Day Years [...] AM EST documented as of this encounter Plan of Treatment Upcoming Encounters Date Type Department Care Team (Latest Contact Info) Description 11/08/2024 1:00 PM EDT Appointment [facility] Non-Invasive Cardiology [address] [place] [address] 11/08/2024 2:00 PM EDT Office Visit Cardiothoracic Surgery [facility] [address] [facility] [address] [place] [phone] Kit Gonzalez MD [facility] [address] [place] [phone] 11/09/2024 7:00 AM EDT Hospital Encounter [facility] Non-Invasive Cardiology [address] [place] [address] Victoriano Hanley MD [address] [place] [address] 11/12/[address] [place] [facility]iology - [address] [phone] Lew Rollins LPN Pre-procedural cardiovascular examination 11/30/2024 4:00 PM EDT Office Visit [facility] [place] [facility] [address] [phone] Victoriano Hanley MD [address] [place] [phone] documented as of this encounter Visit Diagnoses Diagnosis Pre-procedural cardiovascular examination Pre-operative cardiovascular examination Pre-procedural cardiovascular examination Pre-operative cardiovascular examination documented in this encounter Care Teams Tariff Clerk Relationship Specialty Start Date End Date Diane Polanco MD [address] [place] [address] PCP - General 04/07/24 documented as of this encounter
--- OUTSIDE RECORDS SUMMARY | 2024-11-08 12:01 | XMS_ITS | Encounter Summary ---
Author Organization [facility] Address [address] [place] [address] Care Team Providers Care Employment Program Representative Name Role Phone Diane Polanco MD Primary Care Provider [phone] Encounter Details Date Type Department Care Team [...] Info) Description 11/08/2024 1:00 PM EDT Appointment [facility] Non-Invasive Cardiology [address] [place] [phone] 11/08/2024 2:00 PM EDT Office Visit Cardiothoracic Surgery - [place] [address] [place] [phone] Kit Gonzalez MD [address] [place] [address] 11/09/2024 7:00 AM EDT Hospital Encounter [facility] Non-Invasive Cardiology [address] [place] [address] Victoriano Hanley MD [address] [address] 11/12/[address] Cardiology - [address] [place] [address] Lew Rollins LPN Pre-procedural cardiovascular examination 11/30/2024 4:00 PM EDT Office Visit [facility] [place] [facility] - [address] [place] [address] Victoriano Hanley MD [address] [phone] documented as of this encounter Procedures Procedure [...] 9:32 AM EDT Report completed outside of [place] [facility]. ??Refer to scanned document and/or notes for final report. Not Vldtd Procedure Note Historical, Cardiovascular Results, MD - 06/08/2024 Report completed outside of [place] [facility]. Refer to scanned document and/or notesfor final report. Not Vldtd us Victoriano Hanley MD CV HISTORICAL CONV PROCEDURES Final Result documented in this encounter Visit Diagnoses Diagnosis Mixed hyperlipidemia Aneurysm of the ascending aorta, without rupture (CMS/[facility]) Pre-procedural cardiovascular examination Pre-operative cardiovascular examination documented in this encounter Care Teams Employment Program Representative Relationship Specialty Start Date End Date Diane Polanco MD [address] [place] [phone] PCP - General 04/07/24 documented as of this encounter
--- OUTSIDE RECORDS SUMMARY | 2024-11-08 12:01 | XMS_ITS | Encounter Summary ---
Author Organization [employer] Address [address] [place] [address] Care Team Providers Care Nurse Assistant Name Role Phone Diane Polanco MD Primary Care Provider [phone] Reason for Visit * Reason Onset Date Comments Plan of care A-FIB 11/05/2024 Encounter Details Date Type Department Care Team ([facility] st Contact Info) Description 11/05/2024 Telephone [facility] [place] [facility] - [place] 19 [facility] [address] [place] [address] Loulou Cobb LPN Plan of care A-FIB Social History Tobacco Use Types Packs/Day Years [...] as of this encounter Progress Notes * Loulou Cobb LPN - 11/05/2024 11:36 AM EDT PT will be in [place] today between 2-230pm to obtain a EKG> The EKG will be assessed by Patriziafor A-Fib. Patrizia is aware. Please scan the EKG in the system and infirm when completed. The PT isgetting scheduled for cardioversion by Dr. Hanley, Any questions please call me. Thx documented in this encounter Plan of Treatment Upcoming Encounters Date Type Department Care Team (Latest Contact Info) Description 11/08/2024 1:00 PM EDT Appointment [facility] Non-Invasive Cardiology [address] [place] [phone] 11/08/2024 2:00 PM EDT Office Visit Cardiothoracic Surgery [facility] [address] [place] [address] Kit Gonzalez MD [address] [place] [address] 11/09/2024 7:00 AM EDT Hospital Encounter [facility] Non-Invasive Cardiology [address] [place] [phone] Victoriano Hanley MD [address] [place] [address] 11/12/[address] [place] [facility] [address] [phone] Lew Rollins LPN Pre-procedural cardiovascular examination 11/30/2024 4:00 PM EDT Office Visit [facility] [place] [facility] [address] [phone] Victoriano Hanley MD [address] [place] [address] documented as of this encounter Visit Diagnoses Not on filedocumented in this encounter Care Teams Nurse Assistant Relationship Specialty Start Date End Date Diane Polanco MD [address] [place] [address] PCP - General 04/07/24 documented as of this encounter
--- OUTSIDE RECORDS SUMMARY | 2024-11-08 12:02 | XMS_ITS | Clinical Summary ---
Author Organization [facility] Address [address] [place] [address] Care Team Providers Care Food Photographer Name Role Phone Diane Polanco MD Primary Care Provider [phone] Allergies No known active allergies Medications Medication [...] age to complete this topic Care Teams Food Photographer Relationship Specialty Start Date End Date Diane Polanco MD [address] [place] [address] PCP - General Barratte Operator 04/07/24
--- OUTSIDE RECORDS SUMMARY | 2024-11-08 12:02 | XMS_ITS | Encounter Summary ---
Author Organization [facility] Address [address] [place] [address] Care Team Providers Care Engineering Mathematician Name Role Phone Diane Polanco MD Primary Care Provider [phone] Encounter Details Date Type Department Care Team (Late st Contact Info) Description 11/05/2024 12:30 PM EDT Procedure visit [facility] [place] [facility] - [place] 16[address] [facility] [address] [place] [phone] Patrizia Burroughs NP 19 [facility] [address] [place] [address] Paroxysmal atrial fibrillation (CMS/HCC) (Primary Dx) Social History Tobacco Use Types Packs/Day Years [...] as of this encounter Progress Notes * Patrizia Burroughs NP - 11/05/2024 12:30 PM EDT Here for ECG prior to cardioversion documented in this encounter Plan of Treatment Upcoming Encounters Date Type Department Care Team (Latest Contact Info) Description 11/08/2024 1:00 PM EDT Appointment [facility] Non-Invasive Cardiology [address] [place] [phone] 11/08/2024 2:00 PM EDT Office Visit Cardiothoracic Surgery [facility] [address] [place] [phone] Kit Gonzalez MD [address] [place] [address] 11/09/2024 7:00 AM EDT Hospital Encounter [facility] Non-Invasive Cardiology [address] [place] [phone] Victoriano Hanley MD [address] [place] [phone] 11/12/[address] [place] [facility] [address] [phone] Lew Rollins LPN Pre-procedural cardiovascular examination 11/30/2024 4:00 PM EDT Office Visit [facility] [place] [facility] [address] [address] Victoriano Hanley MD [address] [place] [phone] documented as of this encounter Procedures Procedure Name Priority Date/Time Associated Diagnosis Comments ECG 12-LEAD Routine 11/05/2024 2:42 PM EDT Paroxysmal atrial fibrillation (CMS/HCC) documented in this encounter Results * ECG 12 lead (11/05/2024 2:42 PM EDT) Narrative Patrizia Burroughs NP - 11/05/2024 2:42 PM EDT Atrial fibrillation 113 bpm us Patrizia Heike JET BLADE POLISHER ECG ORDERABLES Final Result documented in this encounter Visit Diagnoses Diagnosis Paroxysmal atrial fibrillation (CMS/HCC)- Primary Atrial fibrillation Pre-procedural cardiovascular examination Pre-operative cardiovascular examination documented in this encounter Care Teams Engineering Mathematician Relationship Specialty Start Date End Date Diane Polanco MD [address] [place] [phone] PCP - General 04/07/24 documented as of this encounter
[2024-11-08 14:11] LABS: Anion Gap 12 (12-20); Blood Urea Nitrogen 14 mg/dL (9-16); Calcium 9.5 mg/dL (8.4-10.2); Carbon Dioxide 24 mmol/L (22-29); Chloride 108 mmol/L (96-108); Estimated Glomerular Filt Rate > 60; Glucose Random 98 mg/dL (60-115); Potassium 4.7 mmol/L (3.3-5.1); Sodium 139 mmol/L (135-145)
== END 2024-11-08 10:40 | disposition home or self-care (01) ==
LOC: HO.HMGCLDS 10:39
PROVIDERS: PCP Internal Medicine; Visit Provider Internal Medicine Cardiovascular Disease
DX: I50.9 Heart failure, unspecified (principal)
CPT/HCPCS: 36415; 80048

== ENCOUNTER 2025-05-10 06:30 | Outpatient (REF) | payer BC, SELFPAY ==
--- OUTSIDE RECORDS SUMMARY | 2024-05-20 09:04 | XMS_ITS | Encounter Summary ---
Author Organization [facility] Address [address] [place] [address] Care Team Providers Care Line Tender Name Role Phone Diane Polanco MD Primary Care Provider [phone] Encounter Details Date Type Department Care Team (Latest Contact Info) Description 05/20/2024 9:04 AM EDT Hospital Encounter TH HISTORIC ENCOUNTERS EASTERN CONVERSION ONLY Mixed hyperlipidemia; Aneurysm of the ascending aorta, without rupture (CMS/HCC V24) Social History Tobacco Use Types Packs/Day Years Used Date Smoking Tobacco: Never Smokeless Tobacco: Never Alcohol Use Standard Drinks/Week Comments Not Currently 8 (1 standard drink = 0.6 oz pur e alcohol) soc Interpersonal Safety Answer Date Record ed Physical Abuse Unrecognized value 10/03/2024 Verbal Abuse Unrecognized value 10/03/2024 Sex and Gender Information Value Date Recorded Sex Assigned at Male 09/01/2024 2:12 PM EST Legal Sex Male 2:42 PM EST Gender Identity Male 09/01/2024 2:12 PM EST Sexual Orientation Straight 09/08/2024 11 :28 AM EST documented as of this encounter Last Filed Vital Signs Vital Sign Reading Time Taken Comments Blood Pressure - - Pulse - - Temperature - - Respiratory Rate - - Oxygen Saturation - - Inhaled Oxygen Concentration - - Weight 108 kg (237 lb) 04/15/2024 10:13 AM EDT Height 190.5 cm (6' 3 ) 04/15/2024 10:13 AM EDT Body Mass Index 29.62 04/15/2024 10:13 AM EDT documented in this encounter Plan of Treatment Not on file documented as of this encounter Procedures Procedure Name Priority Date/Time Associated Diagnosis Comments TRANSTHORACIC ECHOCARDIOGRAM (TTE) COMPLETE (CONTRAST/BUBBLE/3D/JASON CARDIAL STRAIN PRN) Routine 05/20/2024 9:32 AM EDT Mixed hyperlipidemia Aneurysm of the ascending aorta, without rupture ([facility]/HCC V24) documented in this encounter Results * Transthoracic Echocardiogram (Tte) Complete (Contrast/Bubble/3D/Myocardial Strain Prn) (05/20/2024 9:32 AM EDT) Anatomical Region Laterality Modality Other 05/20/2024 Narrative 05/20/2024 9:32 AM EDT Report completed outside of [facility]. Refer to scanned document and/or notes for final report. Not Vldtd Procedure Note Historical, Cardiovascular Results, MD - 06/08/2024 Report completed outside of [facility]. Refer to scanned document and/or notesfor final report. Not Vldtd us Victoriano Hanley MD CV HISTORICAL CONV PROCEDURES Final Result documented in this encounter Visit Diagnoses Diagnosis Mixed hyperlipidemia Aneurysm of the ascending aorta, without rupture (CMS/HCC V24) documented in this encounter Care Teams Line Tender Relationship Specialty Start Date End Date Diane Polanco MD [address] [place] [address] PCP - General 04/07/24 documented as of this encounter
--- OUTSIDE RECORDS SUMMARY | 2025-05-10 06:33 | XMS_ITS | Clinical Summary ---
Author Organization [facility] Address [address] [place] [address] Phone Care Team Providers Care Car Jockey Name Role Phone Diane Polanco MD Primary Care Provider [phone] Allergies No known active allergies Medications rosuvastatin (CRESTOR) 20 mg tablet Take 1 tablet (20 mg total) by mouth 1 (one) time each day. 4 Active amiodarone (PACERONE) 200 mg tabletIndications :atrial fibrillation Take 1 tablet (200 mg total) by mouth 1 (one) time each day. 30 each 1 10/10/2024 12:31 PM EST 5 10/11/19 26 Active acetaminophen (TYLENOL) 325 mg tablet Take 1 tablet (325 mg total) by mouth every 6 (six) hours if needed for mild pain. Active docusate sodium (COLACE) 50 mg capsule Take 1 capsule (50 mg total) by mouth 1 (one) time each day. Active apixaban (Eliquis) 5 mg tablet Take 1 tablet (5 mg total) by mouth 2 (two) times a day. 180 each 1 5 Active metoprolol succinate (TOPROL-XL) 25 mg 24 hr tablet Take 75 MG ( 25 MG & 50 MG tab total) every morning & 50 MG tablet every evening by mouth . 90 each 3 5 Active metoprolol succinate (TOPROL-XL) 50 mg 24 hr tablet Take 75 MG ( 25 MG & 50 MG tab total) every morning & 50 MG tablet every evening by mouth . 180 tablet 3 5 Active Active Problems Problem Noted Date Diagnosed Date Paroxysmal atrial fibrillation (CMS/HCC V24, [facility] V28) 10/04/2024 History of aortic root repair 10/04/2024 Ascending aortic aneurysm ([facility] V24) 10/03/19 25 Aneurysm of ascending aorta without rupture ([facility] V24) 10/03/2024 Hypertension 09/03/2024 GERD (gastroesophageal reflux disease) HLD (hyperlipidemia) Overview (09/23/2024): DX:HLD (hyperlipidemia) Thoracic aortic aneurysm ([facility] V24) Overview (09/23/2024): DX:Thoracic aortic aneurysm (HCC) Surgical History Surgery Date Site/Laterality Comments CYST REMOVAL Right foot & back VASECTOMY Medical History Medical History Date Comments Thoracic aortic aneurysm ([facility] V24) DX:Thoracic aortic aneurysm (HCC) HLD (hyperlipidemia) DX:HLD (hyp erlipidemia) Hypertension Borderline GERD (gastroesophageal reflux disease) Graff's esophagus Heart murmur Arrhythmia Family History Medical History Relation Name Comments [...] Sign Reading Time Taken Comments Blood Pressure 103/71 11/08/2024 1:55 PM EDT Pulse 115 11/08/2024 1:55 PM EDT Temperature 37.3 C (99.1 F) 10/10/2024 3:00 AM EST Respiratory Rate 18 11/08/2024 1:55 PM EDT Oxygen Saturation 96% 11/08/2024 1:55 PM EDT Inhaled Oxygen Concentration - - Weight 103 kg (226 lb) 11/08/2024 1:55 PM EDT Height 190.5 cm (6' 3 ) 11/08/2024 1:55 PM EDT Body Mass Index 28.25 11/08/2024 1:55 PM EDT Plan of Treatment Health Maintenance Due Date Last Done Comments Colorectal Cancer Screening: Colonoscopy 1968 DTaP,Tdap,and Td Vaccines (1 - Tdap) 11/20/1987 Hepatitis A Vaccines (1 of 2 - Risk 2-dose series) 11/20/1987 Hepatitis B Vaccines (1 of 3 - 19+ 3-dose series) 11/20/1987 Pneumococcal Vaccine: 50+ Years (1 of 1 - PCV) 2018 Zoster Vaccines (1 of 2) 2018 HIV Screening 09/09/2023 Hepatitis C Screening 09/09/2023 Social Influencers of Health Screening 09/09/2023 Depression Screening 08/11/2024 COVID-19 Vaccine ( - 2023- season) 2025 Influenza Vaccine (#1) 2025 Hypertension/CHF/CAD Annual BMP Blood Test 10/08/2025 10/08/2024, 10/06/2024, 10/05/2024, Additional history exists Cholesterol Screening (Lipid Panel) 09/23/2029 09/23/2024 RSV Immunization Adult Patients (1 - 1-dose 75+ series) 11/20/2043 HIB Vaccines Aged Out No longer eligi [...] age to complete this topic Meningococcal B Vaccine Aged Out No l onger eligible based on patient's age to complete this topic RSV Immunization Patients Under 20 months Aged Out No longer eligible based on patient's age to complete this topic Varicella Vaccines Aged Out No longer eligible based on patient's age to complete this topic Medical Devices Implanted Type Area Pilot Teacher Device Identifier Shelf Expiration Date Model / Serial / Lot Surgiflo Hemostatic Matrix - Sna - [id number] Implanted:Qt y: 2 on 10/04/2024 by Kti Gonzalez MD at [facility] Hemostasis N/A: Chest [employer] 06/17/2026 [id number] / [id number] / [id number] Cable Strnl 3 Blnt 1 Cut 4pk - Sna - [id number] Implanted:Qt y: 1 on 10/04/2024 by Kit Gonzalez MD at [facility] Internal and External Fixation N/A: Sternum BIOMET MICROFIXN- A AND E MED ITEMS 05/27/2029 [id number] / [id number] / [id number] System Perclose Prostyle Suture Medicated - [id number] - [id number] Implanted:Qt y: 1 on 09/10/2024 by Kit Houser DO at [facility] Vascular Closure Devices Right: Wrist [employer] [id number] 07/10/2026 [id number] / [id number] / [id number] Graft Vasc Valsalva [id number] Gelweave - [id number] - [id number] Implanted:Qt y: 1 on 10/04/2024 by Kit Gonzalez MD at [facility] Vascular Grafts N/A: Heart [employer] 02/07/2027 [id number] / [id number] / [id number] Procedures Procedure Name Priority Date/Time Associated Diagnosis Comments COMPREHENSIVE METABOLIC PANEL Timed 10/08/2024 3:38 AM EST LIPID PANEL WITH REFLEX TO DIRECT LDL Routine 09/23/2024 8:15 AM EST Pre-op testing from Last 3 Months or Most Recently Relevant to Health Maintenance Results * (ABNORMAL) Comprehensive metabolic panel (10/08/2024 3:38 AM EST) [facility] Sodium 136 135 - 145 mmol/L LAB CHEMISTRY METHOD 10/08/2024 4:41 AM [facility] Potassium 3.7 3.5 - 5.1 mmol/L LAB CHEMISTRY METHOD 10/08/2024 4:41 AM [facility] Chloride 99 98 - 107 mmol/L LAB CHEMISTRY METHOD 10/08/2024 4:41 AM [facility] CO2 28 24 - 32 mmol/L LAB CHEMISTRY METHOD 10/08/2024 4:41 AM [facility] Anion Gap 9 5 - 14 LAB CHEMISTRY METHOD 10/08/2024 4:41 AM [facility] Glucose 109 70 - 199 mg/dL LAB CHEMISTRY METHOD 10/08/2024 4:41 AM [facility] BUN 24(H) 9 - 20 mg/dL LAB CHEMISTRY METHOD 10/08/2024 4:41 AM [facility] Creatinine 0.90 0.70 - 1.30 mg/dL LAB CHEMISTRY METHOD 10/08/2024 4:41 AM [facility] eGFR 101 >=60 mL/min/1. 73m2 LAB CHEMISTRY METHOD 10/08/2024 4:41 AM [facility] Comment:Calculation based on the Chronic Kidney Disease Epidemiology Collaboration (CKD-EPI) equation refit without adjustment for race. BUN/Creatinine Ratio 26.7(H) 12.0 - 20.0 LAB CHEMISTRY METHOD 10/08/2024 4:41 AM [facility] Calcium 8.6 8.4 - 10.2 mg/dL LAB CHEMISTRY METHOD 10/08/2024 4:41 AM [facility] AST (SGOT) 36 5 - 40 unit/L LAB CHEMISTRY METHOD 10/08/2024 4:41 AM [facility] ALT (SGPT) 29 7 - 52 unit/L LAB CHEMISTRY METHOD 10/08/2024 4:41 AM EST [facility] Alkaline Phosphatase 76 34 - 104 unit/L LAB CHEMISTRY METHOD 10/08/2024 4:41 AM EST [facility] Total Protein 5.9(L) 6.4 - 8.5 g/dL LAB CHEMISTRY METHOD 10/08/2024 4:41 AM EST [facility] Albumin 3.5 3.5 - 5.0 g/dL LAB CHEMISTRY METHOD 10/08/2024 4:41 AM EST [facility] Total Bilirubin 1.5(H) 0.3 - 1.0 mg/dL LAB CHEMISTRY METHOD 10/08/2024 4:41 AM [facility] Blood Venous blood specimen / Unknown Venipuncture / Unknown 10/08/2024 3:38 AM EST 10/08/2024 3:57 AM EST Fred FIGUEROA LAB BLOOD ORDERABLES Final Resul t [facility] [address] [place] [address], [place] [phone] * (ABNORMAL) Lipid panel with reflex to direct LDL (09/23/2024 8:15 AM EST) Cholesterol 187 0 - 200 mg/dL LAB CHEMISTRY METHOD 09/23/2024 9:28 AM [facility] Triglycerides 158(H) <150 mg/dL LAB CHEMISTRY METHOD 09/23/2024 9:28 AM [facility] HDL 54 32 - 70 mg/dL LAB CHEMISTRY METHOD 09/23/2024 9:28 AM [facility] LDL Calculated 101 50 - 130 mg/dL LAB CHEMISTRY METHOD 09/23/2024 9:28 AM [facility] VLDL Cholesterol Clint 31.6 mg/dL LAB CHEMISTRY METHOD 09/23/2024 9:[address] [facility] Comment:No established refer ence range. Blood Venous blood specimen / Unknown Venipuncture / Unknown 09/23/2024 8:15 AM EST 09/23/2024 8:54 AM EST us Kit Gonzalez MD LAB BLOOD ORDERABLES Fin al Result [facility] ([facility] [address] [place] [address], [place] [phone] from Last 3 Months or Most Recently Relevant to Health Maintenance Insurance [facility] Advance Directives * Full Code - Confirmed [...] currently active code status orders. Care Teams Car Jockey Relationship Specialty Start Date End Date Diane Polanco MD [address] [place] [address] PCP - General 04/07/24
--- OUTSIDE RECORDS SUMMARY | 2025-05-10 06:33 | XMS_ITS | Clinical Summary ---
Author Organization [facility] Address [address] [place] [address] Care Team Providers Care Road Passenger Firer Name Role Phone LoraDiane villareal Primary Care Provider [phone] Allergies No known active allergies Medications acetaminophen (TYLENOL) 325 mg tablet Take 325 mg by mouth every 6 hours. Active apixaban (ELIQUIS) 5 mg tablet Take 5 mg by mouth every 12 hours. 10/25/2024 Active omeprazole (PriLOSEC) 20 mg capsule Take 20 mg by mouth once a day. 03/22/2024 Active rosuvastatin (CRESTOR) 20 mg tablet Take 20 mg by mouth daily. 02/25/2023 Active Active Problems Problem Noted Date Diagnosed Date Atrial flutter 11/24/2024 Assessment & Plan (11/24/2024 1:05 PM EDT): Nikhil has evidence of atrial flutter on his twelve-lead EKG which was also present on previous EKG after I requested records. I was able to review all his records as outlined above, but was not able to obtain his actual operative report as yet. I did request the operative report to ascertain any information if his atrium was incised or cannulated as well that may increase the risk of scar related flutter. Regarding anticoagulation, [id number] score is 0. Currently taking Eliquis 5 mg twice daily since October 26, 2024. We discussed that his overall stroke risk is elevated compared to that of the population while having atrial flutter, though risk of bleeding would outweigh that of stroke risk reduction which is underpinnings are major societal guidelines statements, and we do not recommend long-term anticoagulation outside of performing procedures for this reason. For rate control, currently takes metoprolol succinate 125 mg daily along with amiodarone 200 mg daily. We went over similarities and differences between atrial fibrillation and atrial flutter. Currently his rate is reasonably well- controlled though he still has palpitations. Given that he has no history of clinical atrial fibrillation outside of cardiac surgery, we discussed a couple of options going forward for his atrial flutter. The first course of action we discussed is ablation for the atrial flutter given his potentially curative. The other more conservative approach would be to perform cardioversion for atrial flutter followed by discontinuing the medications in a stepwise fashion and to see if his flutter recurs. After going over these options in detail, he would like to proceed with a more conservative strategy by planning for cardioversion. We went over technique and risk of cardioversion. He confirms he has been 100 percent compliant with his Eliquis 5 mg twice daily for at least the last 3 weeks. We discussed that it would be reasonable to discontinue both amiodarone and metoprolol after the cardioversion immediately, along with discontinuing Eliquis 1 month following cardioversion. We also discussed a course of action of him continue to monitor his heart rate and blood pressure at home while in sinus rhythm and potentially purchasing a Kardia mobile device which I showed him today. After this, with shared decision making, we came up following plan: Blood work today Case request entered for cardioversion. He knows to continue on Eliquis 5 mg twice daily without any missed doses including the day of cardioversion. Plan to discontinue metoprolol and amiodarone following cardioversion Plan to continue Eliquis for 1 month following cardioversion Monitor heart rate and blood pressure at home after cardioversion and potentially purchase Kardia mobile device. Hx of ascending aorta replacement 11/24/2024 Assessment & Plan (11/24/2024 1:05 PM EDT): Status post aortic valve sparing root replacement. I did request operative report for details Postoperative atrial fibrillation 11/24/2024 Assessment & Plan (11/24/2024 1:01 PM EDT): Nikhil had post-cardiac surgery atrial fibrillation which was symptomatic. He has a normal left atrial size and previously had no evidence of atrial fibrillation. As such he had a reversible cause of atrial fibrillation. It appears as though amiodarone has organized his atrial fibrillation into atrial flutter. See atrial flutter section above. Graff's esophagus without dysplasia 11/24/2024 Assessment & Plan (11/24/2024 1:05 PM EDT): He endorses history of Graff's esophagus/GERD. Takes omeprazole Dyslipidemia 11/24/2024 Assessment & Plan (11/24/2024 1:05 PM EDT): Remains on rosuvastatin 20 mg daily. Encounters Date Type Department Care Team Description 05/05/2025 Results Follow-Up [address] Cardiology Medicine [address] [place] [phone] Creative Producer: Jay Peters MD 04/20/2025 8:00 AM EDT Follow-Up [address] Cardiology [address] [address] Creative Producer: Pam Hernandez PA Postoperative atrial fibrillation (HCC) (Primary Dx); Palpitations 03/07/2025 9:20 AM EDT - 03/07/2025 11:59 PM EDT Hospital Encounter [facility] [address] [place] [id number] Postoperative atrial fibrillation (HCC) Discharge Disposition: Home or Self Care () 02/28/2025 Orders Only [address] Cardiology [address] [id number] Creative Producer: Jay Peters MD Postoperative atrial fibrillation (HCC) (Primary Dx) 02/25/[address] [place] [address] Creative Producer: Jay Peters MD from Last 3 Months Social History Tobacco Use Types Packs/Day Years Used Date Smoking Tobacco: Never Smokeless Tobacco: Never Tobacco Cessation:Counseling Given: Not Answered Sex and Gender Information Value Date Recorded Sex Assigned at Male 11/22/2024 12:56 PM EDT Legal Sex Male 12:55 PM EDT Gender Identity Male 11/22/2024 1:24 PM EDT Sexual Orientation Straight 11/22/2024 1: 24 PM EDT Last Filed Vital Signs Vital Sign Reading Time Taken Comments Blood Pressure 142/82 04/20/2025 8:06 AM EDT Pulse 61 04/20/2025 8:06 AM EDT Temperature 36.9 C (98.4 F) 11/26/2024 10:40 AM EDT Respiratory Rate 16 04/20/2025 8:06 AM EDT Oxygen Saturation 96% 04/20/2025 8:06 AM EDT Inhaled Oxygen Concentration - - Weight 108 kg (238 lb 1.6 oz) 04/20/2025 8:06 AM EDT Height 190.5 cm (6' 3 ) 04/20/2025 8:06 AM EDT Body Mass Index 29.76 04/20/2025 8:06 AM EDT Plan of Treatment Upcoming Encounters Date Type Department Care Team (Late st Contact Info) Description 06/01/2025 7:30 AM EDT Appointment [facility] Cardiac Ultrasound [address] [place] [address] 06/01/2025 9:20 AM EDT Follow-Up [facility] 4th floor Cardiology Medicine [address] [place] [address] Creative Producer: Jay Peters MD [address] [place] [address] Health Maintenance Due Date Last Done Comments Cologuard 1968 Colonoscopy 1968 HIV Screening 1968 Hepatitis C Screening 1968 Sigmoidoscopy 1968 Hepatitis B Vaccines (1 of 3 - 19+ 3-dose series) 11/20/1987 DTaP,Tdap,and Td Vaccines (1 - Tdap) 1990 Pneumococcal Vaccine: 50+ Ye ars (1 of 1 - PCV) 2018 Zoster Vaccines (1 of 2) 2018 Alcohol/Substance Use Screening 08/11/2024 Depression Screening and Follow-Up 08/11/2024 Social Drivers of Health Tonja ual Screening 08/11/2024 COVID-19 Vaccine (5 - 2024-2 6 season) 2025 09/11/2022, 07/17/2021, 10/16/2020, Additional history exists Influenza Vaccine (#1) 2025 Colon Cancer Screening 09/23/2025 FOBT / Fit Test 09/23/2025 09/23/2024 Diabetes Screening 11/25/2027 11/24/2024, 0 10/08/2024, 10/06/2024, Additional history exists RSV Vaccine (60+ years old a nd patients) (1 - 1-dose 75+ series) 11/20/2043 Procedures * Due to [place] Gertrude law, this organization might not be sharing negative HIV tests. Procedure Name Priority Date/Time Associated Diagnosis Comments ECG 12-LEAD Routine 04/20/2025 8:08 AM EDT Postoperative atrial fibrillation (HCC) MOBILE CARDIAC MANAGER FUND (MCOT) 30 DAY MAIL OUT Routine 04/08/2025 2:32 PM EDT Postoperative atrial fibrillation (HCC) COMPREHENSIVE METABOLIC PANEL Routine 11/24/2024 1:36 PM EDT Atrial flutter, unspecified type (HCC) from Last 3 Months or Most Recently Relevant to Health Maintenance Results * Due to [place] Gertrude law, this organization might not be sharing negative HIV tests. * ECG 12 lead (04/20/2025 8:08 AM EDT) Ventricular Rate EKG 60 BPM MUSE EKG Atrial Rate 60 BPM MUSE EKG RI Interval 166 ms MUSE EKG QRS Interval 90 ms MUSE EKG QT Interval 418 ms MUSE EKG QTC Interval 418 ms MUSE EKG P [place] 46 degrees MUSE EKG R [place] 51 degrees MUSE EKG T Wave [place] 45 degrees MUSE EKG 04/20/2025 8:08 AM EDT 04/24/2025 7:55 PM EDT Impressions MUSE EKG - 04/24/2025 7:55 PM EDT NORMAL SINUS RHYTHM NORMAL ECG WHEN COMPARED WITH ECG OF 23-Dec-2024 09:56, NO SIGNIFICANT CHANGE WAS FOUND Confirmed by Manjinder Gil ([id number]) on 04/24/2025 7:55:24 PM Narrative Procedure Note Manjinder Gil MD - 04/24/2025 IMPRESSION: NORMAL SINUS RHYTHM NORMAL ECG WHEN COMPARED WITH ECG OF 23-Dec-2024 09:56, NO SIGNIFICANT CHANGE WAS FOUND Confirmed by Manjinder Gil ([id number]) on 04/24/2025 7:55:24 PM Pam FIGUEROA ECG ORDERABLES Final Re sult MUSE EKG * MOBILE CARDIAC MANAGER FUND (MCOT) 30 DAY MAIL OUT (04/08/2025 2:32 PM EDT) Anatomical Region Laterality Modality Monitor Room Narrative 05/05/2025 10:17 AM EDT ATTENDING ADDENDUM: This was a Mobile Cardiac Dispatcher Refinery (MCOT) 30 Day. This study was for Postoperative atrial fibrillation (HCC). Findings and conclusions are based on activations and events available for review. Findings: The predominant rhythm was sinus rhythm. Findings and Activations per primary report unless otherwise specified here. No AF Sixteen runs of non-sustained SVT consistent with atrial runs. There were several patient triggered episodes for review. These generally correlated to sinus without ectopy, though on a two strips, an isolated PVC was seen. Some strips were marred by baseline artifact through were consistent with sinus. No symptoms were reported on this study. Conclusions: No convincing atrial fibrillation seen. See above for the remainder of the findings. Patient triggered episodes detailed above. us Jay Ordaz MD CV CARDIAC SERVICES PROCEDUR ES Final Result * (ABNORMAL) Comprehensive Metabolic Panel (11/24/2024 1:36 PM EDT) NA 141 135 - 145 mmol/L 11/24/2024 2:27 PM EDT [facility] K 4.4 3.5 - 5.3 mmol/L 11/24/2024 2:27 PM EDT [facility] Cl 106 98 - 107 mmol/L 11/24/2024 2:27 PM EDT [facility] CO2 24 22 - 32 mmol/L 11/24/2024 2:27 PM EDT [facility] Anion Gap 11 5 - 15 11/24/2024 2:27 PM EDT [facility] Glucose 101(H) 65 - 99 mg/dL 11/24/2024 2:27 PM EDT [facility] Creatinine 0.88 0.60 - 1.30 mg/dL 11/24/2024 2:27 PM EDT [facility] Calcium 9.3 8.6 - 10.5 mg/dL 11/24/2024 2:27 PM EDT [facility] Total Protein 6.8 6.0 - 8.0 g/dL 11/24/2024 2:27 PM EDT [facility] Albumin 4.3 3.5 - 5.2 g/dL 11/24/2024 2:27 PM EDT [facility] Bilirubin, Total 0.5 0.2 - 1.2 mg/dL 11/24/2024 2:27 PM EDT [facility] Alkaline Phosphatase 107 35 - 129 U/L 11/24/2024 2:27 PM EDT [facility] AST 15 10 - 40 U/L 11/24/2024 2:27 PM EDT [facility] ALT 29 10 - 40 U/L 11/24/2024 2:27 PM EDT [facility] BUN 16 7 - 23 mg/dL 11/24/2024 2:27 PM EDT [facility] eGFR >90 >=60 mL/min/1. 73m2 11/24/2024 2:27 PM EDT [facility] Comment:The estimated glomer ular filtration rate (eGFR) is calculated using a new formula developed by the NKF-ASN task force to eliminate race-based correction factors. The new formula uses serum/plasma creatinine, age, and gender to determine eGFR. A value below 60mls/min might indicate kidney disease and will be flagged. For additional information, see Heidi et al, Am J Kidney Dis. 2021;79(2):268- 288, A Unifying Approach for GFR estimation: Recommendations of the NKF-ASN Task Force on Reassessing the Inclusion of Race in Diagnosing Kidney Disease . Globulin, Total 2.5 2.1 - 4.2 g/dL 11/24/2024 2:27 PM EDT [facility] A/G Ratio 1.7 1.5 - 3.0 11/24/2024 2:27 PM EDT [facility] Blood Structure of peripheral vein / Unknown Venipuncture / Unknown 11/24/2024 1:36 PM EDT 11/24/2024 1:52 PM EDT us Jay Ordaz MD LAB BLOOD ORDERABLES Final R esult [facility] [address] [place] [address], from Last 3 Months or Most Recently Relevant to Health Maintenance Insurance [facility] HMO/POS Advance Directives * Full Code (Latest Code Status on File) Date Activated Date Inactivated Comments 11/26/2024 11:56 AM 11/26/2024 3:10 PM * Full Code Date Activated Date Inactivated Comments 11/26/2024 10:26 AM 11/26/2024 11:[address] Passenger Firer Relationship Specialty Start Date End Date Diane Polanco [address] [place] [address] PCP - General Internal Medicine 11/24/24
--- OUTSIDE RECORDS SUMMARY | 2025-05-10 06:33 | XMS_ITS | Encounter Summary ---
Author Organization [facility] Address [address] [place] [address] Care Team Providers Care Combination Operator Name Role Phone Diane Polanco Primary Care Provider [phone] Encounter Details Date Type Department Care Team (Late st Contact Info) Description 05/05/2025 Results Follow-Up [facility] 4th floor Cardiology Medicine [address] [place] [address] Lean Manufacturing Leader: Lola Ordaz, Jay Walker MD [address] [place], [place] [id number] Social History Tobacco Use Types Packs/Day Years Used Date Smoking Tobacco: Never Smokeless Tobacco: Never Sex and Gender Information Value Date Recorded Sex Assigned at Male 11/22/2024 12:56 PM EDT Legal Sex Male 12:55 PM EDT Gender Identity Male 11/22/2024 1:24 PM EDT Sexual Orientation Straight 11/22/2024 1: 24 PM EDT documented as of this encounter Plan of Treatment Upcoming Encounters Date Type Department Care Team (Late st Contact Info) Description 06/01/2025 7:30 AM EDT Appointment [facility] Cardiac Ultrasound [address] [place] [address] 06/01/2025 9:20 AM EDT Follow-Up [facility] 4th floor Cardiology Medicine [address] [place] [address] Lean Manufacturing Leader: Jay Peters MD [address] [place] [phone] documented as of this encounter Visit Diagnoses Not on filedocumented in this encounter Care Teams Combination Operator Relationship Specialty Start Date End Date Diane Polanco [address] [place] [address] PCP - General Internal Medicine 11/24/24 documented as of this encounter
--- OUTSIDE RECORDS SUMMARY | 2025-05-10 06:33 | XMS_ITS ---
Author Name [facility] Organization Unknown Results Test Name/Text Value Interpretation Date Range Source Potassium SerPl-sCnc 3.4 mmol/L Below low normal 10/10/2024 3.5 - 5.1 [facility] Magnesium SerPl-mCnc 2.3 mg/dL Normal 10/10/2024 1.7 - 2.8 [facility] Potassium SerPl-sCnc 4.0 mmol/L Normal 10/09/2024 3.5 - 5.1 [facility] Magnesium SerPl-mCnc 2.5 mg/dL Normal 10/09/2024 1.7 - 2.8 [facility] Magnesium SerPl-mCnc 2.3 mg/dL Normal 10/08/2024 1.7 - 2.8 [facility] BUN/Creat SerPl 26.7 Above high normal 10/08/2024 12 - 20 [facility] Potassium SerPl-sCnc 3.7 mmol/L Normal 10/08/2024 3.5 - 5.1 [facility] Creat SerPl-mCnc 0.9 mg/dL Normal 10/08/2024 0.7 - 1.3 [facility] AST SerPl-cCnc 36.0 unit/L Normal 10/08/2024 5 - 40 [facility] ALT SerPl-cCnc 29.0 unit/L Normal 10/08/2024 7 - 52 [facility] Chloride SerPl-sCnc 99.0 mmol/L Normal 10/08/2024 98 - 107 [facility] Anion Gap SerPl-sCnc 9.0 Normal 10/08/2024 5 - 14 [facility] eGFRcr SerPlBld CKD-EPI 2020 101.0 mL/min/1.73m2 Normal 10/08/2024 - [facility] Bilirub SerPl-mCnc 1.5 mg/dL Above high normal 10/08/2024 0. 3 - 1 [facility] Prot SerPl-mCnc 5.9 g/dL Below low normal 10/08/2024 6.4 - 8.5 [facility] Sodium SerPl-sCnc 136.0 mmol/L Normal 10/08/2024 135 - 14 5 [facility] CO2 SerPl-sCnc 28.0 mmol/L Normal 10/08/2024 24 - 32 [facility] Albumin SerPl-mCnc 3.5 g/dL Normal 10/08/2024 3.5 - 5 [facility] Glucose SerPl-mCnc 109.0 mg/dL Normal 10/08/2024 70 - 199 [facility] Calcium SerPl-mCnc 8.6 mg/dL Normal 10/08/2024 8.4 - 10.2 [facility] ALP SerPl-cCnc 76.0 unit/L Normal 10/08/2024 34 - 104 [facility] BUN SerPl-mCnc 24.0 mg/dL Above high normal 10/08/2024 9 - 2 0 [facility] Ca-I Bld-mCnc 1.18 mg/dL Below low normal 10/08/2024 1.19 - 1.35 [facility] MCHC RBC Auto-mCnc 34.2 g/dL Normal 10/08/2024 32 - 36 [facility] Platelet # Bld Auto 180.0 K/mcL Normal 10/08/2024 150 - 450 [facility] PMV Bld Auto 8.6 FL Normal 10/08/2024 7.4 - 11.4 [facility] Hgb Bld-mCnc 8.6 g/dL Below low normal 10/08/2024 13.5 - 18 [facility] MCH RBC Qn Auto 32.1 pcg Normal 10/08/2024 25 - 33 [facility] RDW RBC Auto-Rto 12.2 % Normal 10/08/2024 12.1 - 17.7 [facility] RBC # Bld Auto 2.69 M/mcL Below low normal 10/08/2024 4.7 - 6 [facility] MCV RBC Auto 93.7 FL Normal 10/08/2024 78 - 100 [facility] Hct VFr Bld Auto 25.2 % Below low normal 10/08/2024 40 - 54 [facility] WBC # Bld Auto 9.1 K/mcL Normal 10/08/2024 4 - 10.5 [facility] Potassium SerPl-sCnc 3.6 mmol/L Normal 10/07/2024 3.5 - 5.1 [facility] Glucose Bld-mCnc 100.0 mg/dL Normal 10/06/2024 70 - 199 [facility] Glucose Bld-mCnc 135.0 mg/dL Normal 10/06/2024 70 - 199 [facility] Glucose Bld-mCnc 121.0 mg/dL Normal 10/06/2024 70 - 199 [facility] Glucose Bld-mCnc 152.0 mg/dL Normal 10/06/2024 70 - 199 [facility] CO2 SerPl-sCnc 25.0 mmol/L Normal 10/06/2024 24 - 32 [facility] Anion Gap SerPl-sCnc 6.0 Normal 10/06/2024 5 - 14 [facility] eGFRcr SerPlBld CKD-EPI 2020 105.0 mL/min/1.73m2 Normal 10/06/2024 - [facility] Calcium SerPl-mCnc 7.9 mg/dL Below low normal 10/06/2024 8.4 - 10.2 [facility] Creat SerPl-mCnc 0.8 mg/dL Normal 10/06/2024 0.7 - 1.3 [facility] Sodium SerPl-sCnc 134.0 mmol/L Below low normal 10/06/2024 1 35 - 145 [facility] Glucose SerPl-mCnc 138.0 mg/dL Above high normal 10/06/2024 70 - 99 [facility] Chloride SerPl-sCnc 103.0 mmol/L Normal 10/06/2024 98 - 107 [facility] BUN SerPl-mCnc 15.0 mg/dL Normal 10/06/2024 9 - 20 [facility] BUN/Creat SerPl 18.8 Normal 10/06/2024 12 - 20 [facility] Potassium SerPl-sCnc 4.0 mmol/L Normal 10/06/2024 3.5 - 5.1 [facility] Magnesium SerPl-mCnc 2.1 mg/dL Normal 10/06/2024 1.7 - 2.8 [facility] Platelet # Bld Auto 119.0 K/mcL Below low normal 10/06/2024 150 - 450 [facility] Lymphocytes/leuk NFr Bld Auto 4.8 % Below low normal 10/06/2024 20 - 48 [facility] MCH RBC Qn Auto 31.8 pcg Normal 10/06/2024 25 - 33 [facility] WBC # Bld Auto 11.0 K/mcL Above high normal 10/06/2024 4 - 1 0.5 [facility] Lymphocytes # Bld Auto 0.5 K/mcL Below low normal 10/06/2024 1 - 3.2 [facility] MCV RBC Auto 93.4 FL Normal 10/06/2024 78 - 100 [facility] MCHC RBC Auto-mCnc 34.0 g/dL Normal 10/06/2024 32 - 36 [facility] Basophils/leuk NFr Bld Auto 0.2 % Normal 10/06/2024 0 - 2 [facility] Monocytes/leuk NFr Bld Auto 11.5 % Normal 10/06/2024 2 - 12 [facility] Hgb Bld-mCnc 9.3 g/dL Below low normal 10/06/2024 13.5 - 18 [facility] PMV Bld Auto 9.0 FL Normal 10/06/2024 7.4 - 11.4 [facility] Monocytes # Bld Auto 1.3 K/mcL Above high normal 10/06/2024 0 - 0.8 [facility] RDW RBC Auto-Rto 12.6 % Normal 10/06/2024 12.1 - 17.7 [facility] Neutrophils/leuk NFr Bld Auto 83.5 % Above high normal 10/06/2024 44 - 74 [facility] Eosinophil/leuk NFr Bld Auto 0.0 % Normal 10/06/2024 0 - 6 [facility] Neutrophils # Bld Auto 9.2 K/mcL Above high normal 10/06/2024 1.8 - 7.8 [facility] Hct VFr Bld Auto 27.3 % Below low normal 10/06/2024 40 - 54 [facility] RBC # Bld Auto 2.93 M/mcL Below low normal 10/06/2024 4.7 - 6 [facility] Basophils # Bld Auto 0.0 K/mcL Normal 10/06/2024 0 - 0.2 [facility] Eosinophil # Bld Auto 0.0 K/mcL Normal 10/06/2024 0 - 0.5 [facility] Glucose Bld-mCnc 131.0 mg/dL Normal 10/06/2024 70 - 199 [facility] Glucose Bld-mCnc 146.0 mg/dL Normal 10/05/2024 70 - 199 [facility] Glucose Bld-mCnc 146.0 mg/dL Normal 10/05/2024 70 - 199 [facility] Glucose Bld-mCnc 140.0 mg/dL Normal 10/05/2024 70 - 199 [facility] Glucose Bld-mCnc 141.0 mg/dL Normal 10/05/2024 70 - 199 [facility] Base excess BldA Calc-sCnc -1.0 mmol/L Below low normal 10/07/2024 0 - 2 [facility] SaO2 % BldA 98.0 % Normal 10/07/2024 95 - 98 [facility] pO2 BldA 105.0 mmHg Normal 10/07/2024 80 - 105 [facility] pH BldA 7.44 Normal 10/07/2024 7.35 - 7.45 [facility] HCO3 BldA-sCnc 23.5 mmol/L Normal 10/07/2024 22 - 26 [facility] pCO2 BldA 34.4 mmHg Below low normal 10/07/2024 35 - 45 [facility] Sample Site POCT ART Normal 10/07/2024 [facility] Glucose Bld-mCnc 110.0 mg/dL Normal 10/05/2024 70 - 199 [facility] HCO3 BldA-sCnc 24.4 mmol/L Normal 10/05/2024 22 - 26 [facility] pH BldA 7.42 pH Normal 10/05/2024 7.35 - 7.45 [facility] pO2 BldA 153.0 mmHg Above high normal 10/05/2024 80 - 105 [facility] SaO2 % BldA 99.7 % Above high normal 10/05/2024 95 - 98 [facility] Base excess BldA Calc-sCnc -0.7 mmol/L Below low normal 10/05/2024 0 - 2 [facility] pCO2 BldA 36.0 mmHg Normal 10/05/2024 35 - 45 [facility] Glucose Bld-mCnc 142.0 mg/dL Normal 10/05/2024 70 - 199 [facility] Acute kidney injury risk NephroCheck 0.93 Above high normal 10/05/2024 - [facility] Glucose Bld-mCnc 136.0 mg/dL Normal 10/05/2024 70 - 199 [facility] Sodium SerPl-sCnc 139.0 mmol/L Normal 10/05/2024 135 - 14 5 [facility] BUN/Creat SerPl 15.5 Normal 10/05/2024 12 - 20 [facility] Anion Gap SerPl-sCnc 8.0 Normal 10/05/2024 5 - 14 [facility] Chloride SerPl-sCnc 106.0 mmol/L Normal 10/05/2024 98 - 107 [facility] Creat SerPl-mCnc 1.1 mg/dL Normal 10/05/2024 0.7 - 1.3 [facility] Glucose SerPl-mCnc 141.0 mg/dL Above high normal 10/05/2024 70 - 99 [facility] eGFRcr SerPlBld CKD-EPI 2020 79.0 mL/min/1.73m2 Normal 10/05/2024 - [facility] BUN SerPl-mCnc 17.0 mg/dL Normal 10/05/2024 9 - 20 [facility] CO2 SerPl-sCnc 25.0 mmol/L Normal 10/05/2024 24 - 32 [facility] Potassium SerPl-sCnc 4.2 mmol/L Normal 10/05/2024 3.5 - 5.1 [facility] Calcium SerPl-mCnc 7.7 mg/dL Below low normal 10/05/2024 8.4 - 10.2 [facility] Phosphate SerPl-mCnc 3.8 mg/dL Normal 10/05/2024 2.5 - 4.5 [facility] Magnesium SerPl-mCnc 2.3 mg/dL Normal 10/05/2024 1.7 - 2.8 [facility] Squamous #/area UrnS HPF 0.0 mmol/L Normal 10/05/2024 [facility] Cystine Cry #/area UrnS HPF 7.38 pH Normal 10/05/2024 7.35 - 7.45 [facility] pO2 BldMV 34.0 mmHg Normal 10/05/2024 [facility] Mucous Threads #/area UrnS HPF 24.0 mmol/L Normal 10/05/2024 [facility] Mixed Cell Casts #/area UrnS HPF 43.0 mmHg Normal 10/05/2024 [facility] Ca-I Bld-mCnc 1.1 mg/dL Below low normal 10/05/2024 1.19 - 1 .35 [facility] RDW RBC Auto-Rto 12.8 % Normal 10/05/2024 12.1 - 17.7 [facility] MCH RBC Qn Auto 32.0 pcg Normal 10/05/2024 25 - 33 [facility] PMV Bld Auto 9.0 FL Normal 10/05/2024 7.4 - 11.4 [facility] MCHC RBC Auto-mCnc 35.1 g/dL Normal 10/05/2024 32 - 36 [facility] WBC # Bld Auto 8.6 K/mcL Normal 10/05/2024 4 - 10.5 [facility] Hct VFr Bld Auto 27.8 % Below low normal 10/05/2024 40 - 54 [facility] Platelet # Bld Auto 146.0 K/mcL Below low normal 10/05/2024 150 - 450 [facility] Hgb Bld-mCnc 9.8 g/dL Below low normal 10/05/2024 13.5 - 18 [facility] MCV RBC Auto 91.1 FL Normal 10/05/2024 78 - 100 [facility] RBC # Bld Auto 3.05 M/mcL Below low normal 10/05/2024 4.7 - 6 [facility] Base excess BldA Calc-sCnc 0.5 mmol/L Normal 10/05/2024 0 - 2 [facility] HCO3 BldA-sCnc 25.4 mmol/L Normal 10/05/2024 22 - 26 [facility] pO2 BldA 155.0 mmHg Above high normal 10/05/2024 80 - 105 [facility] pH BldA 7.43 pH Normal 10/05/2024 7.35 - 7.45 [facility] pCO2 BldA 37.0 mmHg Normal 10/05/2024 35 - 45 [facility] SaO2 % BldA 99.6 % Above high normal 10/05/2024 95 - 98 [facility] Glucose Bld-mCnc 148.0 mg/dL Normal 10/05/2024 70 - 199 [facility] Glucose Bld-mCnc 182.0 mg/dL Normal 10/05/2024 70 - 199 [facility] PT Bld 12.3 sec Normal 10/05/2024 10.5 - 13.3 [facility] INR PPP 1.0 Normal 10/05/2024 0.8 - 1.1 [facility] aPTT PPP 30.2 sec Normal 10/05/2024 25 - 37 [facility] Potassium SerPl-sCnc 4.8 mmol/L Normal 10/05/2024 3.5 - 5.1 [facility] Trigl SerPl-mCnc 114.0 mg/dL Normal 10/05/2024 - 150 [facility] Hgb Bld-mCnc 11.1 g/dL Below low normal 10/05/2024 13.5 - 18 [facility] Hct VFr Bld Auto 31.1 % Below low normal 10/05/2024 40 - 54 [facility] Glucose Bld-mCnc 186.0 mg/dL Normal 10/04/2024 70 - 199 [facility] Glucose Bld-mCnc 193.0 mg/dL Normal 10/04/2024 70 - 199 [facility] pCO2 Temp Control Arterial, POCT 41.2 mmHg Normal 10/07/2024 35 - 45 [facility] pH BldA 7.3 Below low normal 10/07/2024 7.35 - 7.45 [facility] HCO3 BldA-sCnc 20.1 mmol/L Below low normal 10/07/2024 22 - 26 [facility] Sample Site POCT ART Normal 10/07/2024 [facility] Patient Temperature POCT 98.4 C Normal 10/07/2024 [facility] Base excess BldA Calc-sCnc -6.0 mmol/L Below low normal 10/07/2024 0 - 2 [facility] pO2 BldA 106.0 mmHg Above high normal 10/07/2024 80 - 105 [facility] pO2 Temp Corrected Arterial, POCT 105.0 mmHg Critically high 10/07/2024 35 - 45 [facility] pH Temp Corrected Arterial, POCT 7.3 Below low normal 10/07/2024 7.35 - 7.45 [facility] pCO2 BldA 41.4 mmHg Normal 10/07/2024 35 - 45 [facility] Dee index Bld+IhG-Rto 40.0 % Normal 10/07/2024 - [facility] SaO2 % BldA 97.0 % Normal 10/07/2024 95 - 98 [facility] Glucose Bld-mCnc 206.0 mg/dL Above high normal 10/04/2024 70 - 199 [facility] Dee index Bld+IhG-Rto 40.0 % Normal 10/07/2024 - [facility] pH BldA 7.24 Below low normal 10/07/2024 7.35 - 7.45 [facility] pCO2 BldA 48.2 mmHg Above high normal 10/07/2024 35 - 45 C [facility] pO2 BldA 94.0 mmHg Normal 10/07/2024 80 - 105 [facility] HCO3 BldA-sCnc 20.5 mmol/L Below low normal 10/07/2024 22 - 26 [facility] Sample Site POCT ART Normal 10/07/2024 [facility] SaO2 % BldA 96.0 % Normal 10/07/2024 95 - 98 [facility] pO2 Temp Corrected Arterial, POCT 92.0 mmHg Critically high 10/07/2024 35 - 45 [facility] pH Temp Corrected Arterial, POCT 7.24 Below low normal 10/07/2024 7.35 - 7.45 [facility] Base excess BldA Calc-sCnc -7.0 mmol/L Below low normal 10/07/2024 0 - 2 [facility] pCO2 Temp Control Arterial, POCT 47.7 mmHg Above high normal 10/07/2024 35 - 45 [facility] Patient Temperature POCT 98.1 C Normal 10/07/2024 [facility] Glucose Bld-mCnc 207.0 mg/dL Above high normal 10/04/2024 70 - 199 [facility] HCO3 BldA-sCnc 18.5 mmol/L Below low normal 10/04/2024 22 - 26 [facility] pH BldA 7.22 pH Below low normal 10/04/2024 7.35 - 7.45 [facility] pO2 BldA 111.0 mmHg Above high normal 10/04/2024 80 - 105 [facility] Sedrick Test Pass Normal 10/04/2024 - [facility] pCO2 BldA 48.0 mmHg Above high normal 10/04/2024 35 - 45 [facility] Dee index Bld+IhG-Rto 40.0 Normal 10/04/2024 [facility] SaO2 % BldA 99.4 % Above high normal 10/04/2024 95 - 98 [facility] Base excess BldA Calc-sCnc -8.2 mmol/L Below low normal 10/04/2024 0 - 2 [facility] PMV Bld Auto 8.6 FL Normal 10/04/2024 7.4 - 11.4 [facility] MCV RBC Auto 93.7 FL Normal 10/04/2024 78 - 100 [facility] MCHC RBC Auto-mCnc 34.0 g/dL Normal 10/04/2024 32 - 36 [facility] MCH RBC Qn Auto 31.9 pcg Normal 10/04/2024 25 - 33 [facility] Platelet # Bld Auto 206.0 K/mcL Normal 10/04/2024 150 - 450 [facility] RBC # Bld Auto 3.65 M/mcL Below low normal 10/04/2024 4.7 - 6 [facility] Hgb Bld-mCnc 11.6 g/dL Below low normal 10/04/2024 13.5 - 18 [facility] Hct VFr Bld Auto 34.2 % Below low normal 10/04/2024 40 - 54 [facility] RDW RBC Auto-Rto 12.2 % Normal 10/04/2024 12.1 - 17.7 [facility] WBC # Bld Auto 16.3 K/mcL Above high normal 10/04/2024 4 - 1 0.5 [facility] Creat SerPl-mCnc 1.1 mg/dL Normal 10/04/2024 0.7 - 1.3 [facility] Calcium SerPl-mCnc 9.4 mg/dL Normal 10/04/2024 8.4 - 10.2 [facility] Glucose SerPl-mCnc 218.0 mg/dL Above high normal 10/04/2024 70 - 99 [facility] CO2 SerPl-sCnc 21.0 mmol/L Below low normal 10/04/2024 24 - 32 [facility] eGFRcr SerPlBld CKD-EPI 2020 79.0 mL/min/1.73m2 Normal 10/04/2024 - [facility] BUN SerPl-mCnc 15.0 mg/dL Normal 10/04/2024 9 - 20 [facility] Chloride SerPl-sCnc 104.0 mmol/L Normal 10/04/2024 98 - 107 [facility] Anion Gap SerPl-sCnc 14.0 Normal 10/04/2024 5 - 14 [facility] Sodium SerPl-sCnc 139.0 mmol/L Normal 10/04/2024 135 - 14 5 [facility] BUN/Creat SerPl 13.6 Normal 10/04/2024 12 - 20 [facility] Potassium SerPl-sCnc 4.2 mmol/L Normal 10/04/2024 3.5 - 5.1 [facility] Phosphate SerPl-mCnc 7.2 mg/dL Above high normal 10/04/2024 2.5 - 4.5 [facility] Potassium SerPl-sCnc 4.2 mmol/L Normal 10/04/2024 3.5 - 5.1 [facility] INR PPP 1.1 Normal 10/04/2024 0.8 - 1.1 [facility] PT Bld 13.4 sec Above high normal 10/04/2024 10.5 - 13.3 [facility] Ca-I Bld-mCnc 1.3 mg/dL Normal 10/04/2024 1.19 - 1.35 [facility] aPTT PPP 30.9 sec Normal 10/04/2024 25 - 37 [facility] pO2 BldMV 49.0 mmHg Normal 10/04/2024 [facility] Mucous Threads #/area UrnS HPF 17.1 mmol/L Normal 10/04/2024 [facility] Squamous #/area UrnS HPF -9.2 mmol/L Normal 10/04/2024 [facility] Cystine Cry #/area UrnS HPF 7.21 pH Below low normal 10/04/2024 7.35 - 7.45 [facility] Mixed Cell Casts #/area UrnS HPF 50.0 mmHg Normal 10/04/2024 [facility] pO2 Temp Corrected Arterial, POCT 282.0 mmHg Critically high 10/04/2024 35 - 45 [facility] Patient Temperature POCT 37.0 C Normal 10/04/2024 [facility] HCO3 BldA-sCnc 20.3 mmol/L Below low normal 10/04/2024 22 - 26 [facility] pO2 BldA 282.0 mmHg Above high normal 10/04/2024 80 - 105 [facility] SaO2 % BldA 100.0 % Above high normal 10/04/2024 95 - 98 [facility] Hgb BldA-mCnc 10.2 g/dL Below low normal 10/04/2024 13.5 - 1 8 [facility] pH Temp Corrected Arterial, POCT 7.26 Below low normal 10/04/2024 7.35 - 7.45 [facility] Dee index Bld+IhG-Rto 80.0 % Normal 10/04/2024 - [facility] Hct VFr BldA 30.0 % Below low normal 10/04/2024 40 - 54 [facility] Sodium BldA-sCnc 140.0 mmol/L Normal 10/04/2024 135 - 145 [facility] Glucose BldA-mCnc 184.0 mg/dL Normal 10/04/2024 70 - 199 [facility] Base excess BldA Calc-sCnc -7.0 mmol/L Below low normal 10/04/2024 0 - 2 [facility] pCO2 Temp Control Arterial, POCT 44.9 mmHg Normal 10/04/2024 35 - 45 [facility] Ca-I Bld-mCnc 1.12 mmol/L Below low normal 10/04/2024 1.19 - 1.35 [facility] Potassium BldA-sCnc 3.7 mmol/L Normal 10/04/2024 3.5 - 5.1 [facility] pCO2 BldA 44.9 mmHg Normal 10/04/2024 35 - 45 [facility] pH BldA 7.26 Below low normal 10/04/2024 7.35 - 7.45 [facility] Citrated Rapid TEG- Max Amplitude 51.5 mm Below low normal 10/04/2024 52 - 70 [facility] Clot angle Bld TEG 63.7 deg Normal 10/04/2024 63 - 78 [facility] Clot init Bld TEG 6.9 min Normal 10/04/2024 4.6 - 9.1 C [facility] Citrated Kaolin with Heparinase Reaction Time 6.3 min Normal 10/04/2024 4.3 - 8.3 [facility] CFT Bld TEG 2.3 min Above high normal 10/04/2024 0.8 - 2.1 [facility] MCF Bld TEG 275.5 mg/dL Below low normal 10/04/2024 278 - 58 1 [facility] PCO2 Temp Corrected Venous, POCT 47.4 mmHg Normal 10/04/2024 - [facility] Patient Temperature POCT 37.0 C Normal 10/04/2024 [facility] Sodium BldV-sCnc 139.0 mmol/L Normal 10/04/2024 135 - 145 [facility] Hgb BldV-mCnc 9.5 g/dL Below low normal 10/04/2024 13.5 - 1 8 [facility] pCO2 BldV 47.4 mmHg Normal 10/04/2024 - [facility] pH BldV 7.3 Below low normal 10/04/2024 7.35 - 7.45 [facility] Dee index Bld+IhG-Rto 85.0 % Normal 10/04/2024 - [facility] Hct VFr BldV 28.0 % Below low normal 10/04/2024 40 - 54 [facility] PO2 Temp Corrected Venous, POCT 39.0 mmHg Normal 10/04/2024 - [facility] Glucose BldV-mCnc 134.0 mg/dL Normal 10/04/2024 70 - 199 [facility] HCO3 BldV-sCnc 23.5 mmol/L Normal 10/04/2024 - [facility] pH Temp Corrected Venous, POCT 7.3 Below low normal 10/04/2024 7.35 - 7.45 [facility] Base excess BldV Calc-sCnc -3.0 mmol/L Normal 10/04/2024 - [facility] Ca-I Bld-mCnc 1.38 mmol/L Above high normal 10/04/2024 1.19 - 1.35 [facility] SaO2 % BldV 67.0 % Normal 10/04/2024 - [facility] Potassium BldV-sCnc 3.9 mmol/L Normal 10/04/2024 3.5 - 5.1 [facility] pO2 BldV 39.0 mmHg Normal 10/04/2024 - [facility] HCO3 BldA-sCnc 23.9 mmol/L Normal 10/04/2024 22 - 26 [facility] pO2 BldA 254.0 mmHg Above high normal 10/04/2024 80 - 105 [facility] Ca-I Bld-mCnc 1.31 mmol/L Normal 10/04/2024 1.19 - 1.35 [facility] pCO2 Temp Control Arterial, POCT 44.9 mmHg Normal 10/04/2024 35 - 45 [facility] pH Temp Corrected Arterial, POCT 7.33 Below low normal 10/04/2024 7.35 - 7.45 [facility] SaO2 % BldA 100.0 % Above high normal 10/04/2024 95 - 98 [facility] Patient Temperature POCT 37.0 C Normal 10/04/2024 [facility] Base excess BldA Calc-sCnc -2.0 mmol/L Below low normal 10/04/2024 0 - 2 [facility] Glucose BldA-mCnc 147.0 mg/dL Normal 10/04/2024 70 - 199 [facility] Dee index Bld+IhG-Rto 75.0 % Normal 10/04/2024 - [facility] Hgb BldA-mCnc 9.9 g/dL Below low normal 10/04/2024 13.5 - 1 8 [facility] pO2 Temp Corrected Arterial, POCT 254.0 mmHg Critically high 10/04/2024 35 - 45 [facility] pCO2 BldA 44.9 mmHg Normal 10/04/2024 35 - 45 [facility] Sodium BldA-sCnc 135.0 mmol/L Normal 10/04/2024 135 - 145 [facility] pH BldA 7.33 Below low normal 10/04/2024 7.35 - 7.45 [facility] Potassium BldA-sCnc 4.9 mmol/L Normal 10/04/2024 3.5 - 5.1 [facility] Hct VFr BldA 29.0 % Below low normal 10/04/2024 40 - 54 [facility] Potassium BldA-sCnc 5.3 mmol/L Above high normal 10/04/2024 3.5 - 5.1 [facility] pO2 BldA 257.0 mmHg Above high normal 10/04/2024 80 - 105 [facility] pO2 Temp Corrected Arterial, POCT 257.0 mmHg Critically high 10/04/2024 35 - 45 [facility] pCO2 Temp Control Arterial, POCT 44.2 mmHg Normal 10/04/2024 35 - 45 [facility] Patient Temperature POCT 37.0 C Normal 10/04/2024 [facility] pCO2 BldA 44.2 mmHg Normal 10/04/2024 35 - 45 [facility] pH Temp Corrected Arterial, POCT 7.34 Below low normal 10/04/2024 7.35 - 7.45 [facility] Glucose BldA-mCnc 155.0 mg/dL Normal 10/04/2024 70 - 199 [facility] Dee index Bld+IhG-Rto 75.0 % Normal 10/04/2024 - [facility] Ca-I Bld-mCnc 1.73 mmol/L Critically high 10/04/2024 1.19 - 1.35 [facility] HCO3 BldA-sCnc 23.6 mmol/L Normal 10/04/2024 22 - 26 [facility] Hct VFr BldA 31.0 % Below low normal 10/04/2024 40 - 54 [facility] Base excess BldA Calc-sCnc -2.0 mmol/L Below low normal 10/04/2024 0 - 2 [facility] pH BldA 7.34 Below low normal 10/04/2024 7.35 - 7.45 [facility] Hgb BldA-mCnc 10.5 g/dL Below low normal 10/04/2024 13.5 - 1 8 [facility] SaO2 % BldA 100.0 % Above high normal 10/04/2024 95 - 98 [facility] Sodium BldA-sCnc 135.0 mmol/L Normal 10/04/2024 135 - 145 [facility] Fibrinogen PPP-mCnc 234.0 mg/dL Normal 10/04/2024 145 - 415 [facility] Platelet # Bld Auto 203.0 K/mcL Normal 10/04/2024 150 - 450 [facility] PMV Bld Auto Normal 10/04/2024 [facility] Dee index Bld+IhG-Rto 75.0 % Normal 10/04/2024 - [facility] pO2 BldA 246.0 mmHg Above high normal 10/04/2024 80 - 105 [facility] Hgb BldA-mCnc 10.9 g/dL Below low normal 10/04/2024 13.5 - 1 8 [facility] pH Temp Corrected Arterial, POCT 7.31 Below low normal 10/04/2024 7.35 - 7.45 [facility] Patient Temperature POCT 37.0 C Normal 10/04/2024 [facility] Potassium BldA-sCnc 5.3 mmol/L Above high normal 10/04/2024 3.5 - 5.1 [facility] Base excess BldA Calc-sCnc -3.0 mmol/L Below low normal 10/04/2024 0 - 2 [facility] pH BldA 7.31 Below low normal 10/04/2024 7.35 - 7.45 [facility] Hct VFr BldA 32.0 % Below low normal 10/04/2024 40 - 54 [facility] Ca-I Bld-mCnc 1.13 mmol/L Below low normal 10/04/2024 1.19 - 1.35 [facility] Sodium BldA-sCnc 137.0 mmol/L Normal 10/04/2024 135 - 145 [facility] pO2 Temp Corrected Arterial, POCT 246.0 mmHg Critically high 10/04/2024 35 - 45 [facility] pCO2 Temp Control Arterial, POCT 47.2 mmHg Above high normal 10/04/2024 35 - 45 [facility] Glucose BldA-mCnc 169.0 mg/dL Normal 10/04/2024 70 - 199 [facility] pCO2 BldA 47.2 mmHg Above high normal 10/04/2024 35 - 45 C [facility] HCO3 BldA-sCnc 23.7 mmol/L Normal 10/04/2024 22 - 26 [facility] SaO2 % BldA 100.0 % Above high normal 10/04/2024 95 - 98 [facility] HCO3 BldA-sCnc 24.4 mmol/L Normal 10/04/2024 22 - 26 [facility] pO2 Temp Corrected Arterial, POCT 194.0 mmHg Critically high 10/04/2024 35 - 45 [facility] Glucose BldA-mCnc 185.0 mg/dL Normal 10/04/2024 70 - 199 [facility] Hgb BldA-mCnc 10.9 g/dL Below low normal 10/04/2024 13.5 - 1 8 [facility] pCO2 Temp Control Arterial, POCT 47.5 mmHg Above high normal 10/04/2024 35 - 45 [facility] Patient Temperature POCT 37.0 C Normal 10/04/2024 [facility] Potassium BldA-sCnc 5.2 mmol/L Above high normal 10/04/2024 3.5 - 5.1 [facility] pCO2 BldA 47.5 mmHg Above high normal 10/04/2024 35 - 45 [facility] Hct VFr BldA 32.0 % Below low normal 10/04/2024 40 - 54 [facility] SaO2 % BldA 100.0 % Above high normal 10/04/2024 95 - 98 [facility] pO2 BldA 194.0 mmHg Above high normal 10/04/2024 80 - 105 [facility] Dee index Bld+IhG-Rto 70.0 % Normal 10/04/2024 - [facility] pH BldA 7.32 Below low normal 10/04/2024 7.35 - 7.45 [facility] Base excess BldA Calc-sCnc -2.0 mmol/L Below low normal 10/04/2024 0 - 2 [facility] pH Temp Corrected Arterial, POCT 7.32 Below low normal 10/04/2024 7.35 - 7.45 [facility] Ca-I Bld-mCnc 1.15 mmol/L Below low normal 10/04/2024 1.19 - 1.35 [facility] Sodium BldA-sCnc 136.0 mmol/L Normal 10/04/2024 135 - 145 [facility] pH BldA 7.34 Below low normal 10/04/2024 7.35 - 7.45 [facility] Dee index Bld+IhG-Rto 70.0 % Normal 10/04/2024 - [facility] Hct VFr BldA 33.0 % Below low normal 10/04/2024 40 - 54 [facility] Patient Temperature POCT 37.0 C Normal 10/04/2024 [facility] Glucose BldA-mCnc 195.0 mg/dL Normal 10/04/2024 70 - 199 [facility] pCO2 BldA 46.6 mmHg Above high normal 10/04/2024 35 - 45 [facility] Ca-I Bld-mCnc 1.17 mmol/L Below low normal 10/04/2024 1.19 - 1.35 [facility] pCO2 Temp Control Arterial, POCT 46.6 mmHg Above high normal 10/04/2024 35 - 45 [facility] Hgb BldA-mCnc 11.2 g/dL Below low normal 10/04/2024 13.5 - 1 8 [facility] Potassium BldA-sCnc 5.1 mmol/L Normal 10/04/2024 3.5 - 5.1 [facility] pO2 Temp Corrected Arterial, POCT 215.0 mmHg Critically high 10/04/2024 35 - 45 [facility] Sodium BldA-sCnc 136.0 mmol/L Normal 10/04/2024 135 - 145 [facility] Base excess BldA Calc-sCnc -1.0 mmol/L Below low normal 10/04/2024 0 - 2 [facility] pO2 BldA 215.0 mmHg Above high normal 10/04/2024 80 - 105 [facility] HCO3 BldA-sCnc 24.8 mmol/L Normal 10/04/2024 22 - 26 [facility] SaO2 % BldA 100.0 % Above high normal 10/04/2024 95 - 98 [facility] pH Temp Corrected Arterial, POCT 7.34 Below low normal 10/04/2024 7.35 - 7.45 [facility] N Hct VFr BldA 32.0 % Below low normal 10/04/2024 40 - 54 [facility] Sodium BldA-sCnc 137.0 mmol/L Normal 10/04/2024 135 - 145 [facility] pH Temp Corrected Arterial, POCT 7.35 Normal 10/04/2024 7.35 - 7.45 [facility] pH BldA 7.35 Normal 10/04/2024 7.35 - 7.45 [facility] Ca-I Bld-mCnc 1.14 mmol/L Below low normal 10/04/2024 1.19 - 1.35 [facility] pO2 Temp Corrected Arterial, POCT 221.0 mmHg Critically high 10/04/2024 35 - 45 [facility] Hgb BldA-mCnc 10.9 g/dL Below low normal 10/04/2024 13.5 - 1 8 [facility] Glucose BldA-mCnc 163.0 mg/dL Normal 10/04/2024 70 - 199 [facility] Dee index Bld+IhG-Rto 70.0 % Normal 10/04/2024 - [facility] Base excess BldA Calc-sCnc -1.0 mmol/L Below low normal 10/04/2024 0 - 2 [facility] SaO2 % BldA 100.0 % Above high normal 10/04/2024 95 - 98 [facility] pCO2 Temp Control Arterial, POCT 44.9 mmHg Normal 10/04/2024 35 - 45 [facility] Potassium BldA-sCnc 5.0 mmol/L Normal 10/04/2024 3.5 - 5.1 [facility] pCO2 BldA 44.9 mmHg Normal 10/04/2024 35 - 45 [facility] N Patient Temperature POCT 37.0 C Normal 10/04/2024 [facility] pO2 BldA 221.0 mmHg Above high normal 10/04/2024 80 - 105 [facility] HCO3 BldA-sCnc 24.6 mmol/L Normal 10/04/2024 22 - 26 [facility] Citation Ref Lab Test The technical components of [place] [address] CLIA # [id number] Normal 10/05/2024 [facility] pH Temp Corrected Arterial, POCT 7.36 Normal 10/04/2024 7.35 - 7.45 [facility] Ca-I Bld-mCnc 1.08 mmol/L Below low normal 10/04/2024 1.19 - 1.35 [facility] Hgb BldA-mCnc 9.9 g/dL Below low normal 10/04/2024 13.5 - 1 8 [facility] pCO2 BldA 42.0 mmHg Normal 10/04/2024 35 - 45 [facility] SaO2 % BldA 100.0 % Above high normal 10/04/2024 95 - 98 [facility] pCO2 Temp Control Arterial, POCT 42.0 mmHg Normal 10/04/2024 35 - 45 [facility] Dee index Bld+IhG-Rto 70.0 % Normal 10/04/2024 - [facility] Sodium BldA-sCnc 137.0 mmol/L Normal 10/04/2024 135 - 145 [facility] Hct VFr BldA 29.0 % Below low normal 10/04/2024 40 - 54 [facility] Potassium BldA-sCnc 4.8 mmol/L Normal 10/04/2024 3.5 - 5.1 [facility] Glucose BldA-mCnc 131.0 mg/dL Normal 10/04/2024 70 - 199 [facility] pO2 Temp Corrected Arterial, POCT 225.0 mmHg Critically high 10/04/2024 35 - 45 [facility] pH BldA 7.36 Normal 10/04/2024 7.35 - 7.45 [facility] pO2 BldA 225.0 mmHg Above high normal 10/04/2024 80 - 105 [facility] HCO3 BldA-sCnc 23.9 mmol/L Normal 10/04/2024 22 - 26 [facility] Patient Temperature POCT 37.0 C Normal 10/04/2024 [facility] Base excess BldA Calc-sCnc -2.0 mmol/L Below low normal 10/04/2024 0 - 2 [facility] Base excess BldA Calc-sCnc -2.0 mmol/L Below low normal 10/04/2024 0 - 2 [facility] Patient Temperature POCT 37.0 C Normal 10/04/2024 [facility] HCO3 BldA-sCnc 23.6 mmol/L Normal 10/04/2024 22 - 26 [facility] Sodium BldA-sCnc 137.0 mmol/L Normal 10/04/2024 135 - 145 [facility] pH Temp Corrected Arterial, POCT 7.36 Normal 10/04/2024 7.35 - 7.45 [facility] pCO2 BldA 42.3 mmHg Normal 10/04/2024 35 - 45 [facility] Potassium BldA-sCnc 4.4 mmol/L Normal 10/04/2024 3.5 - 5.1 [facility] Ca-I Bld-mCnc 1.23 mmol/L Normal 10/04/2024 1.19 - 1.35 C [facility] Glucose BldA-mCnc 124.0 mg/dL Normal 10/04/2024 70 - 199 [facility] pCO2 Temp Control Arterial, POCT 42.3 mmHg Normal 10/04/2024 35 - 45 [facility] pH BldA 7.36 Normal 10/04/2024 7.35 - 7.45 [facility] SaO2 % BldA 100.0 % Above high normal 10/04/2024 95 - 98 [facility] Hct VFr BldA 36.0 % Below low normal 10/04/2024 40 - 54 [facility] pO2 Temp Corrected Arterial, POCT 284.0 mmHg Critically high 10/04/2024 35 - 45 [facility] Hgb BldA-mCnc 12.2 g/dL Below low normal 10/04/2024 13.5 - 1 8 [facility] Dee index Bld+IhG-Rto 80.0 % Normal 10/04/2024 - [facility] pO2 BldA 284.0 mmHg Above high normal 10/04/2024 80 - 105 [facility] Hgb BldA-mCnc 12.9 g/dL Below low normal 10/04/2024 13.5 - 1 8 [facility] pO2 Temp Corrected Arterial, POCT 333.0 mmHg Critically high 10/04/2024 35 - 45 [facility] Potassium BldA-sCnc 4.2 mmol/L Normal 10/04/2024 3.5 - 5.1 [facility] Sodium BldA-sCnc 139.0 mmol/L Normal 10/04/2024 135 - 145 [facility] pCO2 Temp Control Arterial, POCT 39.9 mmHg Normal 10/04/2024 35 - 45 [facility] HCO3 BldA-sCnc 23.0 mmol/L Normal 10/04/2024 22 - 26 [facility] pCO2 BldA 39.9 mmHg Normal 10/04/2024 35 - 45 [facility] SaO2 % BldA 100.0 % Above high normal 10/04/2024 95 - 98 [facility] Base excess BldA Calc-sCnc -2.0 mmol/L Below low normal 10/04/2024 0 - 2 [facility] Ca-I Bld-mCnc 1.26 mmol/L Normal 10/04/2024 1.19 - 1.35 C [facility] Dee index Bld+IhG-Rto 90.0 % Normal 10/04/2024 - [facility] Patient Temperature POCT 37.0 C Normal 10/04/2024 [facility] pH Temp Corrected Arterial, POCT 7.37 Normal 10/04/2024 7.35 - 7.45 [facility] pH BldA 7.37 Normal 10/04/2024 7.35 - 7.45 [facility] Glucose BldA-mCnc 120.0 mg/dL Normal 10/04/2024 70 - 199 [facility] Hct VFr BldA 38.0 % Below low normal 10/04/2024 40 - 54 [facility] pO2 BldA 333.0 mmHg Above high normal 10/04/2024 80 - 105 [facility] Glucose Bld-mCnc 113.0 mg/dL Normal 10/04/2024 70 - 199 [facility] ABO Group Bld O Normal 10/03/2024 [facility] Bld gp Ab Scn SerPl Ql Negative Normal 10/03/2024 [facility] Rh Bld Positive Normal 10/03/2024 [facility] aPTT PPP 31.2 sec Normal 10/03/2024 25 - 37 [facility] INR PPP 0.9 Normal 10/03/2024 0.8 - 1.1 [facility] PT Bld 11.2 sec Normal 10/03/2024 10.5 - 13.3 [facility] ABO Group Bld O Normal 09/23/2024 [facility] Bld gp Ab Scn SerPl Ql Negative Normal 09/23/2024 [facility] Rh Bld Positive Normal 09/23/2024 [facility] aPTT PPP 31.5 sec Normal 09/23/2024 25 - 37 [facility] INR PPP 0.9 Normal 09/23/2024 0.8 - 1.1 [facility] N PT Bld 10.8 sec Normal 09/23/2024 10.5 - 13.3 [facility] BNP SerPl-mCnc 15.0 pcg/mL Normal 09/23/2024 0 - 100 [facility] Cholest SerPl-mCnc 187.0 mg/dL Normal 09/23/2024 0 - 200 [facility] Trigl SerPl-mCnc 158.0 mg/dL Above high normal 09/23/2024 - 150 [facility] HDLc SerPl-mCnc 54.0 mg/dL Normal 09/23/2024 32 - 70 [facility] VLDLc SerPl Calc-mCnc 31.6 mg/dL Normal 09/23/2024 [facility] LDLc SerPl Calc-mCnc 101.0 mg/dL Normal 09/23/2024 50 - 130 [facility] Potassium SerPl-sCnc 4.7 mmol/L Normal 09/23/2024 3.5 - 5.1 [facility] BUN/Creat SerPl 18.0 Normal 09/23/2024 12 - 20 [facility] eGFRcr SerPlBld CKD-EPI 2020 89.0 mL/min/1.73m2 Normal 09/23/2024 - [facility] BUN SerPl-mCnc 18.0 mg/dL Normal 09/23/2024 9 - 20 [facility] Calcium SerPl-mCnc 9.9 mg/dL Normal 09/23/2024 8.4 - 10.2 [facility] Chloride SerPl-sCnc 101.0 mmol/L Normal 09/23/2024 98 - 107 [facility] Anion Gap SerPl-sCnc 8.0 Normal 09/23/2024 5 - 14 [facility] CO2 SerPl-sCnc 28.0 mmol/L Normal 09/23/2024 24 - 32 [facility] Sodium SerPl-sCnc 137.0 mmol/L Normal 09/23/2024 135 - 14 5 [facility] Creat SerPl-mCnc 1.0 mg/dL Normal 09/23/2024 0.7 - 1.3 [facility] Glucose SerPl-mCnc 115.0 mg/dL Normal 09/23/2024 70 - 199 [facility] Globulin Ser Calc-mCnc 2.2 g/dL Below low normal 09/23/2024 2.3 - 3.5 [facility] AST SerPl-cCnc 22.0 unit/L Normal 09/23/2024 5 - 40 [facility] Bilirub Direct SerPl-mCnc 0.1 mg/dL Normal 09/23/2024 0 - 0.2 [facility] Bilirub SerPl-mCnc 0.7 mg/dL Normal 09/23/2024 0.3 - 1 [facility] ALT SerPl-cCnc 32.0 unit/L Normal 09/23/2024 7 - 52 [facility] Prot SerPl-mCnc 7.0 g/dL Normal 09/23/2024 6.4 - 8.5 [facility] ALP SerPl-cCnc 79.0 unit/L Normal 09/23/2024 34 - 104 [facility] Albumin/Glob SerPl 2.2 Normal 09/23/2024 [facility] Albumin SerPl-mCnc 4.8 g/dL Normal 09/23/2024 3.5 - 5 [facility] HbA1c MFr Bld 5.3 % Normal 09/23/2024 - 5.7 [facility] Est. average glucose Bld gHb Est-mCnc 105.0 mg/dL Normal 09/23/2024 [facility] Prealb SerPl-mCnc 28.0 mg/dL Normal 09/23/2024 17 - 34 [facility] Sp Gr Ur 1.018 Normal 09/23/2024 1.005 - 1.03 [facility] Clarity Ur Clear Normal 09/23/2024 - [facility] WBC #/area UrnS HPF <1.0 /HPF Normal 09/23/2024 0 - 5 [facility] Color Ur Yellow Normal 09/23/2024 - [facility] RBC #/area UrnS HPF <1.0 /HPF Normal 09/23/2024 0 - 3 [facility] Prot Ur Strip-mCnc Negative Normal 09/23/2024 - [facility] Ketones Ur-mCnc Negative Normal 09/23/2024 - [facility] Mucous Threads #/area UrnS HPF Present Abnormal 09/23/2024 - [facility] pH Ur 5.0 pH Abnormal 09/23/2024 5 - 8 [facility] Squamous Epithelial, Urine 2.0 /HPF Normal 09/23/2024 0 - 5 [facility] Glucose Ur Ql Negative Normal 09/23/2024 - [facility] Nitrite Ur Ql Negative Normal 09/23/2024 - [facility] Leukocyte esterase Ur Ql Strip Negative Normal 09/23/2024 - [facility] Hgb Ur Ql Negative Normal 09/23/2024 - [facility] MCV RBC Auto 92.3 FL Normal 09/23/2024 78 - 100 [facility] Neutrophils # Bld Auto 3.5 K/mcL Normal 09/23/2024 1.8 - 7.8 [facility] Platelet # Bld Auto 236.0 K/mcL Normal 09/23/2024 150 - 450 [facility] WBC # Bld Auto 5.4 K/mcL Normal 09/23/2024 4 - 10.5 [facility] RBC # Bld Auto 4.7 M/mcL Normal 09/23/2024 4.7 - 6 [facility] Basophils # Bld Auto 0.0 K/mcL Normal 09/23/2024 0 - 0.2 [facility] Monocytes # Bld Auto 0.6 K/mcL Normal 09/23/2024 0 - 0.8 [facility] MCH RBC Qn Auto 32.1 pcg Normal 09/23/2024 25 - 33 [facility] PMV Bld Auto 8.4 FL Normal 09/23/2024 7.4 - 11.4 [facility] RDW RBC Auto-Rto 12.4 % Normal 09/23/2024 12.1 - 17.7 [facility] Neutrophils/leuk NFr Bld Auto 64.8 % Normal 09/23/2024 44 - 74 [facility] Hgb Bld-mCnc 15.1 g/dL Normal 09/23/2024 13.5 - 18 [facility] MCHC RBC Auto-mCnc 34.8 g/dL Normal 09/23/2024 32 - 36 [facility] Hct VFr Bld Auto 43.3 % Normal 09/23/2024 40 - 54 [facility] Lymphocytes # Bld Auto 1.2 K/mcL Normal 09/23/2024 1 - 3.2 [facility] Eosinophil # Bld Auto 0.1 K/mcL Normal 09/23/2024 0 - 0.5 [facility] Monocytes/leuk NFr Bld Auto 10.3 % Normal 09/23/2024 2 - 12 [facility] Lymphocytes/leuk NFr Bld Auto 22.5 % Normal 09/23/2024 20 - 48 [facility] Basophils/leuk NFr Bld Auto 0.5 % Normal 09/23/2024 0 - 2 [facility] Eosinophil/leuk NFr Bld Auto 1.9 % Normal 09/23/2024 0 - 6 [facility] History of Medication Use Medication Directions Dispensed Refills Start Date End Date Stat metoprolol succinate (TOPROL-XL) 25 mg 24 hr tablet Take 75 MG ( 25 MG & 50 MG tab total) every morning & 50 MG tablet every evening by mouth . 11/23/2024 active apixaban (Eliquis) 5 mg tablet Take 1 tablet (5 mg total) by mouth 2 (two) times a day. 10/26/2024 active metoprolol succinate (TOPROL-XL) 25 mg 24 hr tablet Take 1 tablet (25 mg total) by mouth 1 (one) time each day. Do not crush or chew. 10/26/2024 active omeprazole (PriLOSEC) [address] capsule Take 1 capsule (40 mg total) by mouth 1 (one) time each day before breakfast. 10/11/2024 active ketorolac (TORADOL) injection 15 mg 15 mg, intravenous, Every 6 hours PRN, severe pain, moderate pain, Starting on Fri10/08/24 at 0754, For 1 day 10/08/2024 10/10/19 completed metoclopramide (REGLAN) injection 10 mg 10 mg, intravenous, Every 6 hours scheduled, First dose on Fri10/08/24 at 1830, Doses LESS than or equal to 10 mg can be given IV push undiluted over 1 minute 10/08/2024 10/10/19 aborted calcium gluconate 1 gram/50 mL IVPB (premix) 1 g 1 g, intravenous, at 50 mL/hr, Administer over 60 Minutes, Once, On Fri10/08/24 at 0545, For 1 dose 10/08/2024 10/08/19 completed ipratropium-albutero L (DUONEB) 0.5-2.5 mg/3 mL nebulizer solution 3 mL 3 mL, nebulization, Once, On Fri10/08/24 at 1615, For 1 dose 10/08/2024 10/08/19 completed bisacodyL (DULCOLAX) suppository 10 mg 10 mg, rectal, Daily PRN, constipation, Starting on Fri10/08/24 at 0756 10/08/2024 active magnesium hydroxide (MILK OF MAGNESIA) 400 mg/5 mL suspension 30 mL 30 mL, oral, Nightly PRN, constipation, Starting on Fri10/08/24 at 0756, Follow dose with 8 oz of water. 10/08/2024 active polyethylene glycol (MIRALAX) 17 gram packet Mix 1 packet (17 g) with 8oz of fluid (water, juice, coffee) and drink at bedtime for 3 days. 10/08/2024 active potassium chloride (KLOR-CON M20) CR tablet 40 mEq 40 mEq, oral, Once, On Fri10/10/24 at 0630, For 1 dose, Tablet may be swallowed whole (do not crush/chew/suck on) OR broken in half and each half swallowed separately OR dissolved (whole tablet) in ~4 ounces of water (allow ~2 minutes to dissolve, stir well and administer immediately). 10/07/2024 10/11/19 completed senna (SENOKOT) tablet 8.6 mg 8.6 mg (1 tablet), oral, 2 times daily, First dose on Fri10/08/24 at 0900 10/07/2024 10/11/19 aborted furosemide (LASIX) injection 20 mg 20 mg, intravenous, Once, On Fri10/06/24 at 2045, For 1 dose 10/07/2024 10/10/19 completed cyclobenzaprine (FLEXERIL) tablet 5 mg 5 mg, oral, 3 times daily PRN, muscle spasms, Starting on Alejandra 10/07/24 at 1008 10/07/2024 10/08/19 aborted docusate sodium (Colace) 100 mg capsule Take 1 capsule (100 mg total) by mouth 1 (one) time each day if needed for constipation for up to 7 days. 10/07/2024 10/08/19 active oxyCODONE (ROXICODONE) immediate release tablet 10 mg 10 mg, oral, Every 4 hours PRN, severe pain, Starting on Fri10/06/24 at 1115 10/06/2024 10/08/19 aborted HYDROmorphone (DILAUDID) injection 0.25 mg 0.25 mg, intravenous, Once, On Fri10/06/24 at 1600, For 1 dose 10/06/2024 10/06/19 completed atorvastatin (LIPITOR) tablet 80 mg 80 mg, oral, Nightly, First dose on Fri10/05/24 at 2100 10/06/2024 active pantoprazole (PROTONIX) EC tablet 40 mg 40 mg, oral, Every morning before breakfast, First dose on Fri10/06/24 at 0700, Do not crush, chew, or split. 10/06/2024 active amiodarone (PACERONE) 200 mg tablet Take 1 tablet (200 mg total) by mouth 1 (one) time each day. 10/05/2024 10/08/19 active ceFAZolin (ANCEF) 2 g in sterile water 20 mL IV syringe 2 g, intravenous, Administer over 3 Minutes, Every 8 hours, First dose on Fri10/04/24 at 1930, For 5 doses, Indication: Prophylaxis-Surgica l 10/05/2024 10/06/19 completed albumin human 5 % infusion 25 g 25 g, intravenous, Once, On Fri10/04/24 at 2330, For 1 dose, Do not exceed 4 mL/minute in patients with normal plasma volume; 10 mL/minute in patients with hypoproteinemia., Indications: hypovolemic shock 10/05/2024 10/05/19 completed calcium gluconate 2 gram/100 mL IVPB (premix) 2 g 2 g, intravenous, at 100 mL/hr, Administer over 60 Minutes, Once, On Fri10/05/24 at 0545, For 1 dose 10/05/2024 10/05/19 completed aspirin 81 mg EC tablet Take 1 tablet (81 mg total) by mouth 1 (one) time each day. 10/05/2024 active acetaminophen (TYLENOL) 325 mg tablet Take 2 tablets (650 mg total) by mouth every 6 (six) hours if needed for mild pain, fever - temperature GREATER than 38 C (100.4 F), moderate pain or headaches for up to 10 days. 10/04/2024 10/08/19 active mupirocin (BACTROBAN) 2 % ointment 1 Application 1 Application, Each Nostril, 2 times daily, First dose on Fri10/04/24 at 2100, For 10 doses, Total of 10 doses, including any pre-operative doses received. Request from pharmacy if additional product needed. 10/04/2024 10/08/19 aborted HYDROmorphone (DILAUDID) injection 0.5 mg 0.5 mg, intravenous, Every 2 hours PRN, severe pain, Starting on Fri10/06/24 at 1537 10/04/2024 10/07/19 aborted insulin regular in NS 100 unit/100 mL (1 unit/mL) IV 0.5-20 Units/hr (0.5-20 mL/hr), intravenous, Continuous, Starting on Fri10/04/24 at 1545, GOAL EFFECT: BG range 120-170 mg/dL (Cardiac Surgery) Titrate per insulin infusion calculator If enteral / parenteral nutrition is stopped abruptly, REDUCE the insulin infusion rate by 50%. 1. Check BG hourly 10/04/2024 10/06/19 aborted sodium chloride 0.9 % infusion 100 mL/hr, intravenous, Continuous, Starting on Fri10/04/24 at 1600 10/04/2024 10/06/19 aborted amiodarone (CORDARONE) 360 mg in dextrose (non-PVC) 5 % 200 mL (1.8 mg/mL) infusion 1 mg/min (33.3333 mL/hr, rounded to 33.3 mL/hr), intravenous, Continuous, Starting on Fri10/04/24 at 1245, Intraprocedure 10/04/2024 10/05/19 aborted aspirin suppository 300 mg 300 mg, rectal, Daily, First dose on Fri10/04/24 at 1545 10/04/2024 10/05/19 aborted chlorhexidine (PERIDEX) 0.12 % solution 15 mL 15 mL, Mouth/Throat, 2 times daily, First dose on Fri10/04/24 at 1600 10/04/2024 10/05/19 aborted niCARdipine (CARDENE) 25 mg in sodium chloride 0.9 % 250 mL (0.1 mg/mL) infusion 2.5-15 mg/hr (25-150 mL/hr), intravenous, Continuous, Starting on Fri10/04/24 at 1800, GOAL EFFECT: SBP LESS than 110 mmHg INITIAL RATE: 5 mg/hr TITRATION DOSE: 2.5 mg/hr TITRATION FREQUENCY: 5 min CONTACT PRESCRIBER: -SBP LESS than 90 mmHg -SBP GREATER than 180 mmHg * Individual case 10/04/2024 10/05/19 aborted pantoprazole (PROTONIX) injection 40 mg 40 mg, intravenous, Administer over 2 Minutes, Every 24 hours, First dose on Fri10/04/24 at 1545, Patient MUST have BOTH: -Strict NPO (unable to take oral or liquid PPI) -Contraindication to H2RA Pantroprazole - IV push: Reconstitute powder for injection with 10 mL NS; final concentration: 4 mg/mL., 10/04/2024 10/05/19 aborted magnesium sulfate 2 gram/50 mL (4 %) IVPB 2 g 2 g, intravenous, at 25 mL/hr, Administer over 2 Hours, Once, On Fri10/04/24 at 1545, For 1 dose 10/04/2024 10/04/19 completed propofoL (DIPRIVAN) infusion 10 mg/mL intravenous, Continuous PRN, Starting on Fri10/04/24 at 1257, Anesthesia Intraprocedure 10/04/2024 10/04/19 aborted sodium bicarbonate injection 100 mEq 100 mEq, intravenous, Once, On Fri10/04/24 at 1630, For 1 dose 10/04/2024 10/04/19 completed sodium chloride 0.9 % bolus 500 mL 500 mL, intravenous, at 500 mL/hr, Administer over 1 Hours, Once, On Fri10/04/24 at 1600, For 1 dose 10/04/2024 10/04/19 completed ondansetron (PF) (ZOFRAN) injection 4 mg 4 mg, intravenous, Every 6 hours PRN, nausea, vomiting, Starting on Fri10/04/24 at 1516 10/04/2024 active acetaminophen (TYLENOL) tablet 1,000 mg 1,000 mg, oral, Every 6 hours scheduled, First dose on Fri09/10/24 at 1200, Recovery & On Unit 09/10/2024 active ondansetron ODT (ZOFRAN-ODT) disintegrating tablet 4 mg [Order 1 Start] Name: ondansetron ODT (ZOFRAN-ODT) disintegrating tablet 4 mg Signed Summary: 4 mg, oral, Every 8 hours PRN, vomiting, nausea, Starting on Fri09/10/24 at 1032, Recovery & On Unit, -Give IV if patient is unable to take orally. -If inadequate response within 30 minutes, proceed to next 09/10/2024 active oxyCODONE (ROXICODONE) immediate release tablet 5 mg 5 mg, oral, Every 4 hours PRN, Breakthrough pain, Starting on Fri09/10/24 at 1032, Recovery & On Unit 09/10/2024 active iopamidoL (ISOVUE-370) 370 mg iodine /mL (76 %) injection 100 mL 100 mL, intravenous, Once in imaging, Starting on Fri09/01/24 at 1525, For 1 dose 09/01/2024 09/01/19 completed sodium chloride 0.9 % flush 10 mL 10 mL, intravenous, Once, On Fri09/01/24 at 1545, For 1 dose 09/01/2024 09/01/19 completed sodium chloride 0.9 % intravenous solution 50 mL 50 mL, intravenous, Once in imaging, Starting on Fri09/01/24 at 1525, For 1 dose 09/01/2024 09/01/19 completed omeprazole (PriLOSEC) 20 MG capsule Take 1 capsule (20 mg total) by mouth daily. 03/22/2024 active acetaminophen (TYLENOL) 325 mg tablet Take 1 tablet (325 mg total) by mouth every 6 (six) hours if needed for mild pain. active calcium carbonate-vitamin D 500 mg-5 mcg (200 unit) per tablet Take 1 tablet by mouth 1 (one) time each day. active docusate sodium (COLACE) 50 mg capsule Take 1 capsule (50 mg total) by mouth 2 (two) times a day. active losartan (COZAAR) 25 mg tablet Take 1 tablet (25 mg total) by mouth 1 (one) time each day. active Problems Problem Status Onset Date Problem Type Date of Resolution Source Aneurysm of ascending aorta without rupture (HCC) active EncounterDiagnosisAct [facility]NE MG Mixed hyperlipidemia active EncounterDiagnosisA ct [facility]THNEMG HLD (hyperlipidemia) active ProblemAct [facility] Ascending aortic aneurysm ([facility] V24) active 2024-10-03 ProblemAct [facility] History of aortic root repair active 2024-10-04 ProblemAct [facility] GERD (gastroesophageal reflux disease) active ProblemAct [facility] Paroxysmal atrial fibrillation ([facility] V24, [facility] V28) active 2024-10-04 Problem[address] [facility] Hypertension active 2024-09-[address] [facility] Thoracic aortic aneurysm ([facility] V24) active ProblemAct [facility] Encounters Encounter Type Encounter Reason Primary Diagnosis Location Date Ambulatory 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 [facility] 2024 Ambulatory [facility] 11/08/2024 Ambulatory Other specified postprocedural states Other specified postprocedural states [facility] 11/08/2024 Ambulatory Other specified postprocedural states Other specified postprocedural states [facility] 11/08/2024 Ambulatory [facility] 11/05/2024 Ambulatory 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 [facility] 10/26/2024 Inpatient Aneurysm of the ascending aorta, without rupture Aneurysm of the ascending aorta, without rupture [facility] 10/03/2024 Ambulatory Encounter for preprocedural cardiovascular examination Encounter for preprocedural cardiovascular examination [facility] 09/23/2024 Ambulatory Encounter for other preprocedural examination Encounter for other preprocedural examination [facility] 09/23/2024 Ambulatory 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 [facility] 09/10/2024 Ambulatory Thoracic aortic ectasia Thoracic aortic ectasia [facility] 09/01/2024 Ambulatory Mixed hyperlipidemia Mixed hyperlipidemia [facility] 08/12/2024 Ambulatory Mixed hyperlipidemia Mixed hyperlipidemia [facility] 08/10/2024 Ambulatory Mixed hyperlipidemia Mixed hyperlipidemia [facility] 05/25/2024 Ambulatory Mixed hyperlipidemia Mixed hyperlipidemia [facility] 05/25/[place]24 Care Team Organization Name Specialty Phone Email Start Date End Da te [facility] Diane Polanco Primary Care 06/19/2024 [facility] Diane Polanco Primary Care 06/17/2024 [facility]/2024 [facility] 05/1102/22/2025
--- OUTSIDE RECORDS SUMMARY | 2025-05-10 06:33 | XMS_ITS | Clinical Summary ---
Author Organization [facility] Address [address] [place] [id number] Care Team Providers Care Reinforcing Steel Worker Name Role Phone Diane Polanco MD Primary Care Provider [phone] Allergies No known active allergies Medications Medication [...] (1 of 2) 2018 Influenza Vaccine (#1) 2025 Pneumococcal Vaccine Aged Out No long er eligible based on patient's age to complete this topic RSV Ped < 20 months Aged Out No longe r eligible based on patient's age to complete this topic Care Teams Reinforcing Steel Worker Relationship Specialty Start Date End Date Diane Polanco MD [address] [place] [address] 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
[2025-05-10 10:33] LABS: Appearance Urine Clear; Glucose Urine UA Negative (Negative); PH 5.5 (5.0-9.0); Specific Gravity - Urine 1.020 (1.005-1.025)
[2025-05-10 10:42] LABS: MANUAL DIFF FLAG NO
[2025-05-10 10:48] LABS: Hematocrit 39.7 % (42.0-52.0); Hemoglobin 13.7 g/dl (14.0-18.0); Imm Gran Abs Auto 0.01 X10*3/uL (0.00-0.03); Imm Gran Pct Auto 0.2 % (0.0-0.4); Lymphocytes Absolute Auto 1.0 X10*3/uL (1.2-4.9); Mean Corpuscular HGB Conc 34.5 g/dl (31.0-36.0); Mean Corpuscular Hemoglobin 31.9 pg (27.0-33.0); Mean Corpuscular Volume 92.3 fL (80.0-98.0); NRBC Abs Auto 0.000 X10*3/uL (0.0-0.012); NRBC Pct Auto 0.0 /100WBC (0.0-0.2); Platelet Count 223 X10*3/uL (160-400); Red Blood Count 4.30 X10*6/uL (4.60-5.80); White Blood Count 4.6 X10*3/uL (4.8-10.8)
[2025-05-10 11:30] LABS: Alanine Aminotransferase 16 U/L (0-40); Albumin Level 4.4 g/dL (3.5-5.0); Alkaline Phosphatase 72 U/L (39-117); Anion Gap 11 (12-20); Aspartate Amino Transferase 21 U/L (5-37); Blood Urea Nitrogen 14 mg/dL (9-16); Calcium 9.4 mg/dL (8.4-10.2); Carbon Dioxide 24 mmol/L (22-29); Chloride 110 mmol/L (96-108); Cholesterol 150 mg/dL (<200); Estimated Glomerular Filt Rate > 60; HDL Cholesterol 51 mg/dL (>40); Potassium 5.0 mmol/L (3.3-5.1); Sodium 140 mmol/L (135-145); Total Protein 6.7 g/dL (6.5-8.0); Triglycerides 94 mg/dL (<150)
[2025-05-10 11:38] LABS: PSA,Total (Free>4and<10) 2.85 ng/mL (0.00-4.00)
== END 2025-05-10 06:31 | disposition home or self-care (01) ==
LOC: HO.HMGCLDS 06:30
PROVIDERS: PCP Internal Medicine; Visit Provider Internal Medicine
DX: Z00.00 Encounter for general adult medical examination without abnormal findings (principal); G47.30 Sleep apnea, unspecified; E78.2 Mixed hyperlipidemia; Z12.5 Encounter for screening for malignant neoplasm of prostate; Z82.49 Family history of ischemic heart disease and other diseases of the circulatory system
CPT/HCPCS: 36415; 80053; 80061; 81001; 84153; 85025

== ENCOUNTER 2025-05-12 12:41 | Outpatient (AMB) | payer BC, SELFPAY ==
--- OUTSIDE RECORDS SUMMARY | 2024-05-20 09:04 | XMS_ITS | Encounter Summary ---
Author Organization [facility] Address [address] [place] [address] Care Team Providers Care Spring Setter Name Role Phone Diane Polanco MD Primary Care Provider [phone] Encounter Details Date Type Department Care Team [...] Aneurysm of the ascending aorta, without rupture ([facility]/HCC V24) documented in this encounter Results * Transthoracic Echocardiogram (Tte) Complete (Contrast/Bubble/3D/Myocardial Strain Prn) (05/20/2024 9:32 AM EDT) Anatomical Region Laterality Modality Other 05/20/2024 Narrative 05/20/2024 9:32 AM EDT Report completed outside of [facility]. Refer to scanned document and/or notes for final report. Not Vldtd Procedure Note Historical, Cardiovascular Results, MD - 06/08/2024 Report completed outside of [facility]. Refer to scanned document and/or notesfor final report. Not Vldtd us Victoriano Hanley MD CV HISTORICAL CONV PROCEDURES Final Result documented in this encounter Visit Diagnoses Diagnosis Mixed hyperlipidemia Aneurysm of the ascending aorta, without rupture (CMS/HCC V24) documented in this encounter Care Teams Spring Setter Relationship Specialty Start Date End Date Diane Polanco MD [address] [place] [address] PCP - General 04/07/24 documented as of this encounter
[2025-05-12 12:49] VITALS: BP 120/76; PULSE 79; RESP 18; TEMP 36.6; O2SAT 97; BMI 28.7
--- NOTE | 2025-05-12 12:49 | A.OFFPC_ITS ---
Vital Signs 05/12/25 12:49 Height 6 ft 3 in Weight 230 lb BMI 28.7 BP 120/76 Blood Pressure Location Rt brachial Position Sitting Respiration 18 Pulse 79 Pulse Source Pulse Oximeter Temp 97.9 F Temp Source Oral Pulse Oximetry (%) 97 Oxygen Delivery Method Room Air Intake Visit Reasons: PE Intake Note: Pt is here today for PE. Allergies No Known Allergies Allergy (Verified 05/12/25 12:51) Medication List - Last Reconciled 05/12/25 by Diane Polanco MD omeprazole 20 mg PO DAILY rosuvastatin 20 mg PO DAILY Tobacco use date assessed: 05/12/25 Dental Screening Dental Screen Date: 05/12/25 Did you have a dental visit in the last 12 months?: Yes Did you have a dental problem in the last 6 months where you did not have access to dental care?: No Was dental information given to patient?: Patient has dentist HPI PE HPI Details Pt presents for PE. [facility] Medical History (Updated 05/12/25 @ 15:04 by Diane Polanco MD) Mixed hyperlipidemia FHx: aortic aneurysm Ascending aorta dilation Annual physical exam Surgical History (Updated 05/12/25 @ 15:04 by Diane Polanco MD) S/P ascending aortic replacement History of open heart surgery H/O esophagogastroduodenoscopy H/O colonoscopy Family History Father No problems noted. Mother No problems noted. Social History Household Members Other:: , 2 daughters in [place] school Housing: House Patient Tobacco Use Status: Never used Tobacco e-Cigarette/Vaping Use: Never Used service: No Current occupational status: employed Cognitive needs: No Hearing needs: No Vision needs: No Questionnaire PHQ-9 Over the last 2 weeks, how often have you been bothered by any of the following problems? 1. Little interest or pleasure in doing things: not at all 2. Feeling down, depressed, or hopeless: not at all 3. Trouble falling or staying asleep, or sleeping too much: not at all 4. Feeling tired or having little energy: not at all 5. Poor appetite or overeating: not at all 6. Feeling bad about yourself - or that you are a failure or have let yourself or your family down: not at all 7. Trouble concentrating on things, such as reading the newspaper or watching television: not at all 8. Moving or speaking so slowly that other people could have noticed. Or the opposite - being so fidgety or restless that you have been moving around a lot more than usual: not at all 9. Thoughts that you would be better off or of hurting yourself in some way: not at all Total score: 0 Depression Screening Interpretation: Negative Depression Screening Done: Yes 93215 - PHQ-9 Billing: Yes Source: Developed by Drs. Ervin Sprague, Tiffany Siegel, Yuriy Burton and colleagues, with an educational oliverio from [employer]. Thrive Questionnaire Date Thrive assessed: 05/12/25 I am a: Patient What is your living situation today?: I have a steady place to live Within the past 12 months, did the food you bought not last and you didn't have the money to get more?: Never true Within the past 12 months, did you worry whether your food would run out before you got money to buy more?: Never true Do you have trouble paying for medicines?: No Do you have trouble getting transportation to medical appointments?: No Do you have trouble paying your heating and electricity bill?: No Do you have trouble taking care of your child, family member or friend?: No Do you have trouble with day-to-day activities such as bathing, preparing meals, shopping, managing finances, etc.?: No Are you currently unemployed and looking for a job?: No Are you interested in more education?: No Please select the resources that you would like help with: None Currently or been in a relationship where the following occur: No concerns reported THRIVE Score: 0 AUDIT C Alcohol Use Questionnaire (AUDIT-C) 1. How often do you have a drink containing alcohol?: 2-3 times a week 2. How many drinks containing alcohol do you have on a typical day when you are drinking?: 3 or 4 3. How often do you have six or more drinks on one occasion?: Less than monthly Total Score: 5 RACIEL-7 AMB Questionnaire RACIEL-7 Date RACIEL - 7 assessed: 05/12/25 Feeling nervous, anxious, or on edge: 0 = Not at all Not being able to stop or control worryin = Several days Worrying too much about different things: 0 = Not at all Trouble relaxin = Several days Being so restless that it is hard to sit still: 0 = Not at all Becoming easily annoyed or irritable: 0 = Not at all Feeling afraid as if something awful might happen: 0 = Not at all Total RACIEL-7 score (0-4 normal; 5-9 mild; 10-14 moderate; 15-21 severe): 2 Source: Developed by Drs. Ervin Sprague, Tiffany Siegel, Yuriy Burton and colleagues, with an educational oliverio from [employer]. RACIEL-7 Assessment Billing RACIEL-7 Assessment Tool: RACIEL-7 Assessment 23452 Review of Systems Const All systems reviewed & are unremarkable except as noted in HPI and below Reports no additional complaints Eyes Reports no additional complaints ENT Reports no additional complaints Card Reports no additional complaints Resp Reports no additional complaints GI Reports no additional complaints Reports no additional complaints Musc Reports no additional complaints Physical exam (Primary Care) Vital Signs: Last Vital Signs Temp 97.9 F 05/12/25 12:49 Pulse 79 05/12/25 12:49 Resp 18 05/12/25 12:49 BP 120/76 05/12/25 12:49 Pulse Ox 97 05/12/25 12:49 Oxygen Delivery Method Room Air 05/12/25 12:49 BMI result Body Mass Index 28.7 Tobacco/Smoking Status: Tobacco use Status Tobacco use date assessed 05/12/25 05/12/25 12:55 Patient Tobacco Use Status Never used Tobacco 05/12/25 12:55 e-Cigarette/Vaping Use Never Used 05/12/25 12:55 PHQ-9: PHQ-9 Score PHQ-9: Total score 0 05/12/25 13:23 Depression Screening Interpretation: Negative Thrive Assessment: Date of Thrive Assessment Date Thrive assessed 05/12/25 05/12/25 12:55 Currently or been in a relationship where the following occur: No concerns reported Const General: no acute distress HENMT Head: Yes normal to inspection Ears: hearing grossly normal bilaterally Throat: Yes posterior oropharynx normal Eyes General: appearance normal, both eyes and all related structures Neck Neck: Yes no lymphadenopathy and Yes supple Resp Effort & Inspection: normal respiratory effort Auscultation: clear to auscultation bilaterally Cardio Rhythm: regular rhythm Heart sounds: S1 normal heart sound present and S2 normal heart sound present GI Inspection: Yes normal to inspection Palpation (GI): Soft to palpation Percussion: Yes normal to percussion Auscultation: normal bowel sounds Coding Level of Care Code Est Pt Prev Care 40-64y(86111) Diagnoses Ascending aorta dilation I77.810 Mixed hyperlipidemia E78.2 Annual physical exam Z00. Additional Codes RACIEL-7 Assessment Billing - RACIEL-7 Assessment Tool: RACIEL-7 Assessment 26380 ([id number]) PHQ-9 - 21783 - PHQ-9 Billing: Yes ([id number]) Assessment & Plan Assessment & Plan (1) Ascending aorta dilation: Comment: 4.4 cm , 06/2022, unchanged 10/2022 f/u with [facility] cardiac surgeon, s/p ascending aorta replacement 09/2024, at [place] , A flutter post op, s/p cardioversion, f/u [facility] cardiology Code(s): I77.810 - Thoracic aortic ectasia Category: Medical Plan: Follow-up with cardiology in [facility] (2) Mixed hyperlipidemia: Code(s): E78.2 - Mixed hyperlipidemia Category: Medical Plan: Continue rosuvastatin (3) Annual physical exam: Code(s): Z00.00 - Encounter for general adult medical examination without abnormal findings Category: Medical Plan: WELL-BALANCED DIET REGULAR PHYSICAL ACTIVITY DISCUSSED WITH THE PATIENT Orders: Orders Comprehensive [place]. Panel Fast 1 Year E78.2 - Mixed hyperlipidemia, Z00.00 - Encounter for general adult medical examination without abnormal findings Lipid Panel 1 Year E78.2 - Mixed hyperlipidemia, Z00.00 - Encounter for general adult medical examination without abnormal findings UA w Microscopic 1 Year E78.2 - Mixed hyperlipidemia, Z00.00 - Encounter for general adult medical examination without abnormal findings Vitamin B12 and Folate 1 Year E78.2 - Mixed hyperlipidemia, Z00.00 - Encounter for general adult medical examination without abnormal findings Complete Blood Count Auto Diff 1 Year E78.2 - Mixed hyperlipidemia, Z00.00 - Encounter for general adult medical examination without abnormal findings PSA,Total (Free>4and<10) 1 Year E78.2 - Mixed hyperlipidemia, Z00.00 - Encounter for general adult medical examination without abnormal findings Vitamin B1 1 Year E78.2 - Mixed hyperlipidemia, Z00.00 - Encounter for general adult medical examination without abnormal findings Vitamin D 25-OH Total 1 Year E78.2 - Mixed hyperlipidemia, Z00.00 - Encounter for general adult medical examination without abnormal findings
--- OUTSIDE RECORDS SUMMARY | 2025-05-12 14:05 | XMS_ITS | Clinical Summary ---
Author Organization [facility] Address [address] [place] [address] Phone Care Team Providers Care V Belt Finisher Name Role Phone Diane Polanco MD Primary Care Provider [phone] Allergies No known active allergies Medications rosuvastatin [...] Diagnosed Date Paroxysmal atrial fibrillation (CMS/HCC V24, [facility] V28) 10/04/2024 History of aortic root repair 10/04/2024 Ascending aortic aneurysm [place] [place]24) 10/03/19 25 Aneurysm of ascending aorta without rupture ([facility] V24) 10/03/2024 Hypertension 09/03/2024 GERD (gastroesophageal reflux disease) HLD (hyperlipidemia) Overview (09/23/2024): DX:HLD (hyperlipidemia) Thoracic aortic aneurysm ([facility] [place]24) Overview (09/23/2024): DX:Thoracic aortic aneurysm (HCC) Surgical History Surgery Date Site/Laterality Comments CYST REMOVAL Right foot & back VASECTOMY Medical History Medical History Date Comments Thoracic aortic aneurysm ([facility] [place]24) DX:Thoracic aortic aneurysm (HCC) HLD (hyperlipidemia) [...] this topic Medical Devices Implanted Type Area Monument Setter Helper Device Identifier Shelf Expiration Date Model / Serial / Lot Surgiflo Hemostatic Matrix - Sna - [id number] Implanted:Qt y: 2 on 10/04/2024 by Kit Gonzalez MD at [facility] Hemostasis N/A: Chest [employer] 06/17/2026 [id number] / [id number] / [id number] Cable Strnl 3 Blnt 1 Cut 4pk - Sna - [id number] Implanted:Qt y: 1 on 10/04/2024 by Kit Gonzalez MD at [facility] Internal and External Fixation N/A: Sternum BIOMET MICROFIXN- A AND E MED ITEMS 05/27/2029 [id number] / [id number] / [id number] System Perclose Prostyle Suture Medicated - [id number] - [id number] Implanted:Qt y: 1 on 09/10/2024 by Kit Houser DO at [facility] Vascular Closure Devices Right: Wrist [facility] [id number] 07/10/2026 [id number] / [id number] / [id number] Graft Vasc Valsalva [id number] Gelweave - [id number] - [id number] Implanted:Qt y: 1 on 10/04/2024 by Kit Gonzalez MD at [facility] Vascular Grafts N/A: Heart [employer] 02/07/2027 [id number] / [id number] / [id number] Procedures Procedure Name Priority Date/Time Associated Diagnosis Comments COMPREHENSIVE METABOLIC PANEL Timed 10/08/2024 3:38 AM EST LIPID PANEL WITH REFLEX TO DIRECT LDL Routine 09/23/2024 8:15 AM EST Pre-op testing from Last 3 Months or Most Recently Relevant to Health Maintenance Results * (ABNORMAL) Comprehensive metabolic panel (10/08/2024 3:38 AM EST) [facility] Sodium 136 135 - 145 mmol/L LAB CHEMISTRY METHOD 10/08/2024 4:41 AM [facility] Potassium 3.7 3.5 - 5.1 mmol/L LAB CHEMISTRY METHOD 10/08/2024 4:41 AM [facility] Chloride 99 98 - 107 mmol/L LAB CHEMISTRY METHOD 10/08/2024 4:41 AM [facility] CO2 28 24 - 32 mmol/L LAB CHEMISTRY METHOD 10/08/2024 4:41 AM [facility] Anion Gap 9 5 - 14 LAB CHEMISTRY METHOD 10/08/2024 4:41 AM [facility] Glucose 109 70 - 199 mg/dL LAB CHEMISTRY METHOD 10/08/2024 4:41 AM [facility] BUN 24(H) 9 - 20 mg/dL LAB CHEMISTRY METHOD 10/08/2024 4:41 AM [facility] Creatinine 0.90 0.70 - 1.30 mg/dL LAB CHEMISTRY METHOD 10/08/2024 4:41 AM [facility] eGFR 101 >=60 mL/min/1. 73m2 LAB CHEMISTRY METHOD 10/08/2024 4:41 AM [facility] Comment:Calculation based on the Chronic Kidney Disease Epidemiology Collaboration (CKD-EPI) equation refit without adjustment for race. BUN/Creatinine Ratio 26.7(H) 12.0 - 20.0 LAB CHEMISTRY METHOD 10/08/2024 4:41 AM [facility] Calcium 8.6 8.4 - 10.2 mg/dL LAB CHEMISTRY METHOD 10/08/2024 4:41 AM [facility] AST (SGOT) 36 5 - 40 unit/L LAB CHEMISTRY METHOD 10/08/2024 4:41 AM [facility] ALT (SGPT) 29 7 - 52 unit/L LAB CHEMISTRY METHOD 10/08/2024 4:41 AM EST [facility] Alkaline Phosphatase 76 34 - 104 unit/L LAB CHEMISTRY METHOD 10/08/2024 4:41 AM EST [facility] Total Protein 5.9(L) 6.4 - 8.5 g/dL LAB CHEMISTRY METHOD 10/08/2024 4:41 AM EST [facility] Albumin 3.5 3.5 - 5.0 g/dL LAB CHEMISTRY METHOD 10/08/2024 4:41 AM EST [facility] Total Bilirubin 1.5(H) 0.3 - 1.0 mg/dL LAB CHEMISTRY METHOD 10/08/2024 4:41 AM [facility] Blood Venous blood specimen / Unknown Venipuncture / Unknown 10/08/2024 3:38 AM EST 10/08/2024 3:57 AM EST Fred FIGUEROA LAB BLOOD ORDERABLES Final Resul t [facility] [address] [place] [address], [place] [phone] * (ABNORMAL) Lipid panel with reflex to direct LDL (09/23/2024 8:15 AM EST) Cholesterol 187 0 - 200 mg/dL LAB CHEMISTRY METHOD 09/23/2024 9:28 AM [facility] Triglycerides 158(H) <150 mg/dL LAB CHEMISTRY METHOD 09/23/2024 9:28 AM [facility] HDL 54 32 - 70 mg/dL LAB CHEMISTRY METHOD 09/23/2024 9:28 AM [facility] LDL Calculated 101 50 - 130 mg/dL LAB CHEMISTRY METHOD 09/23/2024 9:28 AM [facility] VLDL Cholesterol Clint 31.6 mg/dL LAB CHEMISTRY METHOD 09/23/2024 9:[address] [facility] Comment:No established refer ence range. Blood Venous blood specimen / Unknown Venipuncture / Unknown 09/23/2024 8:15 AM EST 09/23/2024 8:54 AM EST us Kit Gonzalez MD LAB BLOOD ORDERABLES Fin al Result [facility] [address] [place] [address], [place] [phone] from Last 3 Months or Most Recently Relevant to Health Maintenance Insurance [facility] Advance Directives * Full Code - [...] currently active code status orders. Care Teams V Belt Finisher Relationship Specialty Start Date End Date Diane Polanco MD [address] [place] [address] PCP - General 04/07/24
--- OUTSIDE RECORDS SUMMARY | 2025-05-12 14:06 | XMS_ITS | Clinical Summary ---
Author Organization [facility] Address [address] [place] [address] Care Team Providers Care Dragger Out Name Role Phone LoraDiane villareal Primary Care Provider [phone] Allergies No known active allergies Medications acetaminophen [...] risk of scar related flutter. Regarding anticoagulation, [id number] score is 0. Currently taking Eliquis 5 [...] Department Care Team Description 05/05/2025 Results Follow-Up [address] Cardiology Medicine [address] [place] [id number] Camera Repair Technician: Jay Peters MD 04/20/2025 8:00 AM EDT Follow-Up [address] Cardiology [address] [address] Camera Repair Technician: Pam Hernandez PA Postoperative atrial fibrillation (HCC) (Primary Dx); Palpitations 03/07/2025 9:20 AM EDT - 03/07/2025 11:59 PM EDT Hospital Encounter [facility] Heart Station [address] [place] [id number] Postoperative atrial fibrillation (HCC) Discharge Disposition: Home or Self Care () 02/28/[address] Cardiology [address] [address] Camera Repair Technician: Jay Peters MD Postoperative atrial fibrillation (HCC) (Primary Dx) 02/25/[address] [place] [address] Camera Repair Technician: Jay Peters MD from Last 3 Months [...] Info) Description 06/01/2025 7:30 AM EDT Appointment [facility] Cardiac Ultrasound [address] [place] [address] 06/01/2025 9:20 AM EDT Follow-Up [facility] 4th floor Cardiology Medicine [address] [place] [address] Camera Repair Technician: Jay Peters MD [address] [place] [address] Health Maintenance Due Date Last Done Comments [...] 75+ series) 11/20/2043 Procedures * Due to [place] GeoOP law, this organization might not be sharing negative HIV tests. Procedure Name Priority Date/Time Associated Diagnosis Comments ECG 12-LEAD Routine 04/20/2025 8:08 AM EDT Postoperative atrial fibrillation (HCC) MOBILE CARDIAC SUPERVISOR HISTOLOGY (MCOT) 30 DAY MAIL OUT Routine 04/08/2025 2:32 PM EDT Postoperative atrial fibrillation (HCC) COMPREHENSIVE METABOLIC PANEL Routine 11/24/2024 1:36 PM EDT Atrial flutter, unspecified type (HCC) from Last 3 Months or Most Recently Relevant to Health Maintenance Results * Due to [place] GeoOP law, this organization might not be sharing negative HIV tests. * ECG 12 lead (04/20/2025 8:08 AM EDT) Ventricular Rate EKG 60 BPM MUSE EKG Atrial Rate 60 BPM MUSE EKG NE Interval 166 ms MUSE EKG QRS Interval 90 ms MUSE EKG QT Interval 418 ms MUSE EKG QTC Interval 418 ms MUSE EKG P Paulina 46 degrees MUSE EKG R Paulina 51 degrees MUSE EKG T Wave Paulina 45 degrees MUSE EKG 04/20/2025 8:08 AM EDT 04/24/2025 7:55 PM EDT Impressions MUSE EKG - 04/24/2025 7:55 PM EDT NORMAL SINUS RHYTHM NORMAL ECG WHEN COMPARED WITH ECG OF 23-Dec-2024 09:56, NO SIGNIFICANT CHANGE WAS FOUND Confirmed by Manjinder Gil ([id number]) on 04/24/2025 7:55:24 PM Narrative Procedure Note Manjinder Gil MD - 04/24/2025 IMPRESSION: NORMAL SINUS RHYTHM NORMAL ECG WHEN COMPARED WITH ECG OF 23-Dec-2024 09:56, NO SIGNIFICANT CHANGE WAS FOUND Confirmed by Manjinder Gil ([id number]) on 04/24/2025 7:55:24 PM Pam FIGUEROA ECG ORDERABLES Final Re sult MUSE EKG * MOBILE CARDIAC SUPERVISOR HISTOLOGY (MCOT) 30 DAY MAIL OUT (04/08/2025 2:32 PM EDT) Anatomical Region Laterality Modality Monitor Room Narrative 05/05/2025 10:17 AM EDT ATTENDING ADDENDUM: This was a Mobile Cardiac Candy Maker Helper (MCOT) 30 Day. This study was for [...] - 145 mmol/L 11/24/2024 2:27 PM EDT [facility] K 4.4 3.5 - 5.3 mmol/L 11/24/2024 2:27 PM EDT [facility] Cl 106 98 - 107 mmol/L 11/24/2024 2:27 PM EDT [facility] CO2 24 22 - 32 mmol/L 11/24/2024 2:27 PM EDT [facility] Anion Gap 11 5 - 15 11/24/2024 2:27 PM EDT [facility] Glucose 101(H) 65 - 99 mg/dL 11/24/2024 2:27 PM EDT [facility] Creatinine 0.88 0.60 - 1.30 mg/dL 11/24/2024 2:27 PM EDT [facility] Calcium 9.3 8.6 - 10.5 mg/dL 11/24/2024 2:27 PM EDT [facility] Total Protein 6.8 6.0 - 8.0 g/dL 11/24/2024 2:27 PM EDT [facility] Albumin 4.3 3.5 - 5.2 g/dL 11/24/2024 2:27 PM EDT [facility] Bilirubin, Total 0.5 0.2 - 1.2 mg/dL 11/24/2024 2:27 PM EDT [facility] Alkaline Phosphatase 107 35 - 129 U/L 11/24/2024 2:27 PM EDT [facility] AST 15 10 - 40 U/L 11/24/2024 2:27 PM EDT [facility] ALT 29 10 - 40 U/L 11/24/2024 2:27 PM EDT [facility] BUN 16 7 - 23 mg/dL 11/24/2024 2:27 PM EDT [facility] eGFR >90 >=60 mL/min/1. 73m2 11/24/2024 2:27 PM EDT [facility] Comment:The estimated glomer [...] - 4.2 g/dL 11/24/2024 2:27 PM EDT [facility] A/G Ratio 1.7 1.5 - 3.0 11/24/2024 2:27 PM EDT [facility] Blood Structure of peripheral vein / Unknown Venipuncture / Unknown 11/24/2024 1:36 PM EDT 11/24/2024 1:52 PM EDT us Jay Ordaz MD LAB BLOOD ORDERABLES Final R esult [facility] [address] [place] [address], from Last 3 Months or Most Recently Relevant to Health Maintenance Insurance [facility] HMO/POS Advance Directives * Full Code (Latest Code Status on File) Date Activated Date Inactivated Comments 11/26/2024 11:56 AM 11/26/2024 3:10 PM * Full Code Date Activated Date Inactivated Comments 11/26/2024 10:26 AM 11/26/2024 11:56 AM Care Teams Dragger Out Relationship Specialty Start Date End Date Diane Polanco [address] [place] [address] PCP - General Internal Medicine 11/24/24
--- OUTSIDE RECORDS SUMMARY | 2025-05-12 14:06 | XMS_ITS | Clinical Summary ---
Author Organization [facility] Address [address] [place] [address] Care Team Providers Care Obstetrics Teacher Name Role Phone Diane Polanco MD Primary Care Provider [phone] Allergies No known active allergies Medications Medication [...] age to complete this topic Care Teams Obstetrics Teacher Relationship Specialty Start Date End Date Diane Polanco MD [address] [place] [address] PCP - General Engineering And Operations Director 04/07/24
== END 2025-05-12 15:06 | disposition home or self-care (01) ==
LOC: HO.HMCC 12:41
PROVIDERS: PCP Internal Medicine; Visit Provider Internal Medicine
DX: I77.810 Thoracic aortic ectasia (principal); E78.2 Mixed hyperlipidemia; Z00.00 Encounter for general adult medical examination without abnormal findings

== ENCOUNTER → 2025-05-12 12:41 | Outpatient (BNVA) | payer BC, SELFPAY | PROVIDERS: PCP Internal Medicine; Visit Provider Internal Medicine | DX: Z00.00 Encounter for general adult medical examination without abnormal findings (principal); E78.2 Mixed hyperlipidemia; I77.810 Thoracic aortic ectasia | CPT/HCPCS: 96127 ==